=== PATIENT | male | born 1950 | race Caucasian/White ===

== ENCOUNTER 2019-12-24 16:32 | Outpatient (CLI) | payer MEDICARE, OTHER, SELFPAY ==
--- NOTE | ~2019-12-24 | XR_ITS ---
EXAMINATION: XR foot RT min 3V DATE: 12/24/2019 17:14 INDICATION: Right foot pain. TECHNIQUE: 4 views of the right foot with weightbearing were obtained. COMPARISON: None. FINDINGS: Forefoot varus and pes planus are noted. No fracture. There is mild osteoarthritis of first metatarsophalangeal joint and some of the interphalangeal joints and midfoot joints. There is modera te to severe osteoarthritis of second proximal and distal interphalangeal joints and second tarsometa tarsal joint. There are enthesophytes at the posterior and plantar aspects of calcaneal tuberosity. IMPRESSION: 1. Polyarticular osteoarthritis. Reviewed, dictated and finalized at location A.
--- NOTE | ~2019-12-24 | XR_ITS ---
EXAMINATION: XR foot LT min 3V DATE: 12/24/2019 17:14 INDICATION: Left foot pain. TECHNIQUE: 4 views of the left foot with weightbearing were obtained. COMPARISON: Left foot radiographs 10/28/2015 FINDINGS: There is forefoot varus. No fracture. There is mild osteoarthritis of first metatarsophalan geal joint and some of the interphalangeal joints and midfoot joints. There is severe osteoarthritis of second and third tarsometatarsal joints. There is an enthesophyte at posterior aspect of calcaneal tuberosity. IMPRESSION: 1. Polyarticular osteoarthritis. Reviewed, dictated and finalized at location A.
== END 2019-12-24 16:33 | disposition home or self-care (01) ==
PROVIDERS: PCP Family Medicine; Visit Provider Podiatrist Foot & Ankle Surgery
DX: M19.071 Primary osteoarthritis, right ankle and foot (principal); M19.072 Primary osteoarthritis, left ankle and foot
CPT/HCPCS: 73630

== ENCOUNTER 2020-05-16 11:26 | Outpatient (NON) | payer MEDICARE, OTHER, SELFPAY ==
[2020-05-17 21:18] LABS: SARS-CoV-2 RNA PCR Negative
== END 2020-05-16 11:27 ==
LOC: ANHCOVIDDT 11:30
PROVIDERS: PCP Family Medicine; Visit Provider Family Medicine
DX: Z20.828 Contact with and (suspected) exposure to other viral communicable diseases (principal)
CPT/HCPCS: 87635; C9803; U0003

== ENCOUNTER 2021-02-17 14:45 | Emergency (ER) | payer MEDICARE, OTHER, SELFPAY ==
[2021-02-17] VITALS (8 sets, daily range): BP systolic 138–167; BP diastolic 59–85; PULSE 95–127; RESP 18–22; TEMP 37.7–39; O2SAT 94–99
--- NOTE | ~2021-02-17 | CT_ITS ---
EXAMINATION: CT abdomen pelvis w con DATE: 02/17/2021 19:01 INDICATION: Left lower quadrant abdominal pain, nausea and vomiting TECHNIQUE: Computed tomography (CT) of the abdomen and pelvis was performed with 100 mL Omnipaque-350 intravenous contrast. Automated exposure control and iterative reconstruction technique were employe d. The dose-length product was 887.00 mGy-cm. COMPARISON: CT pelvis dated 09/06/2017 FINDINGS: Elevation of the right hemidiaphragm with basilar compressive atelectasis at the right middle and low er lobes. Heart size is normal. No pericardial or pleural effusion. Liver, gallbladder, spleen, pancr eas, bilateral adrenal glands and kidneys are normal. No abnormal bowel wall thickening or obstructio n. Normal appendix. Bladder is normal. Mild prostatomegaly. Moderate-sized left and small right fat-c ontaining inguinal hernias. No free intraperitoneal gas or fluid. No pathologically enlarged abdomina l or pelvic lymphadenopathy. Severe lumbar spondylosis. IMPRESSION: 1. No acute intra-abdominal/pelvic process. 2. Small right and moderate-sized left fat-containing inguinal hernias. Reviewed, dictated and finalized at location A.
[2021-02-17 15:56] LABS: INR 0.9; Prothrombin Time 12.1 Seconds (11.1-14.7)
[2021-02-17 15:57] LABS: Partial Thromboplastin Time 28.5 SECONDS (22.3-36.8)
[2021-02-17 18:35] LABS: Basophils Percent Auto 0.3 % (0.2-1.2); Eosinophils Percent Auto 0.1 % (0-4.4); Hematocrit 43.1 % (42.0-52.0); Hemoglobin 14.6 g/dL (14.0-18.0); Immature Granulocyte Absolute 0.05 K/mm3 (0.00-0.031); Immature Granulocyte Percent A 0.4 % (0-0.5); Lymphocytes Absolute Auto 0.87 K/mm3 (0.9-3.2); Lymphocytes Percent Auto 7.3 % (18.3-44.2); Mean Corpuscular HGB Conc 33.9 g/dl (32-36); Mean Corpuscular Hemoglobin 29.7 pg (26-34); Mean Corpuscular Volume 87.8 fl (80-100); Mean Platelet Volume 9.6 fl (7.4-10.4); Neutrophils Percent Auto 83.9 % (45.5-73.1); Platelet Count Result 411 k/mm3 (150-375); Red Blood Count 4.91 M/mm3 (4.6-6.20); Red Cell Distribution Width 13.8 % (11.5-14.5); White Blood Count 11.9 K/mm3 (4.5-10.0)
[2021-02-17 18:38] LABS: Add Urine Microscopic? YES; Appearance Urine Clear (Clear); Bilirubin Urine Negative (Negative); Blood Urine Negative (Negative); Color Urine Amber (Yellow); Glucose Urine UA Negative (Negative); Ketones Urine Negative (Negative); Leukocyte Esterase Ur Negative LEU/UL (Negative); Nitrate Urine Negative (Negative); Protein Urine 3+ mg/dL (Negative); Specific Grav Ur 1.014 (1.001-1.035); Urobilinogen Urine Negative mg/dL (<2.0); WBC Urine 0-3 /hpf
[2021-02-17 18:46] LABS: Estimated CRCL calculation 39 ml/min; Estimated Glomerular Filt Rate 43
[2021-02-17 19:13] LABS: Alanine Aminotransferase 442 U/L (4-50); Albumin Level 4.4 g/dL (3.5-5.1); Alkaline Phosphatase 320 U/L (38-126); Anion Gap 9 mmol/L (8-16); Aspartate Amino Transferase 356 U/L (17-59); Bilirubin,Total 1.7 mg/dL (0.2-1.3); Blood Urea Nitrogen 21 mg/dL (9-20); Calcium 9.4 mg/dL (8.4-10.2); Carbon Dioxide 29 mmol/L (22-30); Chloride 98 mmol/L (98-107); Estimated CRCL calculation 39 ml/min; Estimated Glomerular Filt Rate 43; Glucose 127 mg/dL (65-110); Potassium 3.9 mmol/L (3.4-5.0); Sodium 136 mmol/L (137-145)
--- NOTE | 2021-02-17 20:33 | ED.ABDPAIN ---
HPI - Abdominal Pain General Chief Complaint: Abdominal Pain Stated Complaint: abd pain/temp Time Seen by Provider: 02/17/21 17:50 Source: patient Mode of arrival: ambulatory Limitations: no limitations History of Present Illness HPI narrative: 70-year-old with a history of hypertension here with complaints of left lower abdominal pain for past 3 days associated with nausea and vomiting. He denies any diarrhea. Denies any blood in the stool. No previous history of diverticulosis or diverticulitis. He denies trauma. MD elicited complaint: abdominal pain Pertinent past history: none Onset (ago): day(s) (3) Pain Consistency: constant Location: LLQ Severity: moderate Quality: aching Radiation: none Migration to: no migration Exacerbating factors: nothing Relieving factors: nothing Associated symptoms: fever Related Data Allergies Allergy/AdvReac Type Severity Reaction Status Date / Time No Known Allergies Allergy Unverified 02/17/21 18:04 Review of Systems Review of Systems: All systems reviewed & are unremarkable except as noted in HPI and below Constitutional: Constitutional: Reports fever(s) Eyes: Eyes: Reports no additional eye complaints ENT: Reports system reviewed and no additional complaints, except as documented Cardiovascular: Cardiovascular: Reports no additional cardiovascular complaints Respiratory: Respiratory: Reports no additional respiratory complaints Gastrointestinal: Gastrointestinal: Reports as per HPI Genitourinary: Genitourinary: Reports no additional male genitourinary complaints Musculoskeletal: Musculoskeletal: Reports no additional musculoskeletal complaints Neurologic: Reports system reviewed and no additional complaints, except as documented [facility] Family History Family History Father Family history of osteoarthritis Family history of primary malignant neoplasm of liver Family history of lung cancer Family history of throat cancer Patient's father is Mother Family history of malignant neoplasm Family history of malignant neoplasm of thyroid Family history of malignant neoplasm of bone Family history of malignant neoplasm of breast in first degree relative Other Hypertension Social History Social History Smoking status: Never smoker Alcohol intake: current Exam Narrative: GENERAL: Well-appearing, well-nourished, and in no acute distress. Febrile HEAD: Normocephalic, atraumatic. EYES: PERRLA and EOMI.. NECK: Supple. CHEST: Clear to auscultation. No respiratory distress. HEART: Tachycardic. No murmur heard. Normal peripheral pulses. ABDOMEN: Soft, Mild tenderness in the LLQ, nondistended, normal active bowel sounds. EXTREMITIES: Normal range of motion. No edema. SKIN: Warm, dry, no rash. NEURO: No focal deficits. Alert and oriented x3. PSYCH: Normal mood and affect. Course Course Emergency Course: Patient did receive IV fluids and IV Tylenol. Discussed lab values CT findings with the patient. Patient feeling much better I discussed lab, CT findings with the patient. Told him to follow-up with his primary doctor tomorrow. I discussed with his primary doctor Dr. Childress nurse practitioner. Vital Signs Vital signs: Vital Signs Temperature 39.0 C H 02/17/21 14:52 Pulse Rate 123 H 02/17/21 14:52 Respiratory Rate 20 02/17/21 14:52 Blood Pressure 159/85 H 02/17/21 14:52 Pulse Oximetry 99 02/17/21 14:52 Temperature 37.7 C H 02/17/21 20:29 Pulse Rate 99 02/17/21 20:29 Respiratory Rate 22 H 02/17/21 20:29 Blood Pressure 146/69 H 02/17/21 20:29 Pulse Oximetry 95 02/17/21 20:29 MDM - Abdominal Pain MDM Narrative Medical decision making narrative: Given history of her left lower quadrant pain I would like to do a CBC chemistry and CAT scan to rule out diverticulitis or bowel labs obstru
[2021-02-17 20:40] LABS: CRP 15.6 mg/dL (<1.0)
== END 2021-02-17 21:42 | disposition home or self-care (01) ==
PROVIDERS: Emergency Medicine; Emergency Provider Family Medicine; PCP Family Medicine
DX: R10.32 Left lower quadrant pain (principal); R50.9 Fever, unspecified; K40.90 Unilateral inguinal hernia, without obstruction or gangrene, not specified as recurrent
CPT/HCPCS: 36415; 74177; 80053; 81001; 83605; 85025; 85610; 85730; 86140; 87040; 87077; 87186; 96374; 99284; J0131; Q9967

== ENCOUNTER → 2021-09-20 16:46 | Outpatient (CLI) | payer MEDICARE, OTHER, SELFPAY ==
--- NOTE | ~2021-09-20 | XR_ITS ---
XR lumbar spine 2-3V DATE: 09/20/2021 17:30 INDICATION: Lower extremity paresthesia TECHNIQUE: AP, lateral, coned lateral lumbosacral views COMPARISON: 05/10/2016 MR lumbar spine FINDINGS: Lower thoracic spine degenerative spurring. There is very severe degenerative disc disease at L1-2, L2-3, L3-4 and L5-S1. There is associated mil d retrolisthesis at each of these levels. There is moderate degenerative disc disease and mild grade 1 anterolisthesis at L4-5. There is degene rative change at the apophyseal joints throughout the lumbar and lumbosacral spine. No recent fracture or bone destruction is evident. The included lower thoracic and lumbar pedicles ap pear intact. The sacroiliac joints are intact. IMPRESSION: Severe degenerative changes Reviewed, dictated and finalized at location A. IMPRESSION: Severe degenerative changes
== END ==
PROVIDERS: Visit Provider Nurse Practitioner Family
DX: R20.2 Paresthesia of skin (principal); M85.88 Other specified disorders of bone density and structure, other site
CPT/HCPCS: 72100

== ENCOUNTER 2021-11-02 09:22 | Outpatient (CLI) | payer MEDICARE, OTHER, SELFPAY ==
--- NOTE | 2021-11-02 11:00 | NEURO_ITS ---
Impression: # Complains of numbness below the waist. # Normal nerve conduction study. # Normal needle/EMG exam except mild scarcity of motor unit potentials. # Clinical correlation recommended; Higher involvement needs to be ruled out. Nerve Conduction Studies Anti Sensory Summary Table Stim Site NR Peak (ms) P-T Amp (?V) Site1 Site2 Delta-P (ms) Dist (cm) Taco (m/s) Left Sup Fibular Anti Sensory (Ant Lat Mall) 14 cm 4.0 41.4 14 cm Ant Lat Mall 4.0 16.0 40 Right Sup Fibular Anti Sensory (Ant Lat Mall) 14 cm 3.4 11.7 14 cm Ant Lat Mall 3.4 16.0 47 Left Sural Anti Sensory (Lat Mall) Calf 3.4 10.8 Calf Lat Mall 3.4 16.0 47 Right Sural Anti Sensory (Lat Mall) Calf 3.8 10.2 Calf Lat Mall 3.8 16.0 42 Motor Summary Table Stim Site NR Onset (ms) O-P Amp (mV) Site1 Site2 Delta-0 (ms) Dist (cm) Taco (m/s) Left Peroneal Motor (Vastus Med) Ankle 4.5 1.5 Popit Ankle 8.2 36.0 44 Popit 12.7 1.2 Right Peroneal Motor (Vastus Med) Ankle 4.5 0.5 Popit Ankle 8.6 36.0 42 Popit 13.1 0.5 Left Tibial Motor (Abd Lou Brev) Ankle 5.3 2.6 Knee Ankle 9.5 39.0 41 Knee 14.8 1.2 Right Tibial Motor (Abd Lou Brev) Ankle 5.2 3.4 Knee Ankle 9.6 39.0 41 Knee 14.8 2.2 F Wave Studies NR F-Lat (ms) L-R F-Lat (ms) Left Peroneal (Mrkrs) (EDB) 57.66 1.17 Right Peroneal (Mrkrs) (EDB) 58.83 1.17 Left Tibial (Mrkrs) (Abd Hallucis) 57.50 0.00 Right Tibial (Mrkrs) (Abd Hallucis) 57.50 0.00 EMG Side Muscle Nerve Root Ins Act Fibs Amp Dur Recrt Comment Right AntTibialis Dp Br Fibular L4-5 Nml Nml Nml Nml Nml Right Gastroc Tibial S1-2 Nml Nml Nml Nml Nml Right Fibularis Long Sup Br Fibular L5-S1 Nml Nml Nml Nml Nml Right Flex Dig Long Tibial L5-S2 Nml Nml Nml Nml Nml Right Ext Dig Brev Dp Br Fibular L5, S1 Nml Nml Nml Nml Nml Left AntTibialis Dp Br Fibular L4-5 Nml Nml Nml Nml Nml Left Gastroc Tibial S1-2 Nml Nml Nml Nml Nml Left Fibularis Long Sup Br Fibular L5-S1 Nml Nml Nml Nml Nml Left Flex Dig Long Tibial L5-S2 Nml Nml Nml Nml Nml Left Ext Dig Brev Dp Br Fibular L5, S1 Nml Nml Nml Nml Nml MTDD
== END 2021-11-02 09:23 | disposition home or self-care (01) ==
LOC: ANHNEURO 09:24
PROVIDERS: Visit Provider Nurse Practitioner Family
DX: R20.2 Paresthesia of skin (principal)
CPT/HCPCS: 95886; 95910

== ENCOUNTER → 2022-01-07 12:18 | Outpatient (CLI) | payer MEDICARE, OTHER, SELFPAY ==
--- NOTE | ~2022-01-07 | MR_ITS ---
EXAMINATION: MR lumbar spine wo con DATE: 01/07/2022 12:43 INDICATION: Degeneration of lumbar intervertebral discs with numbness extending from the waist down a fter walking or standing over the past 6 months. TECHNIQUE: Magnetic resonance imaging (MRI) of the lumbar spine was performed without intravenous con trast. Sequences included sagittal T2-weighted FSE, sagittal T2-weighted FS FSE, sagittal T1-weighted FSE, and axial T2-weighted FSE. COMPARISON: 05/10/2016 FINDINGS: 1 mm retrolisthesis L1 on L2, 2 mm retrolisthesis L2 on L3 and L3 on L4 and 3 mm retrolisthesis L5 on S1. Unchanged chronic mild anterior wedging at T11 and T12. Interval progression of severe disc heig ht loss at L1-L2 with fusion or developing fusion at the right side of the disc space. Additional sev ere disc height loss with degenerative endplate changes at L2-L3. Moderate to severe left-sided disc height loss with left-sided temporal endplate changes at L3-L4. Mild disc height loss at T10-T11 thro ugh T12-L1 and L4-L5, moderate disc height loss at L5-S1. Marrow signal is normal aside from the fibr ofatty and fibrovascular degenerative endplate changes. The conus medullaris terminates at L1-L2. The re is normal signal in the caudal spinal cord. Paravertebral soft tissues are unremarkable. The follo wing disc levels are specifically discussed: T12-L1: Disc is mildly bulging. There is mild bilateral facet joint osteoarthritis. There is minimal bilateral neural foraminal stenosis. There is normal central canal stenosis. L1-L2: Annular fissure and small right paracentral disc extrusion which extends-2 mm beyond the infer ior margin of L1 and which extends 4 mm caudal to the level of the more anterior superior endplate of L1. There is mild bilateral facet joint osteoarthritis. There is moderate right and mild to moderate left neural foraminal stenosis. There is moderate central canal stenosis. L2-L3: The disc does not extend beyond the more posterior endplate margin of L2. There is hypertrophy of the ligamentum flavum. There is severe left and moderate right facet joint osteoarthritis. There is moderate left and moderate to severe right neural foraminal stenosis. Inward There is severe cent ral canal stenosis at level of the disc as well as slightly more cephalad where there is inward bulgi ng of the epidural fat. The cauda equina appears taut caudal to the level of the disc space with some serpiginous lax appearing fibers to the cauda equina seen more cephalad at the level of the L1 verte bral body. L3-L4: Disc does not extend beyond the more posterior endplate margin of L1. There is hypertrophy of the ligamentum flavum. There is a left and mild to moderate right facet joint osteoarthritis. There is moderate bilateral neural foraminal stenosis. There is severe central canal stenosis. There is inc reased epidural fat extending the region of severe stenosis both above and below the level of the dis c space. L4-L5: Disc bulge extending beyond the endplate margins at the left and right lateral recesses but no t beyond the more posterior endplate margin of L3-4 centrally. There is hypertrophy of the ligamentum flavum. There is severe left and moderate right facet joint osteoarthritis. There is moderate bilate ral neural foraminal stenosis. There is severe central canal stenosis. L5-S1: Disc is mildly bulging with annular fissure and superimposed right foraminal zone disc extrusi on with disc material extending couple millimeters cephalad and caudal to the level of the endplates. There is severe bilateral facet joint osteoarthritis. There is moderate left and moderate to severe right neural foraminal stenosis. There is mild central canal stenosis. IMPRESSION: 1. Significant interval progression in severe lumbar spondylosis with severe central canal stenosis e xtending from L1-L2 through L4-L5 and with moderate to severe gauri
== END ==
PROVIDERS: PCP Family Medicine; Visit Provider Family Medicine
DX: M47.817 Spondylosis without myelopathy or radiculopathy, lumbosacral region (principal); M48.07 Spinal stenosis, lumbosacral region
CPT/HCPCS: 72148

== ENCOUNTER → 2023-01-25 12:55 | Outpatient (CLI) | payer MEDICARE, OTHER, SELFPAY ==
--- NOTE | ~2023-01-25 | CT_ITS ---
EXAMINATION: CT lumbar spine wo con DATE: 01/25/2023 14:33 INDICATION: Neurogenic claudication due to lumbar stenosis. TECHNIQUE: Computed tomography (CT) of the lumbar spine was performed without intravenous contrast. A utomated exposure control and iterative reconstruction technique were employed. The dose-length produ ct was 780.88 mGy-cm. COMPARISON: Lumbar spine MRI 01/25/2023 FINDINGS: There is 8 degrees dextrocurvature of lumbar spine. There is 3 mm retrolisthesis of L1 on L 2 and L2 on L3. There is severely decreased disc height at L1-L2 with interbody fusion. There is terri rely decreased disc height at L2-L3 and L3-L4, moderately decreased disc height at L4-L5, and severel y decreased disc height at L5-S1. There is developmental osseous central canal stenosis in lumbar spi ne. The following disc levels are specifically discussed: L1-L2: There is severe bilateral facet joint osteoarthritis. There is moderate right and mild left ne ural foraminal stenosis. There is mild central canal stenosis. L2-L3: The disc is bulging. There is severe bilateral facet joint osteoarthritis. There is moderate b ilateral neural foraminal stenosis. There is mild central canal stenosis. There is moderate stenosis of the lateral recesses. L3-L4: The disc is bulging. There is severe bilateral facet joint osteoarthritis. There is moderate b ilateral neural foraminal stenosis. There is mild central canal stenosis. There is moderate stenosis of the lateral recesses. L4-L5: The disc is bulging. There is severe bilateral facet joint osteoarthritis. There is moderate b ilateral neural foraminal stenosis. There is severe central canal stenosis. L5-S1: The disc is bulging. There is severe bilateral facet joint osteoarthritis. There is severe rig ht and moderate left neural foraminal stenosis. There is mild central canal stenosis. IMPRESSION: 1. Severe lumbar spondylosis. Reviewed, dictated and finalized at location A.
--- NOTE | ~2023-01-25 | MR_ITS ---
MRI of the lumbar spine Clinical History: Spinal stenosis, claudication Technique: Axial T2-weighted images, and sagittal T1-weighted, T2-weighted, and T2 fat-sat images wer e acquired. COMPARISON: 01/07/2022 Findings: No acute fracture seen. 5 mm retrolisthesis of L1 over L2 present. 5 mm retrolisthesis of L 2 over L3 present. Minimal grade 1 retrolisthesis of L3 over L4 present. Minimal grade 1 retrolisthes is of L5 over S1 present. Osseous alignment is essentially stable from prior exam. There are reactive marrow signal changes due to degenerative disc disease, most particularly about the L1-L2 and L2-L3 disc spaces. At L1-L2, there is severe degenerative disc narrowing. There is mild facet arthropathy. There is no f rank central canal stenosis. There is severe right neural foraminal narrowing and mild left neural fo raminal narrowing. At L2-L3, there is severe degenerative disc narrowing. Disc bulge and severe facet arthropathy result in moderate to severe spinal canal stenosis/thecal sac compression. There is severe bilateral neural foraminal narrowing. At L3-L4, there is advanced degenerative disc narrowing. Disc bulge and severe facet arthropathy resu lt in severe spinal canal stenosis/thecal sac compression. There is severe bilateral neural foraminal narrowing, left worse than right. At L4-L5, there is moderate degenerative disc narrowing. Disc bulge and severe facet arthropathy resu lt in severe spinal canal stenosis/thecal sac compression. There is severe right neural foraminal mary carmen rowing, and moderate to severe left neural foraminal narrowing. At L5-S1, there is diffuse disc bulge with severe facet arthropathy. There is severe bilateral neural foraminal narrowing. No brady central canal stenosis. Paravertebral soft tissues are unremarkable. Impression: Severe degenerative spondylosis throughout the lumbar spine, as detailed above. There is multilevel s evere spinal canal stenosis/thecal sac compression, and multilevel severe bilateral neural foraminal narrowing. Multiple grade 1 retrolistheses in the lumbar spine, as detailed above. Reviewed, dictated and finalized at [facility] M. Impression: Severe degenerative spondylosis throughout the lumbar spine, as detailed above. There is multilevel severe spinal canal stenosis/thecal sac compression, and m ultilevel severe bilateral neural foraminal narrowing. Multiple grade 1 retrolistheses in the lumbar spine, as detailed above.
== END ==
PROVIDERS: PCP Family Medicine; Visit Provider Neurological Surgery
DX: M48.062 Spinal stenosis, lumbar region with neurogenic claudication (principal); M47.816 Spondylosis without myelopathy or radiculopathy, lumbar region
CPT/HCPCS: 72131; 72148

== ENCOUNTER 2023-09-15 14:00 | Outpatient (CLI) | payer MEDICARE, OTHER, SELFPAY ==
--- NOTE | ~2023-09-15 | XR_ITS ---
EXAMINATION: XR hip LT 2V w AP pelvis INDICATION: Left hip pain TECHNIQUE: AP view the pelvis and two views of the left hip are obtained. COMPARISON: None available FINDINGS: Bone alignment is normal. There is no fracture. There is mild osteoarthritis of the hips. S evere lower lumbar spondylosis is noted. IMPRESSION: 1. No acute osseous abnormality. Reviewed, dictated and finalized at location B. 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
== END 2023-09-15 14:01 ==
LOC: MICIMG 14:03
PROVIDERS: PCP Family Medicine; Visit Provider Family Medicine
DX: M25.552 Pain in left hip (principal)
CPT/HCPCS: 73502

== ENCOUNTER 2023-11-08 14:32 | Outpatient (CLI) | payer MEDICARE, OTHER, SELFPAY ==
--- NOTE | ~2023-11-08 | US_ITS ---
US renal BI DATE: 11/08/2023 15:26 INDICATION: Hypertensive chronic renal disease TECHNIQUE: Real-time imaging of the kidneys and urinary bladder COMPARISON: 02/17/2021 CT abdomen pelvis FINDINGS: The right kidney measures approximately 10.2 cm length, left kidney 9.6 cm length. Relatively increased echogenicity of the renal parenchyma may be consistent with chronic renal diseas e. No renal mass lesion or hydronephrosis is evident. No intraluminal mass lesion of the urinary bladder is detected. IMPRESSION: Relatively increased echogenicity of the bilateral renal parenchyma which may be due to c hronic renal disease No evidence of hydronephrosis or renal mass lesion Reviewed, dictated and finalized at Location A. Reviewed, dictated and finalized at location A. IMPRESSION: Relatively increased echogenicity of the bilateral renal parenchyma which may be due to chronic renal disease No evidence of hydronephrosis or renal mass lesion
== END 2023-11-08 14:33 | disposition home or self-care (01) ==
LOC: ANHIMG 14:32
PROVIDERS: PCP Family Medicine
DX: I12.9 Hypertensive chronic kidney disease with stage 1 through stage 4 chronic kidney disease, or unspecified chronic kidney disease (principal)
CPT/HCPCS: 76775

== ENCOUNTER 2023-11-15 10:24 | Outpatient (CLI) | payer MEDICARE, OTHER, SELFPAY ==
[2023-11-15 11:18] LABS: Basophils Absolute Auto 0.1 K/mm3 (0.0-0.1); Basophils Percent Auto 0.8 % (0.2-1.2); Eosinophils Absolute Auto 0.5 K/mm3 (0-0.3); Hematocrit 42.4 % (42.0-52.0); Hemoglobin 14.1 g/dL (14.0-18.0); Immature Granulocyte Absolute 0.03 K/mm3 (0.00-0.031); Immature Granulocyte Percent A 0.5 % (0-0.5); Lymphocytes Absolute Auto 1.31 K/mm3 (0.9-3.2); Lymphocytes Percent Auto 19.8 % (18.3-44.2); Mean Corpuscular HGB Conc 33.3 g/dl (32-36); Mean Corpuscular Hemoglobin 30.4 pg (26-34); Mean Corpuscular Volume 91.4 fl (80-100); Mean Platelet Volume 9.2 fl (7.4-10.4); Monocytes Absolute Auto 0.6 K/mm3 (0.1-0.6); Monocytes Percent Auto 8.9 % (2.6-8.5); Neutrophils Absolute Auto 4.2 K/mm3 (1.3-6.7); Platelet Count Result 413 k/mm3 (150-375); Red Blood Count 4.64 M/mm3 (4.6-6.20); Red Cell Distribution Width 14.6 % (11.5-14.5); White Blood Count 6.6 K/mm3 (4.5-10.0)
[2023-11-15 11:25] LABS: Creatinine Urine 26.6 mg/dL; Total Protein Urine Random 29 mg/dL; Ur Ttl Prot Creatinine Ratio 1.09 mg/mg (0-0.20)
[2023-11-15 11:38] LABS: Albumin Level 4.5 g/dL (3.5-5.1); Anion Gap 7 mmol/L (4-12); Blood Urea Nitrogen 37 mg/dL (9-20); Calcium 9.4 mg/dL (8.4-10.2); Carbon Dioxide 29 mmol/L (22-30); Chloride 98 mmol/L (98-107); Estimated Glomerular Filt Rate 35; Glucose 130 mg/dL (65-110); Phosphorus 3.6 mg/dL (2.5-4.5); Potassium 3.6 mmol/L (3.4-5.0); Sodium 134 mmol/L (137-145)
[2023-11-15 11:45] LABS: Parathyroid Intact 59.7 pg/mL (7.5-53.5)
[2023-11-15 12:07] LABS: MALB Creatinine Ratio 436.1 mg/g (0-30)
[2023-11-16 06:54] LABS: Protein, Total 7.3 g/dL (6.1-8.1)
[2023-11-16 13:04] LABS: Kappa\\Lambda Light Chains 1.45 (0.26-1.65); Lambda Light Chain 35.5 mg/L (5.7-26.3)
[2023-11-17 08:28] LABS: Albumin 4.2 g/dL (3.8-4.8); Alpha 1 Globulin 0.3 g/dL (0.2-0.3); Alpha 2 Globulin 0.7 g/dL (0.5-0.9); Beta 1 Globulin 0.5 g/dL (0.4-0.6); Gamma Globulin 1.2 g/dL (0.8-1.7)
[2023-11-21 14:58] LABS: Immunofixation, Serum Normal pattern.
== END 2023-11-15 10:25 | disposition home or self-care (01) ==
PROVIDERS: PCP Family Medicine
DX: I12.9 Hypertensive chronic kidney disease with stage 1 through stage 4 chronic kidney disease, or unspecified chronic kidney disease (principal); N18.9 Chronic kidney disease, unspecified
CPT/HCPCS: 36415; 80069; 82043; 82570; 83883; 83970; 84155; 84156; 84165; 85025; 86334

== ENCOUNTER 2024-08-19 11:25 | Outpatient (CLI) | payer MEDICARE, OTHER, SELFPAY ==
--- OUTSIDE RECORDS SUMMARY | 2024-08-19 12:15 | XMS_ITS | Clinical Summary ---
Author Organization 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
--- OUTSIDE RECORDS SUMMARY | 2024-08-19 12:15 | XMS_ITS | Clinical Summary ---
Author Organization [facility] Address [address] [place] [address] Care Team Providers Care Cement Production Plant Operator Name Role Phone Nelia Naylor MD Primary Care Provider + Allergies No known active allergies Medications bimatoprost (LUMIGAN) 0.01 % ophthalmic dropsIndications :open angle glaucoma Administer 1 drop into both eyes nightly as needed (dry eyes) 5 Active montelukast (SINGULAIR) 10 mg tabletIndication s:Seasonal Allergic Rhinitis Take 1 tablet (10 mg total) by mouth nightly [address] (PROTONIX) 40 mg EC tablet Take 1 tablet (40 mg total) by mouth every morning 2 Active allopurinoL (ZYLOPRIM) 100 mg tabletIndication s:prevention of acute gout attack Take 2 tablets (200 mg total) by mouth 2 (two) times a day 9 Active cycloSPORINE (Restasis) 0.05 % ophthalmic emulsion Administer 1 drop into both eyes as needed (dry eye) Active fluticasone propionate (FLONASE) 50 mcg/actuation nasal spray Administer 1 spray into each nostril as needed for allergies 9 Active rosuvastatin (CRESTOR) 40 mg tabletIndication s:hyperlipidemia Take 1 tablet (40 mg total) by mouth every morning 3 Active carvediloL (COREG) 12.5 mg tabletIndication s:hypertension Take 1 tablet (12.5 mg total) by mouth 2 (two) times a day with meals 4 11/30/19 25 Active losartan (COZAAR) 50 mg tabletIndication s:hypertension Take 1 tablet (50 mg total) by mouth every morning 4 11/30/19 25 Active tamsulosin (FLOMAX) 0.4 mg extended release capsuleIndicatio ns:benign prostatic hyperplasia with lower urinary tract sx Take 1 capsule (0.4 mg total) by mouth every morning 4 11/30/19 25 Active torsemide (DEMADEX) 20 mg tabletIndication s:Edema Take 1 tablet (20 mg total) by mouth general studies program chair before breakfast 4 11/30/19 25 Active tadalafiL (CIALIS) 5 mg tablet Take 1 tablet (5 mg total) by mouth every morning 4 Active mupirocin (BACTROBAN) 2 % ointment Apply to each nostril 2 (two) times a day Use pea size amount in each nostril twice daily for 5 days prior to surgery day. After application, press sides of nose together and gently massage. 22 g 4 Active multivit-mineral s/folic acid (CENTRUM ADULTS ORAL) Take by mouth every morning Active DULoxetine DR (CYMBALTA) 30 mg capsule Take 1 capsule (30 mg total) by mouth daily as needed (pain/inflammat ion) Active HYDROcodone-acet aminophen (NORCO) 7.5-325 mg per tabletIndication s:Pain Take 1 tablet by mouth every 4 (four) hours as needed for pain 40 tablet 4 Active cyclobenzaprine (FLEXERIL) 10 mg tablet Take 1 tablet (10 mg total) by mouth 3 (three) times a day as needed for muscle spasms 40 tablet 4 Active Active Problems Problem Noted Date Diagnosed Date Neurogenic claudication due to lumbar spinal elaina nosis 04/16/2024 Pruritic rash 01/30/2024 Back pain 09/28/2023 Spinal stenosis 09/28/2023 Primary osteoarthritis of right knee 09/18/2023 Primary osteoarthritis of left knee 09/18/2023 Pain of left hip joint 09/10/2023 Herpes simplex 03/02/2023 Cobalamin deficiency 12/20/2022 Anemia 11/15/2022 High prostate specific antigen (PSA) 09/16/2022 High serum creatinine 09/16/2022 Degeneration of lumbar intervertebral disc 09/12 Disorder of bursae of shoulder region 02/23/2022 Tailor's bunion of right foot 12/30/2019 Arthritis 12/16/2019 Foot pain 12/16/2019 Gout 12/16/2019 Hypertensive disorder 12/16/2019 Hypercholesterolemia 12/16/2019 Incarcerated inguinal hernia 02/15/2018 Overview (02/15/2018): Added automatically from request for surgery [id number] 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 Nuclear sclerotic cataract 08/18/2015 Visual field defect 03/04/2015 Acquired ptosis of eyelid of both eyes 5 Arthralgia of shoulder 02/26/2014 Keratosis, senilis 01/25/2013 Lentigo 01/25/2013 Benign neoplasm of skin of trunk 01/25/2013 Skin tag 01/25/2013 Encounters Date Type Department Care Team Description 06/24/2024 11:48 AM GOVERNMENT GUARD - 06/24/2024 11:59 PM GOVERNMENT GUARD Hospital Encounter [facility] - Imaging [address] [place] [address] Neurogenic claudication due to lumbar spinal stenosis Discharge Disposition: Discharge to home or self care 06/24/2024 11:30 AM GOVERNMENT GUARD Office Visit [facility] [address] [address] Edwardo Toledo MD PhD Neurogenic claudication due to lumbar spinal stenosis (Primary Dx) 06/21/2024 Orders Only [facility] [address] [facility] [address] [address] Edwardo Toledo MD PhD Neurogenic claudication due to lumbar spinal stenosis (Primary Dx) from Last 3 Months Immunizations Name Administration Dates Next Due Influenza, Quadrivalent, Hig h Dose, Preservative Free, Intrr 05/31/2021,04/10/2020 Influenza, Trivalent, High D ose, Split, Preservative Free, Intramuscular 04/27/2019,05/04/2018,05/19/2017,05/12 Influenza, Trivalent, Preser vative Free, Intramuscular 05/31/2021,04/19/2015 Influenza, Unspecified 05/15/2023,2019,05/12/2013,06/26 Pneumococcal Conjugate PCV 13 05/19/2017 Pneumococcal Polysaccharide PPV23 05/20/2018 Surgical History Surgery Date Site/Laterality Comments EPIDURAL INJECTION LUMBOSACRAL 05/23/2014 N/A KNEE ARTHROSCOPY Knee Arthroscopy (Therapeutic) - (Added by TW Conv) HERNIA REPAIR 07/10/2005 - 07/09/2006 Medical History Medical History Date Comments Personal history of other di seases of the circulatory system History of hypertension - (A dded by VANDANA Conv) Personal history of other en docrine, nutritional and metabolic disease History of hyperlipi demia - (Added by VANDANA Conv) Sleep apnea Gastric reflux Glaucoma Hypertension CKD (chronic kidney disease) , stage III (HCC) Family History Medical History Relation Name Comments Cancer Father Hypertension Father Cancer Mother Family history of cancer - (Added by TW Conv) Cancer Sister Relation Name Status Comments Father Mother Sister Social History Tobacco Use Types Packs/Day Years Used Date Smoking Tobacco: Never Smokeless Tobacco: Never Tobacco Cessation:Counseling Given: Not Answered Alcohol Use Standard Drinks/Week Comments Yes 12 (1 standard drink = 0.6 oz pu re alcohol) AUDIT-C Answer Date Recorded Q1: How often do you have a drink containing alc ohol? 2-3 times a week 05/07/2024 Q2: How many drinks containi ng alcohol do you have on a typical day when you are drinking? 3 or 4 05/07/2024 Q3: How often do you have si x or more drinks on one occasion? Never 05/07/2024 Personal Safety Answer Date Recorded Have you ever been in or are you currently in a harmful physical or emotional relationship or is someone making you feel afraid or unsafe? Denies 05/07/2024 Sex and Gender Information Value Date Recorded Sex Assigned at Not on file Legal Sex Male 2:55 AM GOVERNMENT GUARD Gender Identity Not on file Sexual Orientation Not on file Obstetrics History Last Filed Vital Signs Vital Sign Reading Time Taken Comments Blood Pressure 140/72 06/24/2024 12:19 PM GOVERNMENT GUARD Pulse 96 06/24/2024 12:19 PM GOVERNMENT GUARD Temperature 36.3 C (97.4 F) 05/07/2024 4:25 PM CDT Respiratory Rate 19 05/07/2024 5:00 PM CDT Oxygen Saturation 96% 06/24/2024 12:19 PM GOVERNMENT GUARD Inhaled Oxygen Concentration - - Weight 83 kg (183 lb) 06/24/2024 12:19 PM GOVERNMENT GUARD Height 157.5 cm (5' 2 ) 06/24/2024 12:19 PM GOVERNMENT GUARD Body Mass Index 33.47 06/24/2024 12:19 PM GOVERNMENT GUARD Plan of Treatment Health Maintenance Due Date Last Done Comments Colon Cancer Screening-Colonoscopy 1950 Depression Screening 1950 Hepatitis C Screening 1950 Hepatitis B Screening 1969 DTaP/Tdap/Td Vaccine (1 - Tdap) 01/04/2000 0 Zoster Vaccine (1 of 2) 2001 Well Visit 65+ 2016 Covid-19 Vaccine (4 - 2023-2 5 season) 2024 08/15/2021, 10/04/2020, 09/13/2020 Fall Risk Assessment 05/07/2025 05/07/2024 Pneumococcal vaccine 65+ Completed 05/20/2018, 05/10 Influenza Vaccine Completed 05/13/2024, , 05/31/2021, Additional history exists Procedures Procedure Name Priority Date/Time Associated Diagnosis Comments XR SPINE LUMBAR 2 OR 3 VIEWS Schedule Routine, Read Routine (OP Routine) 06/24/2024 12:05 PM GOVERNMENT GUARD Neurogenic claudication due to lumbar spinal stenosis from Last 3 Months Results * XR Spine Lumbar 2 or 3 Views (06/24/2024 12:05 PM GOVERNMENT GUARD) Anatomical Region Laterality Modality Spine N/A Digital Radiogra phy 06/24/2024 12:4 2 PM GOVERNMENT GUARD Impressions 06/24/2024 12:42 PM GOVERNMENT GUARD FINDINGS/IMPRESSION: 5 nonrib-bearing lumbar-type vertebral bodies. Subtle rightward curvature of the lumbar spine. Mild stepwise retrolisthesis L1-L4. Mild anterolisthesis L4 on L5. The facet joints are grossly intact. No new loss of lumbar vertebral body height. Multilevel degenerative changes seen with loss of disc, degenerative endplate changes, and osteophytes throughout most significant at L2-L3. There is fusion L1-L2. Multilevel degenerative facet arthrosis contributes to multilevel apparent neural foraminal narrowing. Mild degenerative changes in the sacroiliac joints bilaterally. Electronically signed by: Joshua Fagan M.D. Narrative 06/24/2024 12:42 PM GOVERNMENT GUARD EXAM: XR SPINE LUMBAR 2 OR 3 VIEWS INDICATION: Neurogenic claudication due to lumbar spinal stenosis COMPARISON: Radiograph 05/07/2024, CT 04/23/2024 Procedure Note Joshua Fagan MD - 06/24/2024 EXAM: XR SPINE LUMBAR 2 OR 3 VIEWS INDICATION: Neurogenic claudication due to lumbar spinal stenosis COMPARISON: Radiograph 05/07/2024, CT 04/23/2024 IMPRESSION: FINDINGS/IMPRESSION: 5 nonrib-bearing lumbar-type vertebral bodies. Subtle rightward curvature of the lumbar spine. Mild stepwise retrolisthesis L1-L4. Mild anterolisthesis L4 on L5. The facet joints are grossly intact. No new loss of lumbar vertebral body height. Multilevel degenerative changes seen with loss of disc, degenerative endplate changes, and osteophytes throughout most significant at L2-L3. There is fusion L1-L2. Multilevel degenerative facet arthrosis contributes to multilevel apparent neural foraminal narrowing. Mild degenerative changes in the sacroiliac joints bilaterally. Electronically signed by: Joshua Fagan M.D. 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
--- OUTSIDE RECORDS SUMMARY | 2024-08-19 12:15 | XMS_ITS | Referral Summary ---
Author Organization [facility] Address [address] [place] [address] Care Team Providers Care Hat Checker Name Role Phone Nelia Naylor MD Primary Care Provider + Encounters Date Type Department Care Team Description 06/24/2024 11:48 AM MANAGER OPERATIONAL - 06/24/2024 11:59 PM MANAGER OPERATIONAL Hospital Encounter [facility] - Imaging [address] [place] [id number] Neurogenic claudication due to lumbar spinal stenosis Discharge Disposition: Discharge to home or self care 06/24/2024 11:30 AM MANAGER OPERATIONAL Office Visit [facility] [address] [address] Edwardo Toledo MD PhD Neurogenic claudication due to lumbar spinal stenosis (Primary Dx) 06/21/2024 Orders Only [facility] [address] [address] Edwardo Toledo MD PhD Neurogenic claudication due to lumbar spinal stenosis (Primary Dx) from Last 3 Months Allergies No known active allergies Medications bimatoprost [...] 1 tablet (20 mg total) by mouth ranch hand before breakfast 4 11/30/19 25 Active tadalafiL [...] (02/15/2018): Added automatically from request for surgery [id number] 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 Nuclear sclerotic cataract 08/18/2015 Visual field defect 03/04/2015 Acquired ptosis of eyelid of both eyes 5 Arthralgia of shoulder 02/26/2014 Keratosis, senilis 01/25/2013 Lentigo 01/25/2013 Benign neoplasm of skin of trunk 01/25/2013 Skin tag 01/25/2013 Immunizations Name Administration Dates Next Due Influenza, Quadrivalent, Hig h Dose, Preservative Free, Intrr 05/31/2021,04/10/2020 Influenza, Trivalent, High D ose, Split, Preservative Free, Intramuscular 04/27/2019,05/04/2018,05/19/2017,05/12 Influenza, Trivalent, Preser vative Free, Intramuscular 05/31/2021,04/19/2015 Influenza, Unspecified 05/15/2023,2019,05/12/2013,06/26 Pneumococcal Conjugate PCV 13 05/19/2017 Pneumococcal Polysaccharide PPV23 05/20/2018 Social History Tobacco Use Types Packs/Day Years [...] on file Legal Sex Male 2:55 AM MANAGER OPERATIONAL Gender Identity Not on file Sexual Orientation Not on file Last Filed Vital Signs Vital Sign Reading Time Taken Comments Blood Pressure 140/72 06/24/2024 12:19 PM MANAGER OPERATIONAL Pulse 96 06/24/2024 12:19 PM MANAGER OPERATIONAL Temperature 36.3 C (97.4 F) 05/07/2024 4:25 PM CDT Respiratory Rate 19 05/07/2024 5:00 PM CDT Oxygen Saturation 96% 06/24/2024 12:19 PM MANAGER OPERATIONAL Inhaled Oxygen Concentration - - Weight 83 kg (183 lb) 06/24/2024 12:19 PM MANAGER OPERATIONAL Height 157.5 cm (5' 2 ) 06/24/2024 12:19 PM MANAGER OPERATIONAL Body Mass Index 33.47 06/24/2024 12:19 PM MANAGER OPERATIONAL Plan of Treatment Not on file Procedures Procedure Name Priority Date/Time Associated Diagnosis Comments XR SPINE LUMBAR 2 OR 3 VIEWS Schedule Routine, Read Routine (OP Routine) 06/24/2024 12:05 PM MANAGER OPERATIONAL Neurogenic claudication due to lumbar spinal stenosis from Last 3 Months Results * XR Spine Lumbar 2 or 3 Views (06/24/2024 12:05 PM MANAGER OPERATIONAL) Anatomical Region Laterality Modality Spine N/A Digital Radiogra phy 06/24/2024 12:4 2 PM MANAGER OPERATIONAL Impressions 06/24/2024 12:42 PM MANAGER OPERATIONAL FINDINGS/IMPRESSION: 5 nonrib-bearing lumbar-type vertebral bodies. Subtle [...] Joshua Fagan M.D. Narrative 06/24/2024 12:42 PM MANAGER OPERATIONAL EXAM: XR SPINE LUMBAR 2 OR 3 [...] esult from Last 3 Months Insurance MEDICARE FOR LIFE MEDICARE FOR LIFE MEDICARE FOR LIFE Care Teams Hat Checker Relationship Specialty Start Date End Date Nelia Naylor MD [address] [place] [address] PCP - General Family Medicine 02/21/22
--- OUTSIDE RECORDS SUMMARY | 2024-08-19 12:15 | XMS_ITS | CONTINUITY OF CARE DOCUMENT ---
Author Name nicole, nicole Address Unknown Organization [facility] Address [address] [place] [address] Phone [phone] Care Team Providers Care Director Of Field Coordination Name Role Phone Jessika DURAN, Sumeet Unavailable Desirae French NP Unavailable [phone] PROBLEMS Condition Status Date Provider Notes Hyperlipidemia active Sumeet Rosen MD Hypertension active Sumeet oRsen MD Abnormal electrocardiogram active Sumeet hadley MD ENCOUNTERS Date Type Provider Location Encounter Diag nosis 8 - 9 In-person encounter Office Visit Sumeet Rosen MD [facility] 2 - 3 In-person encounter Office Visit Sumeet Rosen MD [facility] HyperlipidemiaHypertensionAbnormal electrocardiogram VITAL SIGNS Date Observation Value Provider Body Mass Index (Ratio) 35.14 kg/m2 Nico Rosen MD oxygen saturation, oximetry 90 % Dominique Jammiemikayden [facility] blood pressure, diastolic 83 mm[Hg] Am leila Ventimiglia SIGNS AND DISPLAYS SALES REPRESENTATIVE blood pressure, systolic 161 mm[Hg] Show Low nda Jammiemikayden [facility] respiratory rate E&M 12 /min Natalia Roche pulse rate 99 /min Natalia Roche weight E&M 186 [lb_av] Natalia Roche height E&M 61 [in_i] Natalia Roche blood pressure, cuff size regular Lucia Roche Body Mass Index (Ratio) 34.20 kg/m2 Nico Rosen MD blood pressure, diastolic 74 mm[Hg] Lucia Roche blood pressure, systolic 135 mm[Hg] Myrna Roche oxygen saturation, oximetry 97 % Natalia Roche pulse rate 104 /min Natalia Roche respiratory rate E&M 12 /min Natalia Roche weight E&M 181 [lb_av] Natalia Roche height E&M 61 [in_i] Natalia Roche blood pressure, cuff size regular Lucia Roche ALLERGIES No Known Drug Allergies HISTORY OF MEDICATION USE Medication Status Instructions Dates Provider Indications Com ments carvedilol 12.5 mg tablet active Take 1 tablet by mouth twice a day Dominique Ventimiglia SIGNS AND DISPLAYS SALES REPRESENTATIVE duloxetine 30 mg capsule,delayed release(DR/EC) active Natalia Melchor carvedilol 12.5 mg tablet completed Take 1 tablet by mouth twice daily - Dominiqueleila Crawford SIGNS AND DISPLAYS SALES REPRESENTATIVE gabapentin 300 mg capsule active 1 capsule by mouth twice a day for pain Natalia Melchor hydrocodone-acet aminophen 7.5-325 mg tablet active 1 tablet by mouth once a day Natalia Roche losartan 50 mg tablet completed TAKE 1 TABLET TWICE DAILY - Dominiqueleila Agudelomiglia SIGNS AND DISPLAYS SALES REPRESENTATIVE Lumigan 0.01% drops active 1 drop into affected eye once a day Natalia Roche montelukast 10 mg tablet active TAKE 1 TABLET BY MOUTH DAILY NEEDED Natalia Roche nebivolol 10 mg tablet completed TAKE 1 TABLET BY MOUTH EVERY DAY - Dominique Agudelomiglia SIGNS AND DISPLAYS SALES REPRESENTATIVE pantoprazole 40 mg tablet,delayed release (DR/EC) active TAKE ONE TABLET BY MOUTH EVERY DAY. FOLLOW UP APPOINTMENT REQUIRED FOR ADDITIONAL REFILLS. Natalia Roche tamsulosin 0.4 mg capsule active Take 1 capsule by mouth once daily Natlaia Roche torsemide 20 mg tablet active 1 tablet by mouth once a day Nataila Roche tramadol 50 mg tablet active Take 1 tablet by mouth twice a day as needed for pain Natalia Roche SOCIAL HISTORY Date Observation Value Provider drug use no Dominique ferreira [facility] personal history of marijuana use no Dominique Crawford [facility] alcohol use, type beer Dominique ash [facility] alcohol use, average drinks per day 3 /d Dominique Crawford [facility] alcohol use yes Dominique ferreira [facility] smoking status Never smoker Dominique duff [facility] Surgical History of Back Surgery Surgical History of Back Surgery Sumeet Rosen MD INSURANCE PROVIDERS Payer name Policy type / Coverage type [place] red green party ID ADRIANO AC [id number] [place] MEDICARE Medicare [id number] ADVANCE DIRECTIVES Name Date DISCUSSED - NO DECISION MADE TREATMENT PLAN Date Name Performer Cardiology Dominiqueleila millan [facility] Cardiology:BP above goal will increase coreg to 12.5 mg BID T he following medications were removed from the medication list: Carvedilol 12.5 Mg Tablet (Carvedilol) ..... Take 1 tablet by mouth twice daily Nebivolol 10 Mg Tablet (Nebivolol) ..... Take 1 tablet by mouth every day Losartan 50 Mg Tablet (Losartan) ..... Take 1 tablet twice daily His updated medication list for this problem includes: Carvedilol 12.5 Mg Tablet (Carvedilol) ..... Take 1 tablet by mouth twice a day Torsemide 20 Mg Tablet (Torsemide) ..... 1 tablet by mouth once a day Dominique Crawford [facility] Cardiology:He had PE T/CT stress that was reviewed with Dr. Rosen and felt to be negative for ischemia. H e remains asymptomatic and EF of 60% W ill continue medical therapy T he following medications were removed from the medication list: Carvedilol 12.5 Mg Tablet (Carvedilol) ..... Take 1 tablet by mouth twice daily Nebivolol 10 Mg Tablet (Nebivolol) ..... Take 1 tablet by mouth every day His updated medication list for this problem includes: Carvedilol 12.5 Mg Tablet (Carvedilol) ..... Take 1 tablet by mouth twice a day Dominique NOVA Cardiology Sumeet Rosen MD Cardiology Sumeet Rosen MD Cardiology Sumeet Rosen MD Date Name RPM (remote patient monitoring) Complete Echo myocardial blood yesi w (PET) Stress Cardiac PET-C T
--- OUTSIDE RECORDS SUMMARY | 2024-08-19 12:15 | XMS_ITS | Continuity of Care Document ---
Author Name [facility] Organization [facility] Care Team Providers Care Russian Teacher Name Role Phone [facility] Unavailable Unavailable Problems Combined list of problems from Department of Defense and Veterans Affairs facilities. It does not include entries that were removed or entered in error. Problem Status Onset Date Problem Type Date of Resolution Comments Source visit for: issue repeat prescription Inactive Condition [facility] visit for: administrative purpose Inactive Condition [facility] hypertension systemic Active Condition Pt needs med refill. BPs well controlled now DoD proteinuria Active Condition Will rec ehck labs and screen for DM. HTN is well controlled now. Asked pt to avoid NSAIDS. Pt needs a new consult to Nephrology. DoD visit for: screening exam malignant neoplasm prostate Inactive Condition ДМИТРИЙ normal DoD visit for: issue repeat prescription for medication Inactive Condition [facility] Administrative Evaluation Services Inactive Condition DoD seborrheic keratosis Active Condition Liquid N2. 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 Will cont with current mgmt. [facility] backache Inactive Condition NOrmal exa m .No red flags. No radiculopathy. Will get baseline films for pt anxiety. [facility] upper respiratory infection Inactive Condition chloraseptic spray, losengers, cont entex, cont motrin, gargles. RTC if worsens or fails to resolve. [facility] closed fracture 5th finger proximal phalanx right hand Active Condition [facility] acquired deformity of finger Active Condition DoD Medications Combined list of outpatient medications from Department of Defense and Veterans Affairs facilities.Medications provided include 1) outpatient medications from the last 15 months, and 2) patient-reported medications. Medication Details Route Status Patient Instructions Prescription Expires Prescription Number Last Dispense Date Ordering Provider Order Date Order Qty Source ALLOPURINOL (ALLOPURINO L), 100MG, TABLET, ORAL, [facility], 1000 ea. BOTTLE Active [id number] 4 2023 360 Pharmac y Data Transac tion Service Facilit y ALLOPURINOL (ALLOPURINO L), 100MG, TABLET, ORAL, [facility], 1000 ea. BOTTLE Active [id number] 4 2023 360 Pharmac y Data Transac tion Service Facilit y CARVEDILOL (carvedilol ), 12.5 MG, TABLET, ORAL, [employer] 500 ea. BOTTLE Active [id number] 4 2023 180 Pharmac y Data Transac tion Service Facilit y CARVEDILOL (CARVEDILOL ), 3.125MG, TABLET, ORAL, [employer], 500 ea. BOTTLE Cancele d [id number] : 2023 0 Pharmac y Data Transac tion Service Facilit y CYCLOSPORIN E (cyclospori ne), 0.05 %, DROPERETTE, OPHTHALMIC, [employer] 30 ea. VIAL Active [id number] 4 2023 180 Pharmac y Data Transac tion Service Facilit y HYDROXYZINE HCL (hydroxyzin e HCl), 25 MG, TABLET, ORAL, [employer], 500 ea. BOTTLE Active [id number] 4 2023 12 Pharmac y Data Transac tion Service Facilit y LOSARTAN POTASSIUM (LOSARTAN POTASSIUM), 50 MG, TABLET, ORAL, AUROBINDO PHARM, 1000 ea. BOTTLE Cancele d [id number] : 2023 0 Pharmac y Data Transac tion Service Facilit y LOSARTAN POTASSIUM (losartan potassium), 50 MG, TABLET, ORAL, [employer] PHARMACE, 90 ea. BOTTLE Cancele d [id number] : 2023 0 Pharmac y Data Transac tion Service Facilit y LOSARTAN POTASSIUM (losartan potassium), 50 MG, TABLET, ORAL, [employer]LC[employer] PHARMACE, 90 ea. BOTTLE Active [id number] 4 2023 90 Pharmac y Data Transac tion Service Facilit y LUMIGAN (BIMATOPROS T), 0.01 %, DROPS, OPHTHALMIC, [employer] 2.5 ml DROP BTL Active [id number] 11/30/19 2 4 2023 7.5 Pharmac y Data Transac tion Service Facilit y MUPIROCIN (MUPIROCIN) , 2%, OINT.(GM), TOPICAL, [employer] 22 g TUBE Cancele d [id number] : 2023 0 Pharmac y Data Transac tion Service Facilit y NEBIVOLOL HCL (nebivolol HCl), 10 MG, TABLET, ORAL, [facility], 30 ea. BOTTLE Cancele d [id number] : 2023 0 Pharmac y Data Transac tion Service Facilit y NEBIVOLOL HCL (nebivolol HCl), 10 MG, TABLET, ORAL, [facility], 30 ea. BOTTLE Cancele d [id number] : 2023 0 Pharmac y Data Transac tion Service Facilit y NEBIVOLOL HCL (nebivolol HCl), 10 MG, TABLET, ORAL, [facility], 30 ea. BOTTLE Cancele d [id number] : 2022 0 Pharmac y Data Transac tion Service Facilit y NEBIVOLOL HCL (nebivolol HCl), 10 MG, TABLET, ORAL, [facility], 30 ea. BOTTLE Active [id number] 4 2023 65 Pharmac y Data Transac tion Service Facilit y NEBIVOLOL HCL (nebivolol HCl), 10 MG, TABLET, ORAL, [facility], 30 ea. BOTTLE Active [id number] 4 2023 90 Pharmac y Data Transac tion Service Facilit y NEBIVOLOL HCL (nebivolol HCl), 10 MG, TABLET, ORAL, [facility], 90 ea. BOTTLE Cancele d [id number] : 2023 0 Pharmac y Data Transac tion Service Facilit y NEBIVOLOL HCL (nebivolol HCl), 10 MG, TABLET, ORAL, [facility], 90 ea. BOTTLE Active [id number] 4 2023 90 Pharmac y Data Transac tion Service Facilit y PREDNISONE (prednisone ), 20 MG, TABLET, ORAL, NOVITIUM/AN I PH, 500 ea. BOTTLE Active [id number] 4 2023 5 Pharmac y Data Transac tion Service Facilit y ROSUVASTATI N CALCIUM (rosuvastat in calcium), 40 MG, TABLET, ORAL, [employer] 30 ea. BOTTLE Cancele d [id number] : 2023 0 Pharmac y Data Transac tion Service Facilit y ROSUVASTATI N CALCIUM (rosuvastat in calcium), 40 MG, TABLET, ORAL, [employer] 30 ea. BOTTLE Active [id number] 4 2023 90 Pharmac y Data Transac tion Service Facilit y TAMSULOSIN HCL (TAMSULOSIN HCL), 0.4 MG, CAP.SR 24H, ORAL, ZYDUS PHARMACEU, 1000 ea. BOTTLE Cancele d [id number] : 2023 0 Pharmac y Data Transac tion Service Facilit y TAMSULOSIN HCL (TAMSULOSIN HCL), 0.4 MG, CAP.SR 24H, ORAL, ZYDUS PHARMACEU, 1000 ea. BOTTLE Active [id number] 4 2023 90 Pharmac y Data Transac tion Service Facilit y TAMSULOSIN HCL (TAMSULOSIN HCL), 0.4 MG, CAP.SR 24H, ORAL, ZYDUS PHARMACEU, 1000 ea. BOTTLE Cancele d [id number] : 2023 0 Pharmac y Data Transac tion Service Facilit y TORSEMIDE (torsemide) , 20 MG, TABLET, ORAL, [employer] 90 ea. BOTTLE Cancele d [id number] : 2023 0 Pharmac y Data Transac tion Service Facilit y TORSEMIDE (torsemide) , 20 MG, TABLET, ORAL, [employer] 90 ea. BOTTLE Active [id number] 2023 90 Pharmac y Data Transac tion Service Facilit y TORSEMIDE (TORSEMIDE) , 20MG, TABLET, ORAL, [employer], 100 ea. BOTTLE Active [id number] 4 2023 90 Pharmac y Data Transac tion Service Facilit y TRAMADOL HCL (tramadol HCl), 50 MG, TABLET, ORAL, AMNEAL PHARMACE, 500 ea. BOTTLE Active [id number] 2023 180 Pharmac y Data Transac tion Service Facilit y TRAMADOL HCL (tramadol HCl), 50 MG, TABLET, ORAL, AMNEAL PHARMACE, 500 ea. BOTTLE Active [id number] 4 2023 180 Pharmac y Data Transac tion Service Facilit y TRAMADOL HCL (tramadol HCl), 50 MG, TABLET, ORAL, AMNEAL PHARMACE, 500 ea. BOTTLE Cancele d [id number] : 2023 0 Pharmac y Data Transac tion Service Facilit y TRAMADOL HCL (tramadol HCl), 50 MG, TABLET, ORAL, AMNEAL PHARMACE, 500 ea. BOTTLE Cancele d [id number] : 2023 0 Pharmac y Data Transac tion Service Facilit y TRAMADOL HCL (tramadol HCl), 50 MG, TABLET, ORAL, AMNEAL PHARMACE, 500 ea. BOTTLE Active [id number] 4 2023 180 Pharmac y Data Transac tion Service Facilit y TRAMADOL HCL (tramadol HCl), 50 MG, TABLET, ORAL, AMNEAL PHARMACE, 500 ea. BOTTLE Active [id number] 4 2023 180 Pharmac y Data Transac tion Service Facilit y TRAMADOL HCL (tramadol HCl), 50 MG, TABLET, ORAL, AMNEAL PHARMACE, 500 ea. BOTTLE Active [id number] 4 2023 180 Pharmac y Data Transac tion Service Facilit y TRAMADOL HCL (tramadol HCl), 50 MG, TABLET, ORAL, AMNEAL PHARMACE, 500 ea. BOTTLE Active [id number] 4 2023 180 Pharmac y Data Transac tion Service Facilit y Allergies, Adverse Reactions, Alerts Combined list of allergies from Department of Defense and Veterans Affairs facilities. It does not include entries that were removed or entered in error. Substance Category Reaction Severity Reaction type Status Date Reported Comments Source NO OUTPUT FOR NCID [id number] Drug allergy (disorder) active 09/19/2006 [facility] Adin WALKER ([facility]) Immunizations Combined list of available immunizations from the Department of Defense and Veterans Affairs facilities. Immunization Series Date Given Administered By Site Reaction Lot Number CVX Code Drug Weight Inspector Status Comments Source COVID-19, mRNA, LNP-S, PF, 30 mcg/0.3 mL dose, cornell-sucrose 2021 Carmolex, [place] (PFR) Not Given COVID-19, mRNA, LNP-S, PF, 30 mcg/0.3 mL dose, cornell-sucr ose DoD influenza, high-dose, quadrivalent 2020 LIBBRA, () Not Given influenza , high-dose , quadrival ent DoD pneumococcal polysaccharid e PPV23 2017 ALUL, () Not Given pneumococ alberta polysacch aride PPV23 DoD Influenza, high dose seasonal 2016 ALUL, () Not Given Influenza , high dose seasonal DoD Influenza, high dose seasonal 2015 ALUL, () Not Given Influenza , high dose seasonal DoD Influenza, seasonal, injectable, preservative free 2013 ALUL, RUSHDI DO () Not Given Influenza , seasonal, injectabl e, preservat yolanda free DoD influenza virus vaccine, whole virus 1 2002 Unknown, Provider [id number] Sanofi Pasteur ([facility]) complet ed influenza virus vaccine, whole virus DoD tetanus and diphtheria toxoids, adsorbed, preservative free, for adult use (2 Lf of tetanus toxoid and 2 Lf of diphtheria toxoid) 1 1999 Unknown, Provider [id number] Sanofi Pasteur ([facility]) complet ed tetanus and diphtheri a toxoids, adsorbed, preservat yolanda free, for adult use (2 Lf of tetanus toxoid and 2 Lf of diphtheri a toxoid) DoD Encounters Combined list of: 1) Encounters from Department of Veterans Affairs facilities going backup to the last 18 months, not all VA inpatient encounters are included; 2) Encounters from the Department of Defense facilities going backup to 280 months. Location Location Details Encounter Type Encounter Number Reason For Visit Attending Provider ADM Date DC Date Status Disposition Source [address] [place] [address] Adin WALKER ([facility]Sco tt [facility] [place]) TELE CONSULT [id number] Rx Request ERIK VIZCARRA 01/[address] [place] [address] Adin WALKER ([facility])(S cott [facility] Tm [facility]) [address] [place] [address] Adin WALKER ([facility]Sco tt [facility] Tm Blue) TELE CONSULT [id number] med refill ERIK VIZCARRA 02/[address] [place] [address] Adin WALKER ([facility]S cott [facility] [place]) [address] [place] [address] Adin [facility]ALKER ([facility] [place]) OUTPATIENT [id number] Finger Pain KRISTIAN VEGA 03/17 Released w/o Limitations [address] [place] [address] Adin WALKER ([facility])(S cott [facility] [place]) [address] [place] [address] Adin WALKER ([facility] Tm Blue) OUTPATIENT [id number] check up MARTI SILVEIRA 04/01 Released w/o Limitations [address] [place] [address] Adin WALKER ([facility]S cott [facility] [address] [place] [address] Adin WALKER ([facility]Sco tt [facility] T[place] Blue) OUTPATIENT [id number] severe sore throat BANDAR TITUS 07/18 Released w/o Limitations [address] [place] [address] Adin WALKER ([facility]S cott [facility]) [address] [place] [address] Adin WALKER ([facility]Sco tt [facility] Tm Blue) OUTPATIENT [id number] skin discolo ration on rt thigh (progre ssively growing --size of a dime) SALUD BRICENO 09/06 Released w/o Limitations [address] [place] [address] Adin WALKER ([facility]S cott [facility]) [address] [place] [address] Adin WALKER ([facility]Sco tt [facility] Tm Blue) TELE CONSULT [id number] med refill DION VILLANUEVA 01/[address] [place] [address] Adin WALKER ([facility]S cott [facility] T[facility] Blue) [address] [place] [address] Adin WALKER ([facility]Sco tt [facility] Tm Blue) TELE CONSULT [id number] med refill DION VILLANUEVA 02/[address] [place] [address] Adin WALKER ([facility]S cott [facility] T[facility] Blue) [address] [place] [address] Adin WALKER ([facility]Sco [facility] Tm Blue) OUTPATIENT [id number] routine physica l JOMAR MARTINEZ E 02/21 Released w/o Limitations [address] [place] [address] dAin WALKER ([facility]S [facility] Tm Blue) [address] [place] [address] Adin [place] [facility] [place] [facility] Tm Blue) TELE CONSULT [id number] wt loss study? JOMAR MARTINEZ 07/[address] [place] [address] Adin WALKER [facility] [place] Tm Blue) [address] [place] [address] Adin [place]ALKER [facility] [place] [facility] Tm Blue) TELE CONSULT [id number] med renewal JOMAR MARTINEZ 09/[address] [place] [address] Adin [place]ALKER [facility] [place]ia [place]) [facility] Outpatient Encounter [id number] 04/06 [facility] Procedures Combined list of: 1) Procedures from Department of Veterans Affairs facilities going back up to thelast 18 months, not all [place] non-surgical procedures are included; 2) All procedures from the Department of Defense facilities. Procedure Procedure Type Code Date Perfomer Comments Hi chávez ARTHROSCOPY OF KNEE 08/01/1996 D oD OTHER LOCAL EXCISION OR DESTRUCTION OF LESION OF KNEE JOINT 08/01/1996 DoD EXCISION OF SEMILUNAR CARTILAGE OF KNEE 08/01/1996 [facility] Destruction Of Benign Lesion By Cryosurgery 09/06/2005 SALUD BRICENO DoD Social History Combined list of available smoking, tobacco, and other social history from Department of Defense and Veterans Affairs facilities. Social History Type Response Date Comment Hi chávez This section is an empty social history section. DoD
--- OUTSIDE RECORDS SUMMARY | 2024-08-19 12:15 | XMS_ITS | Clinical Summary ---
Author Organization [facility] Facility Address [address] [place] [id number] Care Team Providers Care Capital Markets Specialist Name Role Phone Nelia Naylor MD Primary Care Provider [phone] Allergies No known active allergies Medications allopurinol (ZYLOPRIM) 100 MG tablet Take 200 mg by mouth in the morning and 200 mg in the evening. 05/08/20 19 Active fluticasone (FLONASE) 50 MCG/ACT nasal spray 2 sprays if needed 05/08/20 19 Active gabapentin (NEURONTIN) 300 MG capsule Take 300 mg by mouth if needed Active montelukast (SINGULAIR) 10 MG tablet Take 1 tablet by mouth if needed 01/04/20 22 Active pantoprazole (PROTONIX) 40 MG EC tablet Take 40 mg by mouth 1 (one) time each day before breakfast 11/24/19 22 Active rosuvastatin (CRESTOR) 40 MG tablet Take 40 mg by mouth 1 (one) time each day 09/17/19 23 Active tadalafil (CIALIS) 5 MG tablet Take 1 tablet by mouth 1 (one) time each day Active traMADol (ULTRAM) 50 MG tablet Take 50 mg by mouth every 8 (eight) hours if needed 01/19/20 22 Active Multiple Vitamin (multivitamin) tablet Take 1 tablet by mouth 1 (one) time each day Active aspirin (ST DENA) 81 MG EC tablet Take 81 mg by mouth 1 (one) time each day Active tamsulosin (FLOMAX) 0.4 MG 24 hr capsule Take 1 capsule (0.4 mg total) by mouth 1 (one) time each day 90 capsule 3 11/30/19 24 025 Active torsemide (DEMADEX) 20 MG tablet Take 20 mg by mouth 1 (one) time each day if needed (for wt> 190 lb or leg selling) 04/11/20 24 Active DULoxetine (Cymbalta) [address] capsule Take 1 capsule (30 mg total) by mouth 1 (one) time each day Do not crush or chew. 30 capsule 11 04/11/20 24 025 Active carvedilol (COREG) 12.5 MG tablet Take 1 tablet (12.5 mg total) by mouth in the morning and 1 tablet (12.5 mg total) in the evening. Take with meals. 180 tablet 08/01/19 25 026 Active losartan (COZAAR) 50 MG tablet Take 2 tablets (100 mg total) by mouth 1 (one) time each day 180 tablet 3 08/12/19 25 026 Active losartan (COZAAR) 50 MG tablet Take 1 tablet (50 mg total) by mouth 1 (one) time each day 90 tablet 3 11/30/19 24 025 Discontinued carvedilol (COREG) 12.5 MG tablet Take 1 tablet (12.5 mg total) by mouth in the morning and 1 tablet (12.5 mg total) in the evening. Take with meals. 180 tablet 02/21/20 24 025 Discontinued Active Problems Problem Noted Date Diagnosed Date Hypertensive chronic kidney disease stage 3 09/08 Back pain 09/28/2023 Spinal stenosis 09/28/2023 Essential hypertension 05/15/2023 Cobalamin deficiency 12/20/2022 Anemia 11/15/2022 Hypercholesterolemia 12/16/2019 Encounters Date Type Department Care Team Description 08/13/2024 Documentation Only [facility], [address] [address] Zafar Chambers MD 08/12/2024 1:00 PM [facility] Office Visit [facility], [address] [phone] Zafar Chambers MD Hypertensive chronic kidney disease stage 3 (Primary Dx); Anemia, not otherwise specified; Essential hypertension; Hypercholesterolemia , not otherwise specified; Cobalamin deficiency 08/05/2024 Orders Only [facility], [facility] [address] [place] [address] [address] [place] [phone] Zafar Chambers MD 08/01/2024 Refill [facility], [facility] [address] [facility] [address] [place] [id number] Zafar Chambers MD 05/25/2024 Documentation Only [facility], [facility] [address] [place] [address] [address] [place] [phone] Zafar Chambers MD from Last 3 Months Immunizations Name Administration Dates Next Due Influenza (IM) Preservative Free 05/31/2021,04/09 Influenza Split High Dose Pr eservative Free IM 04/27/2019,05/04/2018,05/19/2017,05/12 Influenza, Unspecified 05/15/2023,2019,05/12/2013,06/26 Pneumococcal Conjugate 13-Valent 05/19/2017 Pneumococcal Polysaccharide 05/20/2018 Family History Medical History Relation Comments Cancer Father Hypertension Father Cancer Mother Cancer Sister Diabetes Sister Hypertension Sister Relation Status Comments Father Mother Sister Social History Tobacco Use Types Packs/Day Years Used Date Smoking Tobacco: Never Smokeless Tobacco: Never Tobacco Cessation:Counseling Given: Not Answered Alcohol Use Standard Drinks/Week Comments Yes 0 (1 standard drink = 0.6 oz pur e alcohol) Sex and Gender Information Value Date Recorded Sex Assigned at Not on file Legal Sex Male 12:33 PM EST Gender Identity Not on file Sexual Orientation Not on file Last Filed Vital Signs Vital Sign Reading Time Taken Comments Blood Pressure 160/80 08/12/2024 1:06 PM [facility] Pulse 73 08/12/2024 1:06 PM [facility] Temperature 36.9 C (98.4 F) 08/12/2024 1:06 PM [facility] Respiratory Rate 18 08/12/2024 1:06 PM [facility] Oxygen Saturation 94% 08/12/2024 1:06 PM [facility] Inhaled Oxygen Concentration - - Weight 84.8 kg (187 lb) 08/12/2024 1:06 PM [facility] Height 157.5 cm (5' 2 ) 08/12/2024 1:06 PM [facility] Body Mass Index 34.2 08/12/2024 1:06 PM [facility] Plan of Treatment Upcoming Encounters Date Type Department Care Team (Late st Contact Info) Description 12/09/2024 12:30 PM CDT Office Visit [facility], [facility] [address] [facility] [address] [place] [address] [place] [address] [address] [facility] [address] [place] [address] Health Maintenance Due Date Last Done Comments Colorectal Cancer Screening: Annual FOBT 2000 Colorectal Cancer Screening: Colonoscopy 2000 Colorectal Cancer Screening: Sigmoidoscopy 2000 Pneumococcal Vaccine: 65+ Years Completed 05/20/2018, 05/19/2017 Influenza Vaccine Completed 05/13/2024, , 05/31/2021, Additional history exists Hepatitis B Vaccine Aged Out No longe r eligible based on patient's age to complete this topic Procedures Procedure Name Priority Date/Time Associated Diagnosis Comments HEMOGLOBIN A1C Routine 08/05/2024 11:41 AM [facility] CBC AND DIFFERENTIAL Routine 08/05/2024 11:41 AM [facility] RENAL FUNCTION PANEL Routine 08/05/2024 11:41 AM [facility]ER IRON PANEL (FE, TIBC, TSAT) Routine 08/05/2024 11:41 AM [facility] IR[facility]ER from Last 3 Months Results * Iron Panel (Fe, TIBC, TSAT) (08/05/2024 11:41 AM [facility]ER) Iron, Total 60 50 - 180 mcg/dL See order comments TIBC 252 250 - 425 mcg/dL (calc) See order comments Iron Saturation (TSat) 24 20 - 48 % (calc) See order comments 08/05/2024 11:4 1 AM [facility] IR[facility]ER 08/05/2024 11:43 AM [facility] IR[facility] Narrative Resulting Agency Comment Performing Organization Information: Site ID: [id number] Name: [facility] Address: [address] [address] Director: Shaw Love MD us Kenyoned Candis Chambers MD LAB BLOOD ORDERABLES Final Res ult [facility] See order comments [place] [address] * (ABNORMAL) CBC and Differential (08/05/2024 11:41 AM [facility]ER) WBC 6.3 3.8 - 10.8 Thousand/ uL See order comments RBC 3.40(L) 4.20 - 5.80 Million/u L See order comments Hemoglobin 10.7(L) 13.2 - 17.1 g/dL See order comments Hematocrit 32.5(L) 38.5 - 50.0 % See order comments MCV 95.6 80.0 - 100.0 fL See order comments MCH 31.5 27.0 - 33.0 pg See order comments MCHC 32.9 32.0 - 36.0 g/dL See order comments Comment: For adults, a slight decrease in the calculated MCHC value (in the range of 30 to 32 g/dL) is most likely not clinically significant; however, it should be interpreted with caution in correlation with other red cell parameters and the patient's clinical condition. RDW 13.5 11.0 - 15.0 % See order comments Platelets 451(H) 140 - 400 Thousand/ uL See order comments MPV 9.3 7.5 - 12.5 fL See order comments Neutrophils Absolute 3,761 1,500 - 7,800 cells/uL See order comments Band Neutrophils Absolute, Manual Count CANCELED 0 - 750 cells/uL See order comments Comment:Result canceled by t he ancillary. Metamyelocytes Absolute CANCELED 0 cells/uL See order comments Comment:Result canceled by t he ancillary. Absolute Myelocytes CANCELED 0 cells/uL See order comments Comment:Result canceled by t he ancillary. Absolute Promyelocytes CANCELED 0 cells/uL See order comments Comment:Result canceled by t he ancillary. Lymphocytes Absolute 1,739 850 - 3,900 cells/uL See order comments Monocytes Absolute 605 200 - 950 cells/uL See order comments Eosinophils Absolute 164 15 - 500 cells/uL See order comments Basophils Absolute 32 0 - 200 cells/uL See order comments Blasts Absolute CANCELED 0 cells/uL See order comments Comment:Result canceled by t he ancillary. NRBC Absolute CANCELED 0 cells/uL See order comments Comment:Result canceled by t he ancillary. Neutrophils Relative 59.7 % See order comments Bands Absolute CANCELED % See o rder comments Comment:Result canceled by t he ancillary. Metamyelocytes Percent CANCELED % See order comments Comment:Result canceled by t he ancillary. Myelocytes Relative CANCELED % See order comments Comment:Result canceled by t he ancillary. Promyelocytes Relative CANCELED % See order comments Comment:Result canceled by t he ancillary. Lymphocytes 27.6 % See orde r comments Variant lymphocytes/100 WBC (Bld) CANCELED 0 - 10 % See order comments Comment:Result canceled by t he ancillary. Monocytes 9.6 % See order comments Eosinophils 2.6 % See orde r comments Basophils Relative 0.5 % S ee order comments Blasts CANCELED % See order comments Comment:Result canceled by t he ancillary. nRBC CANCELED 0 /100 WBC See order comments Comment:Result canceled by t he ancillary. Comment(s) CANCELED See order comments Comment:Result canceled by t he ancillary. 08/05/2024 11:4 1 AM [facility] IR[facility]ER 08/05/2024 11:43 AM [facility] IR[facility]ER Narrative Resulting Agency Comment Performing Organization Information: Site ID: [id number] Name: [facility] Address: [address] [place] [address] Director: Shaw Love MD us Kenyoned Candis Chambers MD LAB BLOOD ORDERABLES Final Res ult [address] [address] See order comments [place] [address] * (ABNORMAL) Hemoglobin A1c (08/05/2024 11:41 AM [facility]) Hemoglobin A1C 5.7(H) <5.7 % of total Hgb See order comments Comment: For someone without known diabetes, a hemoglobin A1c value between 5.7% and 6.4% is consistent with prediabetes and should be confirmed with a follow-up test. For someone with known diabetes, a value <7% indicates that their diabetes is well controlled. A1c targets should be individualized based on duration of diabetes, age, comorbid conditions, and other considerations. This assay result is consistent with an increased risk of diabetes. Currently, no consensus exists regarding use of hemoglobin A1c for diagnosis of diabetes for children. 08/05/2024 11:4 1 AM [facility] IR[facility]ER 08/05/2024 11:43 AM [facility] IR[facility] Narrative Resulting Agency Comment Performing Organization Information: Site ID: [id number] Name: [facility] Address: [address] [place] [address] Director: Shaw Love us Sameed Candis Chambers MD LAB BLOOD ORDERABLES Final Res ult [facility] See order comments [place] [address] * (ABNORMAL) Renal Function Panel (08/05/2024 11:41 AM [facility] IR[facility]ER) Glucose 109(H) 65 - 99 mg/dL See order comments Comment: Fasting reference interval For someone without known diabetes, a glucose value between 100 and 125 mg/dL is consistent with prediabetes and should be confirmed with a follow-up test. BUN 26(H) 7 - 25 mg/dL See order comments Creatinine 1.57(H) 0.70 - 1.28 mg/dL See order comments eGFR CKD-EPI CR 2020 46(L) > OR = 60 mL/min/1.7 3m2 See order comments BUN/Creatinine Ratio 17 6 - 22 (calc) See order comments Sodium 138 135 - 146 mmol/L See order comments Potassium 4.7 3.5 - 5.3 mmol/L See order comments Chloride 99 98 - 110 mmol/L See order comments Bicarbonate (CO2) 33(H) 20 - 32 mmol/L See order comments Calcium 9.6 8.6 - 10.3 mg/dL See order comments Phosphorus 4.0 2.1 - 4.3 mg/dL See order comments Albumin 4.3 3.6 - 5.1 g/dL See order comments 08/05/2024 11:4 1 AM [facility] IR[facility]ER 08/05/2024 11:43 AM [facility] Narrative Resulting Agency Comment Performing Organization Information: Site ID: [id number] Name: [facility] Address: [address] [address] Director: Shaw Love MD us Sameed Candis Chambers MD LAB BLOOD ORDERABLES Final Res ult [facility] See order comments [place] [address] from Last 3 Months Insurance MEDICARE [facility] Advance Directives Documents on File Type Date Recorded 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
--- OUTSIDE RECORDS SUMMARY | 2024-08-19 12:16 | XMS_ITS | Data Portability ---
Author Organization [place] - [facility], Main Office Address [address] [place] [address] Care Team Providers Care Autocad Name Role Phone MITCHEL NAYLOR Primary Care Provider MITCHEL NAYLOR Referring Provider Assessment No assessment recorded. Plan of Treatment Reminders Order Date Submit Date Provider Last Modified By Organization Details Last Modified Time Details Appointments Follow Up 30 2024 10:30A M Desirae French NP Not available Not available Not available Lab PSA, serum or plasma 2023 [facility] (Lab), [address] [place], [address], 05/13/2024 21:01:56 Referral dermatolo gist referral - Please call patient to schedule an appointme nt. Thank you. 2023 024 [email or web address] Sri Ying MD (Dermatology) , [address], [address], [place], [address], 02/27/2024 08:33:10 Procedures None recorded. Surgeries None recorded. Imaging None recorded. Medication Orders prednison e 20 mg tablet 2023 [facility][id number], [address], [id number], 01/30/2024 15:04:48 triamcino lone acetonide 0.1 % topical cream 2023 024 [facility][id number], [address] [place] [address], [id number], 01/30/2024 15:04:46 hydroxyzi ne pamoate 25 mg capsule 2023 024 [facility] #[id number], [address], [id number], 01/30/2024 15:05:01 gabapenti n 300 mg capsule 2023 024 [facility] #[id number], [address], [id number], 02/26/2024 15:15:04 Patient TargetsNo targets recorded. Patient Instructions Encounter Date Encounter Id Patient Instructions Last Modified By Organization Details Last Modified Time 05/13/2024 [id number] dementia rating scale-2* FATMTAA Not available 05/13/2024 13:00:04 multi-dimensiona l health assessment questionnaire* FATMATA Not available 05/13/2024 12:59:51 care plan* FATMATA Not available 05/13 13:00:08 advance care planning: care instructions [email or web address] Not available 05/13/2024 11:50:15 advance directiv es: care instructions [email or web address] Not available 05/13/2024 11:50:15 [place] Advance Directives Not available 05/13/2024 11:50:15 Personalized a lth Plan and Screening Recommendations Advance Directives - Do you have one? Advance Directives - Do we have your advance directive on file in your health record? Primary Prevention/Interven tion (prevents or decreases the chance of common diseases from occurring) Smoking Risk: Alcohol Misuse Screening: Weight: Physical activity: Nutrition: Fall Risk (screened today): Vaccines Pneumococcal: Influenza: Chronic Disease Risks Stroke: I have no recommendations Active diagnosis, Continue current treatment plan Heart Attack: I have no recommendations Act yolanda diagnosis, Continue current treatment plan Clogging of the Arteries: I have no recommendations Act yolanda diagnosis, Continue current treatment plan Diabetes: Active diagnosis, Continue current treatment plan Secondary Prevention/Interven tion (detects treatable diseases before they may cause symptoms, disability, or ) Prostate Cancer Screening: Colon Cancer Screening: Date Screening Last Performed: Eye Disease Screening: Dementia Risk: Depression Screening: Active diagnosis, Continue current treatment plan [email or web address] Not available 05/13/2024 11:30:11 Reason for Referral Welfare Officer Referral for P ruritic rash rash to all extremities [email or web address] Please call patient to schedule an appointment. Thank you. Referring Physician: Joseph Emmanuel, [facility] Medicine, Encounter Date: 01/30/2024 Results Created Date Observation Date Name Description Value Unit Range Abnormal Flag Note LastModifiedBy Organization Detail LastModifiedTime 06/18/20 24 06/18/2024 cardi ac stres s test No observ ation record ed. [facility] [address], [place], [address], 06/19/2024 16:48:43 08/01/19 25 07/30/2024 , echoc ardio gram No observ ation record ed. [email or web address] [facility] [address], [place], [address], 08/01/2024 17:09:02 Result Notes None recorded. Problems Name Problem SNOMED Code Status Onset Date Resolution Date Notes Provider Name and Address Organization Details Recorded Time Tailor's bunion of right foot 5936949652579 109 Active 2019 Not Available [facility] 3 18:12:03 Bilateral carpal tunnel syndrome 1344673684193 9101 Active 2019 Not Available [facility] 3 18:12:03 Hyperchole sterolemia 09553423 Active 2019 Not Available [facility] 3 18:12:03 Numbness of hand 214044971 Active 2018 Not Available [facility] 3 18:12:03 Arthritis 7965752 Active 2019 Not Available [facility] 3 18:12:03 Hypertensi ve disorder 58040310 Active 2019 Not Available [facility] 3 18:12:03 Disorder of rotator cuff 956727252 Active Not Available [facility] 3 18:12:03 Foot pain 80576852 Active 2019 Not Available [facility] 3 18:12:03 Hand pain 02764519 Active 2018 Not Available [facility] 3 18:12:03 Disorder of bursa of shoulder region 78424352 Active Not Available [facility] 3 18:12:03 Carpal tunnel syndrome 82109226 Active 2018 Not Available [facility] 3 18:12:03 Gout 60093118 Active 2019 Not Available [facility] 3 18:12:03 Degenerati on of lumbar interverte bral disc 50535232 Active 2022 Not Available [facility] 3 18:12:03 Hyperlipid emia 59176555 Active 2022 Not Available [facility] 3 18:12:03 Prostate specific antigen above reference range 004967236 Active 2022 Not Available [facility] 3 18:12:03 Serum creatinine above reference range 716126191 Active 2022 Not Available [facility] 3 18:12:03 Normocytic normochrom ic anemia 10237270 Active 2022 Not Available [facility] 3 18:12:03 Anemia 379289219 Active 2022 Not Available [facility] 3 18:12:03 Degenerati on of interverte bral disc 62349256 Active 2022 Not Available [facility] 3 18:12:03 Cobalamin deficiency 950133478 Active 2022 Not Available [facility] 3 18:12:03 Herpes simplex 48884063 Active 2022 Not Available [facility] 3 18:12:03 Essential hypertensi on 03982683 Active 2022 Mitchel Naylor MD [address] [facility], [address] [place] [address], [place], [address] , [facility] 3 12:59:30 Pain of left hip joint 8455951511954 00 Active 2023 Mitchel Naylor MD [address], [address], [place], [address] , [facility] 4 12:33:48 Pruritic rash 69035018 Active 2023 [facility] [address], [address], [place], [address] , [facility] 4 14:57:54 Chronic rhinitis 06975583 Active 2024 ALNDRY [facility] [address] [facility] [facility] [address], [place], [address] , [facility] 5 09:56:02 Problem Notes None recorded. Procedures Surgical History Date Name Laterality Status Provider Name and Address Organization Details Recorded Time Medicare Wellness CPT Code, subsequent completed Hayden Tran RN [place] [facility] 05/13/2024 11:30:11 Hernia Surgery completed Not Available [facility] 09/07/2022 16:25:53 Imaging Results Imaging Date Name Status LastModified by Organization Details LastModified Time 06/18/2024 cardiac stress test completed [email or web address] [facility] [address], [place], [address], 06/19/2024 16:48:43 07/30/2024 US, echocardiogram completed [email or web address] [facility] [address], [place], [address], 08/01/2024 17:09:02 Procedure Notes None recorded. Medical Equipment None Reported. Allergies No known drug allergies Medications Name Sig Start Date Stop Date Status Note LastModified by Organization Details LastModified Time losartan 50 mg tablet 1 po qday active Not Available Not Available Not Available cyclobenzap rine 10 mg tablet active Not Available Not Available Not Available amoxicillin 500 mg capsule 05/06 completed Not Available Not Available Not Available anastrozole 1 mg tablet 05/08 completed Not Available Not Available Not Available carvedilol 12.5 mg tablet active Not Available Not Available Not Available torsemide 20 mg tablet 1 po qday active Not Available Not Available No t Available valacyclovi r 1 gram tablet TAKE 2 TABLETS BY MOUTH EVERY 12 HOURS FOR 1 DAY active Not Available Not Available No t Available hydrocodone 5 mg-acetamin ophen 325 mg tablet TAKE ONE TABLET BY MOUTH EVERY 4 TO 6 HOURS NEEDED FOR PAIN 07/14 completed Not Available Not Available Not Available diltiazem CD 240 mg capsule,ext ended release 24 hr TAKE 1 CAPSULE TWICE A DAY 11/12 completed Not Available Not Available Not Available prednisone 20 mg tablet TAKE 2 TABLETS BY MOUTH EVERY MORNING WITH FOOD FOR 5 DAYS active Not Available Not Available No t Available clobetasol 0.05 % topical cream active Not Available Not Available Not Available diltiazem ER 240 mg capsule,24 hr,extended release 1 po bid 11/12 completed Not Available Not Available Not Available diltiazem ER 360 mg capsule,24 hr,extended release 1 po bid 09/30 completed Not Available Not Available Not Available allopurinol 100 mg tablet 2 po bid active Not Available Not Available Not Available tramadol 50 mg tablet TAKE 1-2 TABLETS BY MOUTH EVERY 8 HOURS NEEDED FOR PAIN FOR 30 DAYS 2024 active Not Available Not Available Not Avai lable triamcinolo ne acetonide 0.1 % topical cream APPLY THIN LAYER TOPICALLY TO THE AFFECTED AREA TWICE DAILY active Not Available Not Available No t Available carvedilol 3.125 mg tablet active Not Available Not Available Not Available lorazepam 0.5 mg tablet active Not Available Not Available Not Available tamsulosin 0.4 mg capsule 1 po qday active Not Available Not Available No t Available Kenalog 10 mg/mL suspension for injection In office injection administe red by the provider 11/23 completed [facility]: 0003- 0494- 20 Not Available Not Available Not Available hydrocodone 7.5 mg-acetamin ophen 325 mg tablet TAKE 1 TABLET BY MOUTH EVERY 4 HOURS NEEDED FOR PAIN active Not Available Not Available No t Available cephalexin 500 mg capsule TAKE 1 CAPSULE BY MOUTH EVERY 6 HOURS 08/16 completed Not Available Not Available Not Available pantoprazol e 40 mg tablet,rick yed release TAKE 1 TABLET DAILY active Not Available Not Available No t Available erythromyci n 5 mg/gram (0.5 %) eye ointment KEYA A SMALL AMOUNT INTO OU QHS UTD active Not Available Not Available No t Available tacrolimus 0.1 % topical ointment active Not Available Not Available Not Available triamcinolo ne acetonide 0.1 % topical ointment APPLY TOPICALLY TO THE AFFECTED AREA EVERY 12 HOURS NEEDED active Not Available Not Available No t Available fluorometho lone 0.1 % eye drops,suspe nsion 05/08 completed Not Available Not Available Not Available urea 10 % topical cream Apply thin layer to affected areas BID active Not Available Not Available No t Available gabapentin 300 mg capsule TAKE 1 CAPSULE BY MOUTH EVERY NIGHT AT BEDTIME NEEDED active Not Available Not Available No t Available Advil 200 mg tablet Take 4 tablets 3 times a day by oral route as needed. 11/12 completed Not Available Not Available Not Available omeprazole 20 mg capsule,del ayed release Take 1 capsule every day by oral route as needed. 11/23 completed Not Available Not Available Not Available montelukast 10 mg tablet Take 1 tablet every day by oral route. 2024 active Not Available Not Available Not Avai lable hydroxyzine HCl 25 mg tablet TAKE 1 TABLET BY MOUTH EVERY 6 HOURS NEEDED active Not Available Not Available No t Available acyclovir 200 mg capsule Take 4 capsules every 4 hours by oral route. 11/23 completed Not Available Not Available Not Available mupirocin 2 % topical ointment APPLY TOPCIALLY TO NOSTRILS TWICE DAILY FOR 5 DAYS PRIOR TO SURGERY active Not Available Not Available No t Available levofloxaci n 500 mg tablet 05/06 completed Not Available Not Available Not Available colchicine 0.6 mg tablet 2 po x 1 then 1 po 1 hour later 11/15 completed Not Available Not Available Not Available doxycycline hyclate 100 mg tablet active Not Available Not Available No t Available diazepam 5 mg tablet active Not Available Not Available No t Available hydroxyzine pamoate 25 mg capsule TAKE 1 CAPSULE BY MOUTH FOUR TIMES DAILY NEEDED active Not Available Not Available No t Available Pneumovax-2 3 25 mcg/0.5 mL injection syringe active Not Available Not Available Not Available cyclosporin e 0.05 % eye drops in a dropperette INSTILL 1 DROP IN BOTH EYES TWICE DAILY DIRECTED active Not Available Not Available No t Available olmesartan 40 mg-hydrochl orothiazide 25 mg tablet 1 po qday 11/12 completed /2 po qday MK Not Available Not Available Not Available rosuvastati n 20 mg tablet 1 po qday active Not Available Not Available No t Available rosuvastati n 40 mg tablet TAKE 1 TABLET BY MOUTH EVERY NIGHT AT BEDTIME active Not Available Not Available No t Available tadalafil 5 mg tablet TAKE 1 TABLET BY MOUTH ONCE DAILY active Not Available Not Available No t Available duloxetine 30 mg capsule,del ayed release active Not Available Not Available Not Available Zylet 0.3 %-0.5 % eye drops,suspe nsion active Not Available Not Available Not Available lidocaine (PF) 10 mg/mL (1 %) injection solution In office injection administe red by the provider 11/23 completed [facility]: 0409- 4276- 17 Not Available Not Available Not Available nebivolol 10 mg tablet TAKE 1 TABLET BY MOUTH EVERY DAY active Not Available Not Available No t Available Lumigan 0.01 % eye drops INSTILL 1 DROP IN BOTH EYES AT BEDTIME DIRECTED active Not Available Not Available No t Available Antiseptic Skin Cleanser (chlorhexid ine) 4 % liquid active Not Available Not Available Not Available Allergy Relief (fluticason e) 50 mcg/actuati on nasal spray,suspe nsion Marana 2 sprays every day by intranasa l route. 2018 active Not Available Not Available Not Avai lable Xiidra 5 % eye drops in a dropperette active Not Available Not Available Not Available Fluzone High-Dose 1921-0210 (PF) 180 mcg/0.5 mL intramuscul ar syringe 06/20 completed Not Available Not Available Not Available Fluzone High-Dose (PF) 180 mcg/0.5 mL intramuscul ar syringe ADM 0.5ML IM UTD 09/16 completed Not Available Not Available Not Available tramadol 100 mg tablet Take 1 tablet every 4 hours by oral route as needed. 08/27 completed Not Available Not Available Not Available Vitals Date Recorded Body height Provider Name an d Address Organization Details Last Updated DateTime 01/10/2024 162.56 cm Salma Villaseñor RN [place] - [facility] [employer] 01/10/2024 17:07:25 Date Recorded Body height Body mass index (BMI) Body weight Body temperature Heart rate Oxygen saturation Oxygen saturation in Arterial blood by Pulse oximetry Systolic blood pressure Diastolic blood pressure Provider Name and Address Organization Details Last Updated DateTime 4 162.56 cm 32.1 kg/m2 28547.7 7 g 99.4 [degF] 91 /min 97 % 97 % 180 mm[Hg] 94 mm[Hg] Kimberli Coffman RN [facility] 4 14:49:54 Date Recorded Body height Body mass index (BMI) Body weight Body temperature Heart rate Oxygen saturation Oxygen saturation in Arterial blood by Pulse oximetry Systolic blood pressure Diastolic blood pressure Provider Name and Address Organization Details Last Updated DateTime 4 162.56 cm 32.1 kg/m2 56891.7 7 g 99 [degF] 110 /min 96 % 96 % 188 mm[Hg] 102 mm[Hg] Hayden Tran RN [facility] 4 15:04:12 Date Recorded Body height Body mass index (BMI) Body weight Body temperature Heart rate Oxygen saturation Oxygen saturation in Arterial blood by Pulse oximetry Systolic blood pressure Diastolic blood pressure Provider Name and Address Organization Details Last Updated DateTime 4 162.56 cm 32.6 kg/m2 49858.5 5 g 98.4 [degF] 81 /min 93 % 93 % 198 mm[Hg] 102 mm[Hg] Hayden Tran RN [facility] 4 16:57:03 Date Recorded Systolic blood pressure Diastolic blood pressure Provider Name and Address Organization Details Last Updated DateTime 05/01/2024 162 mm[Hg] 78 mm[Hg] SALAZAR Barnett [address] [facility], [address], [place], [address], [facility] 05/01/2024 17:15:48 Date Recorded Body height Body mass index (BMI) Body weight Body temperature Heart rate Oxygen saturation Oxygen saturation in Arterial blood by Pulse oximetry Systolic blood pressure Diastolic blood pressure Provider Name and Address Organization Details Last Updated DateTime 4 162.56 cm 31.8 kg/m2 63277.5 9 g 98.2 [degF] 77 /min 97 % 97 % 162 mm[Hg] 80 mm[Hg] Hayden Tran RN [place] - [facility] 4 11:33:39 Social History Question Answer Notes LastModified by Organizat ion Details LastModified Time Tobacco Smoking Status Never Smoker Not Available [facility] 09/07/2022 16:25:47 Do You Have An Advance Directive? Yes [id number] Information not available 09/07/2022 What Is Your Level Of Alcohol Consumption? Occasional [id number] Information not available 09/07/2022 Are You Blind Or Do You Have Difficulty Seeing? No [id number] Information not available 09/07/2022 What Is Your Level Of Caffeine Consumption? Moderate [email or web address] Information not available 09/16/2022 In The 14 Days Before Symptom Onset, Have You Had Close Contact With A Laboratory-confirm ed COVID-19 While That Case Was Ill? No [id number] Information not available 09/07/2022 In The 14 Days Before Symptom Onset, Have You Had Close Contact With A Person Who Is Under Investigation For COVID-19 While That Person Was Ill? No MIGRATION.[id number] 0697 Information not available 09/07/2022 Are You Deaf Or Do You Have Serious Difficulty Hearing? Yes MIGRATION.[id number] 0386 Information not available 09/07/2022 What Type Of Diet Are You Following? REGULAR MIGRATION.[id number] 0044 Information not available 09/07/2022 Do You Have A Medical Power Of Museum Archivist? Yes MIGRATION.[id number] 0861 Information not available 09/07/2022 What Was The Date Of Your Most Recent Tobacco Screening? 12/29/2020 MIGRATION.[id number] 5858 Information not available 09/07/2022 Have You Ever Been Counseled For Unhealthy Alcohol Use? No [email or web address] Information not available 09/16/2022 Do You Use Any Illicit Or Recreational Drugs? No [email or web address] Information not available 09/16/2022 Has Tobacco Cessation Counseling Been Provided? No [email or web address] Information not available 09/16/2022 Have You Recently Traveled Abroad? No MIGRATION.[id number] 4245 Information not available 09/07/2022 Do You Have Any Dietary Restrictions? No MIGRATION.062868 4049 Information not available 09/07/2022 Do You Or Have You Ever Used Any Other Forms Of Tobacco Or Nicotine? No [email or web address] Information not available 09/16/2022 Sex: Unknown Functional Status Question Answer Note LastModified by Organizat Site9 Details LastModified Time Do you have difficulty walking or climbing stairs? Yes [id number] 026 Information not available 09/07/2022 Do you have transportation difficulties? No MIGRATION.[id number] 026 Information not available 09/07/2022 Are you able to walk? YESWOREST MIGRATION.[id number] 026 Information not available 09/07/2022 Do you have difficulty doing errands alone? No MIGRATION.[id number] 026 Information not available 09/07/2022 Are you able to care for yourself? Yes MIGRATION.[id number] 026 Information not available 09/07/2022 Do you have difficulty dressing or bathing? No MIGRATION.[id number] 026 Information not available 09/07/2022 What is your exercise level? None MIGRATION.[id number] 026 Information not available 09/07/2022 Mental Status Question Answer Note LastModified by Organizat Site9 Details LastModified Time Do you have difficulty concentrating, remembering or making decisions? No [id number].[id number] 6 Information not available 09/07/2022 Family History Relationship Description Onset Age of this Age Resolved Age Notes LastModified by Organization Details LastModified Time Father Hypertensive disorder [id number] Not available 09/07/2022 16:25:53 Notes:cancer - mother & fath er Medical History Condition Response ARTHRITIS Y HYPERTENSION Y Immunizations Vaccine Type Date Status Note Provider Nam e and Address Organization Details Recorded Time Influenza, high-dose, quadrivalent, PF 05/15/2023 completed Mitchel Naylor MD [address], [place] [address], [place], [address], [facility] 05/15/2023 13:09:58 Influenza, high-dose, trivalent, PF 05/13/2024 completed SALAZAR Barnett [address], [facility] [address], [place], [address], [facility] 05/13/2024 16:34:04 Influenza, high-dose, quadrivalent, PF 04/10/2020 completed Not Available [facility] 18:12:04 Past Encounters Encounter ID Performer Location Encounter Start Date Encounter Closed Date Diagnosis/Indication Diagnosis SNOMED-CT Code Diagnosis ICD10 Code Diagnosis Note [id number] [facility] [place] [address] [place] [address] 12/09/2020 00:00:00 01/05/2021 21:48:18 [id number] [facility] [address] [facility] [address] [place] [address] 12/29/2020 00:00:00 12/29/2020 15:08:20 [id number] [facility] [place] [address] [place] [address] 01/01/2021 00:00:00 01/01/2021 17:33:08 [id number] [facility] [place] [address] [place] [address] 04/16/2021 00:00:00 04/16/2021 20:37:30 [id number] [facility] [place] [address] [place] [address] 09/14/2021 00:00:00 09/14/2021 19:43:17 [id number] [facility] [place] [address] [place] [address] 11/23/2021 00:00:00 11/23/2021 08:57:21 [id number] [facility] [place] [address] [place] [address] 12/27/2021 00:00:00 12/27/2021 12:41:49 [id number] [facility] [place] [address] [place] [address] 01/11/2022 00:00:00 01/19/2022 13:20:54 [id number] [facility] [place] [address] [place] [address] 05/16/2022 00:00:00 06/08/2022 08:42:20 [id number] [facility] [address] [facility] [address] [place] [address] 08/16/2022 00:00:00 09/04/2022 16:05:40 [id number] DELIA Gusman [facility] [address] [facility] [address] [place] [address] 09/16/2022 14:40:59 09/16/2022 15:22:59 Hyperlipidemia 20561982 E78.5 Triglyceri adolph much more elevated since last labs.Will increase Rosuvastat in. Discussed healthy eating and exercise. Prostate s pecific antigen above reference range 116460811 R97.20 Chronic. Has been elevated, but it is trending down. Followed by urology. Gout 13014796 M10.9 Only has flares on rare occasion. Will plan to keep him on allopurino l as needed. He has only been taking when needing it for flare up, advised if it becomes more frequent will change to maintenanc e dosing. Serum crea tinine above reference range 933609926 R79.89 Chronic. He has been followed by nephrology and states no further testing indicated by them. Will continue to monitor for now. Hypertensive disorder 38 073100 I10 Will continue to monitor. He is currently already on triple therapy, has been on LIBORIO previously but could not tolerate due to cough. He states home readings are usually not as high, generally in the 140s systolic. We had a long discussion about weight loss, healthier diet/decre ase sodium. He will continue to monitor. [id number] Mitchel Naylor MD [facility] Primary Care [facility] [address] [facility] [address] [place] [address] 11/15/2022 16:20:44 11/15/2022 17:12:13 Degeneration of intervertebral disc 57938709 M51.9 as a result of his time in service, will provide a nexus letter Anemia 618638980 D64.9 Serum crea tinine above reference range 226518991 R79.89 Gout 98609159 M10.9 [id number] Mitchel Naylor MD [facility] Primary Care [facility] [address] [facility] 140 [place] [address] 12/20/2022 14:21:20 12/20/2022 17:04:51 Anemia 035615625 D64.9 Serum crea tinine above reference range 714152697 R79.89 currently on 12 tab Gout 56334414 M10.9 Cobalamin deficiency 190 038731 E53.8 [id number] Mitchel Naylor MD [facility] Primary [facility] [address] [facility] 140 [place] [address] 03/02/2023 14:57:16 03/02/2023 15:46:26 Serum creatinine above reference range 212050033 R79.89 currently on 1/2 tab olmesartan /hctz daily but bp is above goalmay adjust bp med based on lab results Gout 64916104 M10.9 refill prednisone to have on hand Herpes simplex 44208793 B00.9 refill given to keep on hand [id number] Mitchel Naylor MD [facility] Primary [facility] [address] [facility] 140 [place] [address] 05/15/2023 12:27:14 05/15/2023 14:08:44 Essential hypertension 80825971 I10 cannot tolerate full tab olmesartan /hctz due to renal insufficie ncycontinu e diltiazem bidadd nebivolol 10 mg dailyf/u in 4 weeks Administra tion of influenza vaccine 28018056 Z23 [id number] Mitchel Naylor MD [facility] Primary Care [address] [place] [address] 09/11/2023 12:00:47 09/11/2023 13:19:35 Pain of left hip joint [id number] 20445 M25.552 Anemia 452070190 D64.9 Serum crea tinine above reference range 857886348 R79.89 currently on 2 tab olmesartan /hctzwill check labs Gout 43442328 M10.9 refill prednisone to have on hand Cobalamin deficiency 190 181153 E53.8 Screening for malignant neoplasm of prostate 845932353 Z12.5 Hyperlipidemia 36970189 E78.5 [id number] Mitchel Naylor MD [facility] Primary Care [address] 140 [facility] [place] [address] 11/13/2023 11:39:50 11/13/2023 12:29:08 Degeneration of lumbar intervertebral disc 65795766 M51.36 stablerefi ll givenhas to avoid nsaids as noted by nephrology Serum crea tinine above reference range 088032806 R79.89 seeing nephrology has d/c advilcan try turmeric and/or glucosamin e chondroiti n Essential hypertension 98663012 I10 cannot tolerate full tab olmesartan /hctz due to renal insufficie ncycontinu e diltiazem bidadd nebivolol 10 mg dailyf/u in 4 weeks 11/13/23: doing wellf/u in 3 months or sooner if needed [id number] SALAZAR Mojica [facility] Primary Care [address] 140 [facility] [place] [address] 01/10/2024 14:46:36 01/10/2024 17:13:09 [id number] SALAZAR Mojica [facility] Primary Care [address] 140 [facility] [place] [address] 01/30/2024 14:30:49 01/30/2024 15:09:37 Pruritic rash 88939380 L28.2 has been there for approx 2 monthsnote d to sal lower legs/armsh as been using calamine lotion daily, some relief [id number] SALAZAR Barnett [facility] Primary Care [address] 140 [facility] [place] [address] 02/26/2024 14:56:28 02/26/2024 15:31:10 Renewal of prescription 974844198 Z76.0 Arthritis 8338697 M19.90 Doing well on current medication s, will continue to refill as needed. Degenerati on of lumbar intervertebral disc 62913101 M51.36 Doing well on current medication s, will continue to refill as needed. Essential hypertension 65640080 I10 188/102 [id number] /90 recheck.Wi ll continue current medication s and follow up in 6 months. Gout 56767085 M10.9 Doing well on current medication s.Denies recent flare ups Hypercholesterolemia 136 09974 E78.00 Doing well on current medication s, will continue to refill as needed. [id number] ROHINI Barnett-Roderick [facility] [place] [address] [place] [address] 05/01/2024 16:49:16 05/01/2024 17:43:28 Pre-surgery evaluation 792307769 Z01.601 [id number] SALAZAR Barnett [facility] [place] [address] [place] [address] 05/13/2024 11:28:04 05/13/2024 12:53:23 Adult health examination 385695068 Z00.00 Discussed medication compliance and routine follow up.Discuss ed healthy diet and routine exercise.Pritesh reynosoiewed vaccine records and made recommenda tions as needed.Enc ouraged annual eye and dental exams, as well as twice yearly dental cleanings. Screening for disorder 460138294 Z13.9 Screening for malignant neoplasm of prostate 147314690 Z12.5 Will check labs as listed below. Administra tion of influenza vaccine 03045487 Z23 Body mass index 30+ - obesity 643202980 Z68.31 Health Concerns Section Related Observation LastModified by Organization Detai ls LastModified Time None Recorded Concern Status LastModified by Organization Details LastModified Time None Recorded Advance Directives Directive Y: Payers Encounter Date Sequence Insurance Name Policy Number Policy Cuellar Covered Member ID Cuellar Member ID Guarantor Name 01/10/2024 1 [place] Sukhi Jay [id number] Sukhi Jay 01/10/2024 2 WPS - FOR LIFE Sukhi Jay [id number] Sukhi Jay 01/30/2024 1 [place] Suk[place] Jay [id number] Sukhi Jay 01/30/2024 2 WPS - FOR LIFE Sukhi Jay [id number] Sukhi Jay 02/26/2024 1 [place] S[place] Jay [id number] Sukhi Jay 02/26/2024 2 WPS - FOR LIFE Sukhi Jay [id number] Sukhi Jay 05/01/2024 1 [place] Sukhi Jay [id number] Sukhi Jay 05/01/2024 2 WPS - FOR LIFE Sukhi Jay [id number] Sukhi Jay 05/13/2024 1 [place] Sukhi Jay [id number] Sukhi Jay 05/13/2024 2 WPS - FOR LIFE Sukhi Jay [id number] Sukhi Jay Notes Date Note Type Note Provider Name and Address Organization Details Recorded Time 01/30/2024 text/html pt is here for SALAZAR Beckwith [address] [employer], [place], [address], [place] 01/30/2024 15:05:34 02/26/2024 text/html Patient is a 73 year old male that presents to the office for follow up. Patient reports he is doing well on current medications and has no concerns at this time. Patient denies chest pain and shortness of breath, nausea vomiting and diarrhea. SALAZAR Barnett [address] [employer], [place], [address], [place] 02/26/2024 15:34:45 05/01/2024 text/html Patient is a 74 year old male that presents to the office for surgical clearance. Patient is scheduled on 05/07/24 to have L2-5 Decompression surgery at [facility], Dr. Toledo. Patient denies all medical concerns at this time including chest pain and shortness of breath. SALAZAR Barnett [address] [employer], [place], [address], [place] 05/02/2024 10:22:02 05/13/2024 text/html Patient is a 74 year old male that presents to the office for annual wellness. Patient reports he is doing well on current medications and has no concerns at this time including chest pain and shortness of breath. Patient recently had back surgery and is doing well. Patient reports mild constipation due to pain medications which he has been treating with OTC stool softeners. qnus-HNHDHL-tdxkueb (8.35 in September)Cologuard-UTD due 2024Flu-orderedCovi g-UKJUfpk-bedsiLkxt fcfj-SFZIxjvwguww-D TD Desirae French, ADHESIVE SPRAYER-C [address] [facility] [address], [place], [address], [facility] 05/13/2024 16:39:05
[2024-08-19 12:30] LABS: Anion Gap 11 mmol/L (4-12); Blood Urea Nitrogen 37 mg/dL (9-20); Calcium 9.3 mg/dL (8.4-10.2); Carbon Dioxide 29 mmol/L (22-30); Chloride 98 mmol/L (98-107); Estimated Glomerular Filt Rate 42; Glucose 111 mg/dL (65-110); Potassium 4.1 mmol/L (3.4-5.0); Sodium 138 mmol/L (137-145)
[2024-08-19 12:39] LABS: Prothrombin Time 12.9 Seconds (11.1-14.7)
[2024-08-19 12:40] LABS: Partial Thromboplastin Time 29.6 Seconds (22.3-36.8)
== END 2024-08-19 11:26 | disposition home or self-care (01) ==
LOC: ANHSURGERY 11:29
PROVIDERS: Anesthesiology; PCP Family Medicine; Visit Provider Urology
DX: N18.9 Chronic kidney disease, unspecified (principal)
CPT/HCPCS: 36415; 80048; 85610; 85730

== ENCOUNTER 2024-08-22 00:08 | Day surgery (SDC) | payer MEDICARE, OTHER, SELFPAY ==
--- NOTE | 2024-08-06 07:38 | P.HP_ITS ---
History of Present Illness History of Present Illness Consent: Risks, benefits, and alternatives have been discussed and questions answered. Patient agrees to proceed with procedure. Chief complaint: Elev PSA Narrative: Sukhi Jay is a 74 year old male who is a regular patient in our practice on testosterone replacement therapy. He had a recent PSA progression to 10.2. Wear a prostate MRI was normal in November 2022 at now shows a 2 cm PI-RADS 5 lesion in the right transition zone. After discussion of options he is elected for a Uronavl fusion biopsy. He is aware of the risks including, but not limited to, failure to diagnose a malignancy, hematuria, rectal bleeding and bacteremia. Review of Systems Review of Systems: All systems reviewed & are unremarkable except as noted in HPI and below PMFSH Family History Family History Father Family history of osteoarthritis Family history of primary malignant neoplasm of liver Family history of lung cancer Family history of throat cancer Patient's father is Mother Family history of malignant neoplasm Family history of malignant neoplasm of thyroid Family history of malignant neoplasm of bone Family history of malignant neoplasm of breast in first degree relative Other Hypertension Social History Social History Smoking status: Never smoker Alcohol intake: current Meds Home Medications and Allergies Home Medications ?Medication ?Instructions ?Recorded ?Confirmed ?Type diltiazem HCl 240 mg capsule,24 240 mg PO DAILY #90 caps 09/23/19 Rx hr,extended release Allergies Allergy/AdvReac Type Severity Reaction Status Date / Time No Known Allergies Allergy Unverified 02/17/21 18:04 Exam Const: General: no acute distress Resp: Effort & Inspection: normal respiratory effort GI: Inspection: non-distended GI Palp: No abdominal tenderness and No Guarding due to palpation present (GI) Auscultation: normal bowel sounds Assessment and Plan Assessment and plan (1) Abnormal PSA: Code(s): R97.20 - Elevated prostate specific antigen [PSA] Status: Acute Assessment and Plan: * UroNav prostate biopsy
--- NOTE | 2024-08-16 10:49 | PC.NURSE ---
Report to the Outpatient Waiting Room, entrance under the green pavilion located off [facility], at time _7:30 am on date __08/22/24 . Planned Procedure Time: 9:30 am .? Time changes happen often and if your time is changed the preop area will call you the afternoon before. - You and your visitor will be asked to self-screen and do not enter if you have any COVID symptoms. Please call surgeon if you need to reschedule. - A mask is optional within the hospital at this time. Patients may have clear liquids (water, carbonated beverages, clear teas, apple juice) until 3 hours prior to surgery( 6:30 am) with a maximum of 20 ounces. - No food from midnight until time of surgery and no smoking, or chewing tobacco (or any form of nicotine). No chewing gum, candy or mints. Take only the following medications with a SIP of water on the morning of surgery: _CARVEDILOL,DULOXETINE DO NOT STOP ANY OF YOUR OTHER PRESCRIPTION MEDICATIONS PRIOR TO SURGERY EXCEPT THE FOLLOWING Hold all vitamins and supplements for 3 days per anesthesiologist.LAST DOSE 08/18/24 Medications to discontinue per physician NONE Please no make-up, nail yakut, hairspray, perfume, deodorant, or body powder the day of surgery.? No jewelry (including any body piercings) or valuables the day of surgery, leave them at home.? Please take a shower or bath the night before, or the morning of, surgery with an antibacterial soap.? Wear comfortable, loose fitting clothing.? Children are encouraged to wear pajamas. - Jewelry must be removed prior to entering the operating room.? Rings and piercings that are not removed may be cut off. - The hospital will not accept responsibility for valuables.? - Please leave all valuables, including medications, at home the day of surgery. If you are going home after surgery, a licensed armor reconnaissance vehicle driver must drive you home.? - NO public transportation without another adult if you receive anesthesia. - We recommend that an adult stay with you for 24 hours following discharge. - We also recommend that you do not drive, make important decision, drink alcoholic beverages, or take any drugs that were not prescribed by your health care provider for at least 24 hours after your discharge time. Follow any additional instructions given to you from your surgeon. Telephone instructions given to __PATIENT and asked if any additional questions and then verbalized understanding. Patient advised to call surgeon office or pre surgery nurse liaison [phone] if any additional questions.
[2024-08-16 11:21] VITALS: BMI 34.9
--- OUTSIDE RECORDS SUMMARY | 2024-08-22 00:12 | XMS_ITS | Clinical Summary ---
Author Organization [facility] Facility Address [address] [place] [address] Care Team Providers Care County Supervisor Name Role Phone Nelia Naylor MD Primary Care Provider Allergies No known active allergies Medications allopurinol [...] Department Care Team Description 08/13/2024 Documentation Only [facility], [address] [address] Zafar Chambers MD 08/12/2024 1:00 PM CITY MAIL CARRIER Office Visit [facility], [address] [address] Zafar Chambers MD Hypertensive chronic kidney disease stage 3 (Primary Dx); Anemia, not otherwise specified; Essential hypertension; Hypercholesterolemia , not otherwise specified; Cobalamin deficiency 08/05/2024 Orders Only [facility], [facility] [address] [place] [address] [address] [place] [address] Zafar Chambers MD 08/01/2024 Refill [facility], [facility] [address] [facility] 15 [place] [address] Zafar Chambers MD 05/25/2024 Documentation Only [facility], [facility] [address] [place] [address] [address] [place] [address] Zafar Chambers MD from Last 3 Months [...] Comments Blood Pressure 160/80 08/12/2024 1:06 PM CITY MAIL CARRIER Pulse 73 08/12/2024 1:06 PM CITY MAIL CARRIER Temperature 36.9 C (98.4 F) 08/12/2024 1:06 PM CITY MAIL CARRIER Respiratory Rate 18 08/12/2024 1:06 PM CITY MAIL CARRIER Oxygen Saturation 94% 08/12/2024 1:06 PM CITY MAIL CARRIER Inhaled Oxygen Concentration - - Weight 84.8 kg (187 lb) 08/12/2024 1:06 PM CITY MAIL CARRIER Height 157.5 cm (5' 2 ) 08/12/2024 1:06 PM CITY MAIL CARRIER Body Mass Index 34.2 08/12/2024 1:06 PM CITY MAIL CARRIER Plan of Treatment Upcoming Encounters Date Type Department Care Team (Late st Contact Info) Description 12/09/2024 12:30 PM CDT Office Visit [facility], [facility] [address] [facility] 1 [place] [address] [place] [address] [place] [address] Health Maintenance Due Date Last [...] Comments HEMOGLOBIN A1C Routine 08/05/2024 11:41 AM CITY MAIL CARRIER CBC AND DIFFERENTIAL Routine 08/05/2024 11:41 AM CITY MAIL CARRIER RENAL FUNCTION PANEL Routine 08/05/2024 11:41 AM CITY MAIL CARRIER IRON PANEL (FE, TIBC, TSAT) Routine 08/05/2024 11:41 AM CITY MAIL CARRIER from Last 3 Months Results * Iron Panel (Fe, TIBC, TSAT) (08/05/2024 11:41 AM CITY MAIL CARRIER) Iron, Total 60 50 - 180 mcg/dL See order comments TIBC 252 250 - 425 mcg/dL (calc) See order comments Iron Saturation (TSat) 24 20 - 48 % (calc) See order comments 08/05/2024 11:4 1 AM CITY MAIL CARRIER 08/05/2024 11:43 AM CITY MAIL CARRIER Narrative Resulting Agency Comment Performing Organization Information: Site ID: [place] Name: [email or web address] Address: [address] [place] [address] Director: Shaw Love MD us Kenyoned Candis Chambers MD LAB BLOOD ORDERABLES Final Res ult [facility] See order comments [place] [address] * (ABNORMAL) CBC and Differential (08/05/2024 11:41 AM CITY MAIL CARRIER) WBC 6.3 3.8 - 10.8 Thousand/ uL [...] t he ancillary. 08/05/2024 11:4 1 AM CITY MAIL CARRIER 08/05/2024 11:43 AM CITY MAIL CARRIER Narrative Resulting Agency Comment Performing Organization Information: Site ID: [place] Name: [email or web address] Address: [address] [place] [address] Director: Shaw Love MD us Kenyoned Candis Chambers MD LAB BLOOD ORDERABLES Final Res ult [facility] See order comments [place] [address] * (ABNORMAL) Hemoglobin A1c (08/05/2024 11:41 AM CITY MAIL CARRIER) Hemoglobin A1C 5.7(H) <5.7 % of total [...] diabetes for children. 08/05/2024 11:4 1 AM CITY MAIL CARRIER 08/05/2024 11:43 AM CITY MAIL CARRIER Narrative Resulting Agency Comment Performing Organization Information: Site ID: [place] Name: [facility] Address: [address] [place] [address] Director: Shaw Love us Sameed Candis Chambers MD LAB BLOOD ORDERABLES Final Res ult [facility] See order comments [place] [address] * (ABNORMAL) Renal Function Panel (08/05/2024 11:41 AM CITY MAIL CARRIER) Glucose 109(H) 65 - 99 mg/dL See [...] See order comments 08/05/2024 11:4 1 AM CITY MAIL CARRIER 08/05/2024 11:43 AM CITY MAIL CARRIER Narrative Resulting Agency Comment Performing Organization Information: Site ID: [email or web address] Name: [facility] Address: [address] [place] [address] Director: Shaw Love MD us Sameed Candis Chambers MD LAB BLOOD ORDERABLES Final Res ult [facility] See order comments [place] [address] from Last 3 Months Insurance MEDICARE [facility] Advance Directives Documents on File Type Date Recorded Patient Cushion Former Expl anation Advance Care Planning 10/16/2023 3:23 PM Care Teams County Supervisor Relationship Specialty Start Date End Date Nelia Naylor MD [address] [place] [address] [place] [address] PCP - General Family Medicine 09/12/23
--- OUTSIDE RECORDS SUMMARY | 2024-08-22 00:12 | XMS_ITS | Clinical Summary ---
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 Nuclear sclerotic cataract 08/18/2015 Visual field defect 03/04/2015 Acquired ptosis of eyelid of both eyes 5 Arthralgia of shoulder 02/26/2014 Keratosis, senilis 01/25/2013 Lentigo 01/25/2013 Benign neoplasm of skin of trunk 01/25/2013 Skin tag 01/25/2013 Encounters Date Type Department Care Team Description 06/24/2024 11:48 AM [employer] G[employer]VEL PLANT OPERATOR - 06/24/2024 11:59 PM SAND AND G[employer]VEL PLANT OPERATOR Hospital Encounter [facility] [address] [place] [address] Neurogenic claudication due to lumbar spinal stenosis Discharge Disposition: Discharge to home or self care 06/24/2024 11:30 AM S[employer] AND G[employer] PLANT OPERATOR Office Visit [facility] [address] [facility] [address] [address] Edwardo Toledo MD PhD Neurogenic claudication due to lumbar spinal stenosis (Primary Dx) 06/21/2024 Orders Only [facility] [address] [facility] [address] [place] [address] Edwardo Toledo MD PhD Neurogenic claudication due [...] History of hyperlipi demia - (Added by TW Conv) Sleep apnea Gastric reflux Glaucoma Hypertension [...] on file Legal Sex Male 2:55 AM S[employer] AND G[employer]EL PLANT OPERATOR Gender Identity Not on file Sexual Orientation Not on file Obstetrics History Last Filed Vital Signs Vital Sign Reading Time Taken Comments Blood Pressure 140/72 06/24/2024 12:19 PM S[employer] AND GRAVEL PLANT OPERATOR Pulse 96 06/24/2024 12:19 PM SAND AND GRAVEL PLANT OPERATOR Temperature 36.3 C (97.4 F) 05/07/2024 4:25 PM CDT Respiratory Rate 19 05/07/2024 5:00 PM CDT Oxygen Saturation 96% 06/24/2024 12:19 PM S[employer] AND GRAVEL PLANT OPERATOR Inhaled Oxygen Concentration - - Weight 83 kg (183 lb) 06/24/2024 12:19 PM SAND AND GRAVEL PLANT OPERATOR Height 157.5 cm (5' 2 ) 06/24/2024 12:19 PM SAND AND GRAVEL PLANT OPERATOR Body Mass Index 33.47 06/24/2024 12:19 PM SAND AND GRAVEL PLANT OPERATOR Plan of Treatment Health Maintenance Due Date [...] Read Routine (OP Routine) 06/24/2024 12:05 PM S[employer] AND GRAVEL PLANT OPERATOR Neurogenic claudication due to lumbar spinal stenosis from Last 3 Months Results * XR Spine Lumbar 2 or 3 Views (06/24/2024 12:05 PM SAND AND GRAVEL PLANT OPERATOR) Anatomical Region Laterality Modality Spine N/A Digital Radiogra phy 06/24/2024 12:4 2 PM SAND AND GRAVEL PLANT OPERATOR Impressions 06/24/2024 12:42 PM SAND AND GRAVEL PLANT OPERATOR FINDINGS/IMPRESSION: 5 nonrib-bearing lumbar-type vertebral bodies. Subtle [...] Joshua Fagan M.D. Narrative 06/24/2024 12:42 PM S[employer] AND GRAVEL PLANT OPERATOR EXAM: XR SPINE LUMBAR 2 OR 3 [...] Insurance MEDICARE FOR LIFE MEDICARE FOR LIFE Care Teams Toll Operator Relationship Specialty Start Date End Date Nelia Naylor MD [address] [place] [address] [place] [address] PCP - General Family Medicine 02/21/22
--- OUTSIDE RECORDS SUMMARY | 2024-08-22 00:12 | XMS_ITS | Clinical Summary ---
Author Organization 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
--- OUTSIDE RECORDS SUMMARY | 2024-08-22 00:12 | XMS_ITS | Continuity of Care Document ---
Author Name [facility] Organization [facility] Care Team Providers Care Edge Grinder Machine Name Role Phone [facility] Unavailable Unavailable Problems Combined list of problems from Department of Defense and Veterans Affairs facilities. It does not include entries that were removed or entered in error. Problem Status Onset Date Problem Type Date of Resolution Comments Source visit for: issue repeat prescription Inactive Condition [facility] visit for: administrative purpose Inactive Condition [facility] hypertension systemic Active Condition Pt needs med refill. BPs well controlled now DoD proteinuria Active Condition Will rec ehck labs and screen for DM. HTN is well controlled now. Asked pt to avoid NSAIDS. Pt needs a new consult to Nephrology. DoD visit for: screening exam malignant neoplasm prostate Inactive Condition ДМИТРИЙ normal DoD visit for: issue repeat prescription for medication Inactive Condition [facility] Administrative Evaluation Services Inactive Condition DoD seborrheic keratosis Active Condition Liquid N2. 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 Will cont with current mgmt. [facility] backache Inactive Condition NOrmal exa m .No red flags. No radiculopathy. Will get baseline films for pt anxiety. [facility] upper respiratory infection Inactive Condition chloraseptic spray, losengers, cont entex, cont motrin, gargles. RTC if worsens or fails to resolve. [facility] closed fracture 5th finger proximal phalanx right hand Active Condition [facility] acquired deformity of finger Active Condition DoD [...] ORAL, 'S LAB, 1000 ea. BOTTLE Active [id number] 4 2023 360 Pharmac y Data Transac tion Service Facilit y ALLOPURINOL (ALLOPURINO L), 100MG, TABLET, ORAL, 'S LAB, 1000 ea. BOTTLE Active [id number] 4 2023 360 Pharmac y Data Transac tion Service Facilit y CARVEDILOL (carvedilol ), 12.5 MG, TABLET, ORAL, [employer] 500 ea. BOTTLE Active [id number] 4 2023 180 Pharmac y Data Transac tion Service Facilit y CARVEDILOL (CARVEDILOL ), 3.125MG, TABLET, ORAL, [employer]ARMA, 500 ea. BOTTLE Cancele d [id number] : 2023 0 Pharmac y Data Transac tion Service Facilit y CYCLOSPORIN E (cyclospori ne), 0.05 %, DROPERETTE, OPHTHALMIC, [employer] 30 ea. VIAL Active [id number] 4 2023 180 Pharmac y Data Transac tion Service Facilit y HYDROXYZINE HCL (hydroxyzin e HCl), 25 MG, TABLET, ORAL, RISING [employer]ARM, 500 ea. BOTTLE Active [id number] 4 2023 12 Pharmac y Data Transac tion Service Facilit y LOSARTAN POTASSIUM (LOSARTAN POTASSIUM), 50 MG, TABLET, ORAL, AUROBINDO PHARM, 1000 ea. BOTTLE Cancele d [id number] : 2023 0 Pharmac y Data Transac tion Service Facilit y LOSARTAN POTASSIUM (losartan potassium), 50 MG, TABLET, ORAL, XLCARE PHARMACE, 90 ea. BOTTLE Cancele d [id number] : 2023 0 Pharmac y Data Transac tion Service Facilit y LOSARTAN POTASSIUM (losartan potassium), 50 MG, TABLET, ORAL, XLCARE PHARMACE, 90 ea. BOTTLE Active [id number] 4 2023 90 Pharmac y Data Transac tion Service Facilit y LUMIGAN (BIMATOPROS T), 0.01 %, DROPS, OPHTHALMIC, [employer] 2.5 ml DROP BTL Active [id number] 11/30/19 2 4 2023 7.5 Pharmac y Data Transac tion Service Facilit y MUPIROCIN (MUPIROCIN) , 2%, OINT.(GM), TOPICAL, [employer] 22 g TUBE Cancele d [id number] : 2023 0 Pharmac y Data Transac tion Service Facilit y NEBIVOLOL HCL (nebivolol HCl), 10 MG, TABLET, ORAL, [facility], 30 ea. BOTTLE Cancele d [id number] : 2023 0 Pharmac y Data Transac tion Service Facilit y NEBIVOLOL HCL (nebivolol HCl), 10 MG, TABLET, ORAL, [employer] [facility], 30 ea. BOTTLE Cancele d [id number] : 2023 0 Pharmac y Data Transac tion Service Facilit y NEBIVOLOL HCL (nebivolol HCl), 10 MG, TABLET, ORAL, [facility], 30 ea. BOTTLE Cancele d [id number] : 2022 0 Pharmac y Data Transac tion Service Facilit y NEBIVOLOL HCL (nebivolol HCl), 10 MG, TABLET, ORAL, [facility], 30 ea. BOTTLE Active [id number] 4 2023 65 Pharmac y Data Transac tion Service Facilit y NEBIVOLOL HCL (nebivolol HCl), 10 MG, TABLET, ORAL, [facility], 30 ea. BOTTLE Active [id number] 4 2023 90 Pharmac y Data Transac tion Service Facilit y NEBIVOLOL HCL (nebivolol HCl), 10 MG, TABLET, ORAL, [facility], 90 ea. BOTTLE Cancele d [id number] : 2023 0 Pharmac y Data Transac tion Service Facilit y NEBIVOLOL HCL (nebivolol HCl), 10 MG, TABLET, ORAL, [facility] [facility], 90 ea. BOTTLE Active [id number] 4 2023 90 Pharmac y Data Transac tion Service Facilit y PREDNISONE (prednisone ), 20 MG, TABLET, ORAL, NOVITIUM/AN I PH, 500 ea. BOTTLE Active [id number] 4 2023 5 Pharmac y Data Transac tion Service Facilit y ROSUVASTATI N CALCIUM (rosuvastat in calcium), 40 MG, TABLET, ORAL, [employer] 30 ea. BOTTLE Cancele d [id number] : 2023 0 Pharmac y Data Transac tion Service Facilit y ROSUVASTATI N CALCIUM (rosuvastat in calcium), 40 MG, TABLET, ORAL, [employer] 30 ea. BOTTLE Active [id number] 4 2023 90 Pharmac y Data Transac tion Service Facilit y TAMSULOSIN HCL (TAMSULOSIN HCL), 0.4 MG, CAP.SR 24H, ORAL, ZYDUS PHARMACEU, 1000 ea. BOTTLE Cancele d [id number] : 2023 0 Pharmac y Data Transac tion Service Facilit y TAMSULOSIN HCL (TAMSULOSIN HCL), 0.4 MG, CAP.SR 24H, ORAL, ZYDUS PHARMACEU, 1000 ea. BOTTLE Active [id number] 4 2023 90 Pharmac y Data Transac tion Service Facilit y TAMSULOSIN HCL (TAMSULOSIN HCL), 0.4 MG, CAP.SR 24H, ORAL, ZYDUS PHARMACEU, 1000 ea. BOTTLE Cancele d [id number] : 2023 0 Pharmac y Data Transac tion Service Facilit y TORSEMIDE (torsemide) , 20 MG, TABLET, ORAL, [employer] 90 ea. BOTTLE Cancele d [id number] : 2023 0 Pharmac y Data Transac tion Service Facilit y TORSEMIDE (torsemide) , 20 MG, TABLET, ORAL, [employer] 90 ea. BOTTLE Active [id number] 4 2023 90 Pharmac y Data Transac tion Service Facilit y TORSEMIDE (TORSEMIDE) , 20MG, TABLET, ORAL, [employer], 100 ea. BOTTLE Active [id number] 4 2023 90 Pharmac y Data Transac tion Service Facilit y TRAMADOL HCL (tramadol HCl), 50 MG, TABLET, ORAL, AMNEAL PHARMACE, 500 ea. BOTTLE Active [id number] 4 2023 180 Pharmac y Data Transac tion Service Facilit y TRAMADOL HCL (tramadol HCl), 50 MG, TABLET, ORAL, AMNEAL PHARMACE, 500 ea. BOTTLE Active [id number] 4 2023 180 Pharmac y Data Transac tion Service Facilit y TRAMADOL HCL (tramadol HCl), 50 MG, TABLET, ORAL, AMNEAL PHARMACE, 500 ea. BOTTLE Cancele d [id number] : 2023 0 Pharmac y Data Transac tion Service Facilit y TRAMADOL HCL (tramadol HCl), 50 MG, TABLET, ORAL, AMNEAL PHARMACE, 500 ea. BOTTLE Cancele d [id number] : 2023 0 Pharmac y Data Transac tion Service Facilit y TRAMADOL HCL (tramadol HCl), 50 MG, TABLET, ORAL, AMNEAL PHARMACE, 500 ea. BOTTLE Active [id number] 2023 180 Pharmac y Data Transac tion Service Facilit y TRAMADOL HCL (tramadol HCl), 50 MG, TABLET, ORAL, AMNEAL PHARMACE, 500 ea. BOTTLE Active [id number] 4 2023 180 Pharmac y Data Transac tion Service Facilit y TRAMADOL HCL (tramadol HCl), 50 MG, TABLET, ORAL, AMNEAL PHARMACE, 500 ea. BOTTLE Active [id number] 4 2023 180 Pharmac y Data Transac tion Service Facilit y TRAMADOL HCL (tramadol HCl), 50 MG, TABLET, ORAL, AMNEAL PHARMACE, 500 ea. BOTTLE Active [id number] 4 2023 180 Pharmac y Data Transac tion Service Facilit y Allergies, Adverse Reactions, Alerts Combined list of allergies from Department of Defense and Veterans Affairs facilities. It does not include entries that were removed or entered in error. Substance Category Reaction Severity Reaction type Status Date Reported Comments Source NO OUTPUT FOR NCID 197929 Drug allergy (disorder) active 09/19/2006 [facility] Adin WALKER ([facility] Immunizations Combined list of available immunizations from the Department of Defense and Veterans Affairs facilities. Immunization Series Date Given Administered By Site Reaction Lot Number CVX Code Drug Layout Former Status Comments Source COVID-19, mRNA, LNP-S, PF, 30 mcg/0.3 mL dose, cornell-sucrose 2021 [employer] [place] (PFR) Not Given COVID-19, mRNA, LNP-S, [...] vaccine, whole virus 1 2002 Unknown, Provider [id number] Sanofi Pasteur ([facility]) complet ed influenza virus vaccine, whole virus DoD tetanus and diphtheria toxoids, adsorbed, preservative free, for adult use (2 Lf of tetanus toxoid and 2 Lf of diphtheria toxoid) 1 1999 Unknown, Provider [id number] Sanofi Pasteur ([facility]) complet ed tetanus and diphtheri a toxoids, [...] ADM Date DC Date Status Disposition Source [address] [place] [address] Adin WALKER ([facility] [place]Sco [place] [facility] [place]) TELE CONSULT [id number] Rx Request ERIK VIZCARRA 01/[address] [place] [address] Adin WALKER ([facility] [place]S cott [facility] Tm Blue) [address] [place] [address] Adin WALKER ([facility] [place]Sco [place] [facility] Tm Blue) TELE CONSULT [id number] med refill ERIK VIZCARRA 02/[address] [place] [address] Adin WALKER ([facility] [place]S [place] [facility] Tm Blue) [address] [place] [address] Adin WALKER ([facility] [place] [facility] Fam Res Tm Green) OUTPATIENT [id number] Finger Pain KRISTIAN VEGA 03/17 Released w/o Limitations [address] [place] [address] Adin WALKER ([facility] [place]S [place] [facility] [place] [facility] Tm Green) [address] [place] [address] Adin WALKER ([facility] [place]Sco [facility] Tm Blue) OUTPATIENT [id number] check up MARTI SILVEIRA 04/01 Released w/o Limitations [address] [place] [address] Adin WALKER ([facility] [place]S [place] [facility] Tm Blue) [address] [place] [address] Adin WALKER ([facility] [place]Sco [facility] Tm Blue) OUTPATIENT [id number] severe sore throat BANDAR TITUS 07/18 Released w/o Limitations [address] [place] [address] Aidn WALKER ([facility] [place]S [place] [facility] Tm Blue) [address] [place] [address] Adin WALKER ([facility] [place]Sco tt [facility] Tm Blue) OUTPATIENT [id number] skin discolo ration on rt thigh (progre ssively growing --size of a dime) SALUD BRICENO 09/06 Released w/o Limitations [address] [place] [address] Adin WALKER ([facility] [place]S cott [facility] Tm Blue) [address] [place] [address] Adin WALKER ([facility] [place]Sco tt [facility] Tm Blue) TELE CONSULT [id number] med refill DION VILLANUEVA 01/[address] [place] [address] Adin WALKER ([facility]S [facility] Tm Blue) [address] [place] [address] Adin WALKER ([facility] [place]Sco [facility] Tm Blue) TELE CONSULT [id number] med refill DION VILLANUEVA 02/[address] [place] [address] Adin WALKER ([facility]S [facility] Tm Blue) [address] [place] [address] Adin WALKER ([facility] [place]Sco tt [facility] Tm Blue) OUTPATIENT [id number] routine physica l JOMAR MARTINEZ E 02/21 Released w/o Limitations [address] [place] [address] Adin WALKER ([facility] [place]S [facility] FAMRES Tm Blue) [address] [place] [address] [facility]Sco tt [facility] Tm Blue) TELE CONSULT [id number] wt loss study? JOMAR MARTINEZ 07/[address] [place] [address] [facility]S [facility] FAMRES Tm Blue) [address] [place] [address] [facility]Sco tt [facility] Tm Blue) TELE CONSULT [id number] med renewal JOMAR MARTINEZ 09/[address] [place] [address] [facility] Celia Guadarrama) [facility] Outpatient Encounter [id number] 04/06 [facility] Procedures Combined list of: 1) Procedures from Department of Veterans Affairs facilities going back up to thelast 18 months, not all [place] non-surgical procedures are included; 2) All procedures from the Department of Defense facilities. Procedure Procedure Type Code Date Perfomer Comments Hi chávez Destruction Of Benign Lesion By Cryosurgery 09/06/[address] [facility] ARTHROSCOPY OF KNEE 08/01/1996 D oD OTHER LOCAL EXCISION OR DESTRUCTION OF LESION OF KNEE JOINT 08/01/1996 [facility] EXCISION OF SEMILUNAR CARTILAGE OF KNEE 08/01/1996 DoD Social History Combined list of available smoking, tobacco, and other social history from Department of Defense and Veterans Affairs facilities. Social History Type Response Date Comment Hi chávez This section is an empty social history section. DoD
--- OUTSIDE RECORDS SUMMARY | 2024-08-22 00:12 | XMS_ITS | Referral Summary ---
Author Organization [facility] Address [address] [place] [address] Care Team Providers Care Manager Agriculture Name Role Phone Nelia Naylor MD Primary Care Provider + Encounters Date Type Department Care Team Description 06/24/2024 11:48 AM PLANT SUPERVISOR - 06/24/2024 11:59 PM PLANT SUPERVISOR Hospital Encounter [facility] [address] [place] [id number] Neurogenic claudication due to lumbar spinal stenosis Discharge Disposition: Discharge to home or self care 06/24/2024 11:30 AM PLANT SUPERVISOR Office Visit [facility] [address] [address] Edwardo Toledo MD PhD Neurogenic claudication due to lumbar spinal stenosis (Primary Dx) 06/21/2024 Orders Only [facility] [address] [facility] [address] [address] Edwardo Toledo MD PhD Neurogenic claudication due [...] 1 tablet (20 mg total) by mouth survey research associate before breakfast 4 11/30/19 25 Active tadalafiL [...] (02/15/2018): Added automatically from request for surgery [id number] 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 Nuclear sclerotic cataract 08/18/2015 [...] on file Legal Sex Male 2:55 AM PLANT SUPERVISOR Gender Identity Not on file Sexual Orientation Not on file Last Filed Vital Signs Vital Sign Reading Time Taken Comments Blood Pressure 140/72 06/24/2024 12:19 PM PLANT SUPERVISOR Pulse 96 06/24/2024 12:19 PM PLANT SUPERVISOR Temperature 36.3 C (97.4 F) 05/07/2024 4:25 PM CDT Respiratory Rate 19 05/07/2024 5:00 PM CDT Oxygen Saturation 96% 06/24/2024 12:19 PM PLANT SUPERVISOR Inhaled Oxygen Concentration - - Weight 83 kg (183 lb) 06/24/2024 12:19 PM PLANT SUPERVISOR Height 157.5 cm (5' 2 ) 06/24/2024 12:19 PM PLANT SUPERVISOR Body Mass Index 33.47 06/24/2024 12:19 PM PLANT SUPERVISOR Plan of Treatment Not on file Procedures Procedure Name Priority Date/Time Associated Diagnosis Comments XR SPINE LUMBAR 2 OR 3 VIEWS Schedule Routine, Read Routine (OP Routine) 06/24/2024 12:05 PM PLANT SUPERVISOR Neurogenic claudication due to lumbar spinal stenosis from Last 3 Months Results * XR Spine Lumbar 2 or 3 Views (06/24/2024 12:05 PM PLANT SUPERVISOR) Anatomical Region Laterality Modality Spine N/A Digital Radiogra phy 06/24/2024 12:4 2 PM PLANT SUPERVISOR Impressions 06/24/2024 12:42 PM PLANT SUPERVISOR FINDINGS/IMPRESSION: 5 nonrib-bearing lumbar-type vertebral bodies. Subtle [...] Joshua Fagan M.D. Narrative 06/24/2024 12:42 PM PLANT SUPERVISOR EXAM: XR SPINE LUMBAR 2 OR 3 [...] esult from Last 3 Months Insurance MEDICARE [facility] MEDICARE FOR LIFE Care Teams Manager Agriculture Relationship Specialty Start Date End Date Nelia Naylor MD [address] [place] [address] [place] [id number] PCP - General Family Medicine 02/21/22
--- OUTSIDE RECORDS SUMMARY | 2024-08-22 00:13 | XMS_ITS | Data Portability ---
Author Organization [place] - [facility] [employer], Main Office Address [address] [place] [address] Care Team Providers Care Air Bag Builder Name Role Phone MITCHEL NAYLOR Primary Care Provider [phone] MITCHEL NAYLOR Referring Provider Assessment No assessment recorded. Plan of Treatment Reminders Order Date Submit Date Provider Last Modified By Organization Details Last Modified Time Details Appointments Follow Up 30 2024 10:30A M Desirae French NP Not available Not available Not available Lab PSA, serum or plasma 2023 [facility] (Lab), [address] [place], [address], 05/13/2024 21:01:56 Referral dermatolo gist referral - Please call patient to schedule an appointme nt. Thank you. 2023 024 [email or web address] Sri Ying MD (Dermatology) , [address], [address], [place], [address], 02/27/2024 08:33:10 Procedures None recorded. Surgeries None recorded. Imaging None recorded. Medication Orders prednison e 20 mg tablet 2023 [facility][id number], [address] [employer] [address], [phone], 01/30/2024 15:04:48 triamcino lone acetonide 0.1 % topical cream 2023 024 [facility], [address] [place] [address], [id number], 01/30/2024 15:04:46 hydroxyzi ne pamoate 25 mg capsule 2023 024 [facility] #70035, [address], [id number], 01/30/2024 15:05:01 gabapenti n 300 mg capsule 2023 024 [facility] #87284, [address], [phone], 02/26/2024 15:15:04 Patient TargetsNo targets recorded. Patient Instructions Encounter Date Encounter Id Patient Instructions Last Modified By Organization Details Last Modified Time 05/13/2024 [id number] dementia rating scale-2* FATMATA Not available 05/13/2024 13:00:04 multi-dimensiona l health assessment questionnaire* FATMATA Not available 05/13/2024 12:59:51 care plan* FATMATA Not available 05/13 13:00:08 advance care planning: care instructions [email or web address] Not available 05/13/2024 11:50:15 advance directiv es: care instructions [email or web address] Not available 05/13/2024 11:50:15 [place] Advance Directives Not available 05/13/2024 11:50:15 Personalized [...] Screening: Active diagnosis, Continue current treatment plan [email or web address] Not available 05/13/2024 11:30:11 Reason for Referral Case Filler Referral for P ruritic rash rash to all extremities [id number] Please call patient to schedule an appointment. Thank you. Referring Physician: Joseph Emmanuel, [facility], Encounter Date: 01/30/2024 Results Created Date Observation Date Name Description Value Unit Range Abnormal Flag Note LastModifiedBy Organization Detail LastModifiedTime 06/18/20 24 06/18/2024 cardi ac stres s test No observ ation record ed. [id number] [facility] [address], [place], [address], 06/19/2024 16:48:43 08/01/19 25 07/30/2024 , echoc ardio gram No observ ation record ed. [email or web address] [facility] [address], [place], [address], 08/01/2024 17:09:02 Result Notes None recorded. Problems Name Problem SNOMED Code Status Onset Date Resolution Date Notes Provider Name and Address Organization Details Recorded Time Tailor's bunion of right foot 1395790796695 109 Active 2019 Not Available [facility] 3 18:12:03 Bilateral carpal tunnel syndrome 4493692214800 9101 Active 2019 Not Available [facility] 3 18:12:03 Hyperchole sterolemia 30748220 Active 2019 Not Available [facility] 3 18:12:03 Numbness of hand 621583926 Active 2018 Not Available [facility] 3 18:12:03 Arthritis 6869062 Active 2019 Not Available [facility] 3 18:12:03 Hypertensi ve disorder 55088950 Active 2019 Not Available [facility] 3 18:12:03 Disorder of rotator cuff 999744052 Active Not Available [facility] 3 18:12:03 Foot pain 44426177 Active 2019 Not Available [facility] 3 18:12:03 Hand pain 81479877 Active 2018 Not Available [facility] 3 18:12:03 Disorder of bursa of shoulder region 33042999 Active Not Available [facility] 3 18:12:03 Carpal tunnel syndrome 39245404 Active 2018 Not Available [facility] 3 18:12:03 Gout 72643907 Active 2019 Not Available [facility] 3 18:12:03 Degenerati on of lumbar interverte bral disc 17312803 Active 2022 Not Available [facility] 3 18:12:03 Hyperlipid emia 71923337 Active 2022 Not Available [facility] 3 18:12:03 Prostate specific antigen above reference range 656054231 Active 2022 Not Available [facility] 3 18:12:03 Serum creatinine above reference range 175850281 Active 2022 Not Available [facility] 3 18:12:03 Normocytic normochrom ic anemia 20273358 Active 2022 Not Available [facility] 3 18:12:03 Anemia 290801235 Active 2022 Not Available [facility] 3 18:12:03 Degenerati on of interverte bral disc 26535380 Active 2022 Not Available [facility] 3 18:12:03 Cobalamin deficiency 835298203 Active 2022 Not Available [facility] 3 18:12:03 Herpes simplex 85525620 Active 2022 Not Available [facility] 3 18:12:03 Essential hypertensi on 43140129 Active 2022 Mitchel Naylor MD [address] [facility], [place] [address], [place], [address] , [facility] 3 12:59:30 Pain of left hip joint 8984109695824 00 Active 2023 Mitchel Naylor MD [address], [address], [place], [address] , [facility] 4 12:33:48 Pruritic rash 90516490 Active 2023 [facility] [address], [address], [place], [address] , [facility] 4 14:57:54 Chronic rhinitis 73924629 Active 2024 [facility] [address] [facility], [facility] [address], [place], [address] , [facility] 5 09:56:02 Problem Notes None recorded. Procedures Surgical History Date Name Laterality Status Provider Name and Address Organization Details Recorded Time Medicare Wellness CPT Code, subsequent completed Hayden Tran RN [place] [employer] 05/13/2024 11:30:11 Hernia Surgery completed Not Available [facility] 09/07/2022 16:25:53 Imaging Results Imaging Date Name Status LastModified by Organization Details LastModified Time 06/18/2024 cardiac stress test completed [id number] [facility] [address], [place], [address], 06/19/2024 16:48:43 07/30/2024 US, echocardiogram completed [id number] [facility] [address], [place], [address], 08/01/2024 17:09:02 Procedure Notes None recorded. Medical [...] administe red by the provider 11/[address] [facility]: 0003- 0494- 20 Not Available Not Available [...] administe red by the provider 11/[address] [facility]: 0409- 4276- 17 Not Available Not Available [...] e) 50 mcg/actuati on nasal spray,suspe nsion Trona 2 sprays every day by intranasa l route. 2018 active Not Available Not Available Not Avai lable Xiidra 5 % eye drops in a dropperette active Not Available Not Available Not Available Fluzone High-Dose 6023-8943 (PF) 180 mcg/0.5 mL intramuscul ar syringe [...] cm Salma Villaseñor RN [place] - [facility] [employer] 01/10/2024 17:07:25 Date Recorded Body height Body mass index (BMI) Body weight Body temperature Heart rate Oxygen saturation Oxygen saturation in Arterial blood by Pulse oximetry Systolic blood pressure Diastolic blood pressure Provider Name and Address Organization Details Last Updated DateTime 4 162.56 cm 32.1 kg/m2 39546.7 7 g 99.4 [degF] 91 /min 97 % 97 % 180 mm[Hg] 94 mm[Hg] Kimberli Coffman RN [facility] [employer] [facility] 4 14:49:54 Date Recorded Body height Body mass index (BMI) Body weight Body temperature Heart rate Oxygen saturation Oxygen saturation in Arterial blood by Pulse oximetry Systolic blood pressure Diastolic blood pressure Provider Name and Address Organization Details Last Updated DateTime 4 162.56 cm 32.1 kg/m2 68707.7 7 g 99 [degF] 110 /min 96 % 96 % 188 mm[Hg] 102 mm[Hg] Hayden Tran RN [facility] [employer] [facility] 4 15:04:12 Date Recorded Body height Body mass index (BMI) Body weight Body temperature Heart rate Oxygen saturation Oxygen saturation in Arterial blood by Pulse oximetry Systolic blood pressure Diastolic blood pressure Provider Name and Address Organization Details Last Updated DateTime 4 162.56 cm 32.6 kg/m2 37338.5 5 g 98.4 [degF] 81 /min 93 % 93 % 198 mm[Hg] 102 mm[Hg] Hayden Tran RN [facility] [employer] [facility] 4 16:57:03 Date Recorded Systolic blood pressure Diastolic blood pressure Provider Name and Address Organization Details Last Updated DateTime 05/01/2024 162 mm[Hg] 78 mm[Hg] SALAZAR Barnett [address] [facility], [address], [place], [address], [facility] [employer] [facility] 05/01/2024 17:15:48 Date Recorded Body height Body mass index (BMI) Body weight Body temperature Heart rate Oxygen saturation Oxygen saturation in Arterial blood by Pulse oximetry Systolic blood pressure Diastolic blood pressure Provider Name and Address Organization Details Last Updated DateTime 4 162.56 cm 31.8 kg/m2 76923.5 9 g 98.2 [degF] 77 /min 97 % 97 % 162 mm[Hg] 80 mm[Hg] Hayden Tran RN [place] - [facility] 4 11:33:39 Social History Question Answer Notes LastModified by Organizat ion Details LastModified Time Tobacco Smoking Status Never Smoker Not Available [facility] 09/07/2022 16:25:47 Do You Have An Advance Directive? Yes [id number] Information not available 09/07/2022 What Is Your Level Of Alcohol Consumption? Occasional MIGRATION.682441 4243 Information not available 09/07/2022 Are You Blind Or Do You Have Difficulty Seeing? No MIGRATION.980984 1847 Information not available 09/07/2022 What Is Your Level Of Caffeine Consumption? Moderate [email or web address] Information not available 09/16/2022 In The 14 Days Before Symptom Onset, Have You Had Close Contact With A Laboratory-confirm ed COVID-19 While That Case Was Ill? No MIGRATION.107047 5948 Information not available 09/07/2022 In The 14 Days Before Symptom Onset, Have You Had Close Contact With A Person Who Is Under Investigation For COVID-19 While That Person Was Ill? No MIGRATION.485550 8708 Information not available 09/07/2022 Are You Deaf Or Do You Have Serious Difficulty Hearing? Yes MIGRATION.849031 5591 Information not available 09/07/2022 What Type Of Diet Are You Following? REGULAR MIGRATION.496758 4953 Information not available 09/07/2022 Do You Have A Medical Power Of Cement Handler? Yes MIGRATION.009862 3811 Information not available 09/07/2022 What Was The Date Of Your Most Recent Tobacco Screening? 12/29/2020 MIGRATION.159300 3135 Information not available 09/07/2022 Have You Ever Been Counseled For Unhealthy Alcohol Use? No Information not available 09/16/2022 Do You Use Any Illicit Or Recreational Drugs? No [email or web address] Information not available 09/16/2022 Has Tobacco Cessation Counseling Been Provided? No [email or web address] Information not available 09/16/2022 Have You Recently Traveled Abroad? No MIGRATION.602267 1541 Information not available 09/07/2022 Do You Have Any Dietary Restrictions? No MIGRATION.502002 2228 Information not available 09/07/2022 Do You Or Have You Ever Used Any Other Forms Of Tobacco Or Nicotine? No [email or web address] Information not available 09/16/2022 Sex: Unknown Functional Status Question Answer Note LastModified by Organizat [employer] Details LastModified Time Do you have difficulty walking or climbing stairs? Yes MIGRATION.5994945 026 Information not available 09/07/2022 Do you have transportation difficulties? No MIGRATION.7382260 026 Information not available 09/07/2022 Are you able to walk? YESWOREST MIGRATION.3343637 026 Information not available 09/07/2022 Do you have difficulty doing errands alone? No MIGRATION.7684819 026 Information not available 09/07/2022 Are you able to care for yourself? Yes MIGRATION.3202562 026 Information not available 09/07/2022 Do you have difficulty dressing or bathing? No MIGRATION.4008063 026 Information not available 09/07/2022 What is your exercise level? None MIGRATION.8699739 026 Information not available 09/07/2022 Mental Status Question Answer Note LastModified by Organizat [employer] Details LastModified Time Do you have difficulty concentrating, remembering or making decisions? No MIGRATION.[id number] 6 Information not available 09/07/2022 Family History Relationship Description Onset Age of this Age Resolved Age Notes LastModified by Organization Details LastModified Time Father Hypertensive disorder MIGRATION.[id number] Not available 09/07/2022 16:25:53 Notes:cancer - mother & fath er Medical History Condition Response ARTHRITIS Y HYPERTENSION Y Immunizations Vaccine Type Date Status Note Provider Nam e and Address Organization Details Recorded Time Influenza, high-dose, quadrivalent, PF 05/15/2023 completed Mitchel Naylor MD [address], [place] [address], [place], [address], [employer] [facility] [employer] 05/15/2023 13:09:58 Influenza, high-dose, trivalent, PF 05/13/2024 completed SALAZAR Barnett [address], [facility] [address], [place], [address], [employer] [facility] [employer] 05/13/2024 16:34:04 Influenza, high-dose, quadrivalent, PF 04/10/2020 completed Not Available [facility] 18:12:04 Past Encounters Encounter ID Performer Location Encounter Start Date Encounter Closed Date Diagnosis/Indication Diagnosis SNOMED-CT Code Diagnosis ICD10 Code Diagnosis Note [id number] [facility] [place] [address] [place] [address] 12/09/2020 00:00:00 01/05/2021 21:48:18 [id number] [facility] [address] [facility] [address] [place] [address] 12/29/2020 00:00:00 12/29/2020 15:08:20 [id number] [facility] [place] [address] [place] [address] 01/01/2021 00:00:00 01/01/2021 17:33:08 [id number] [facility] [place] [address] [place] [address] 04/16/2021 00:00:00 04/16/2021 20:37:30 [id number] [facility] [place] [address] [place] [address] 09/14/2021 00:00:00 09/14/2021 19:43:17 [id number] [facility] [place] [address] [place] [address] 11/23/2021 00:00:00 11/23/2021 08:57:21 [id number] [facility] [place] [address] [place] [address] 12/27/2021 00:00:00 12/27/2021 12:41:49 [id number] [facility] [place] [address] [place] [address] 01/11/2022 00:00:00 01/19/2022 13:20:54 [id number] [facility] [place] [address] [place] [address] 05/16/2022 00:00:00 06/08/2022 08:42:20 [id number] [facility] [address] [facility] [address] [place] [address] 08/16/2022 00:00:00 09/04/2022 16:05:40 [id number] DELIA Gusman [facility] [address] [facility] [address] [place] [address] 09/16/2022 14:40:59 09/16/2022 15:22:59 Hyperlipidemia 79710296 E78.5 Triglyceri adolph much more elevated since last labs.Will increase Rosuvastat in. Discussed healthy eating and exercise. Prostate s pecific antigen above reference range 401475289 R97.20 Chronic. Has been elevated, but it is trending down. Followed by urology. Gout 32656873 M10.9 Only has flares on rare occasion. Will plan to keep him on allopurino l as needed. He has only been taking when needing it for flare up, advised if it becomes more frequent will change to maintenanc e dosing. Serum crea tinine above reference range 758850928 R79.89 Chronic. He has been followed by nephrology and states no further testing indicated by them. Will continue to monitor for now. Hypertensive disorder 38 823023 I10 Will continue to monitor. He is currently already on triple therapy, has been on LIBORIO previously but could not tolerate due to cough. He states home readings are usually not as high, generally in the 140s systolic. We had a long discussion about weight loss, healthier diet/decre ase sodium. He will continue to monitor. [id number] Mitchel Naylor MD [facility] [address] [facility] [address] [place] [address] 11/15/2022 16:20:44 11/15/2022 17:12:13 Degeneration of intervertebral disc 62241487 M51.9 as a result of his time in service, will provide a nexus letter Anemia 306151459 D64.9 Serum crea tinine above reference range 321474413 R79.89 Gout 32465678 M10.9 [id number] Mitchel Naylor MD [facility] Primary [facility] [address] [facility] [address] [place] [address] 12/20/2022 14:21:20 12/20/2022 17:04:51 Anemia 351328285 D64.9 Serum crea tinine above reference range 300567676 R79.89 currently on 12 tab Gout 71529047 M10.9 Cobalamin deficiency 190 941975 E53.8 [id number] Mitchel Naylor MD [facility] Primary Care [facility] [address] [facility] [address] [facility] [place] [address] 03/02/2023 14:57:16 03/02/2023 15:46:26 Serum creatinine above reference range 326163367 R79.89 currently on 1/2 tab olmesartan /hctz daily but bp is above goalmay adjust bp med based on lab results Gout 21684790 M10.9 refill prednisone to have on hand Herpes simplex 81448592 B00.9 refill given to keep on hand [id number] Mitchel Naylor MD [facility] Primary Care [facility] [address] [facility] [address] [place] [address] 05/15/2023 12:27:14 05/15/2023 14:08:44 Essential hypertension 98521245 I10 cannot tolerate full tab olmesartan /hctz due to renal insufficie ncycontinu e diltiazem bidadd nebivolol 10 mg dailyf/u in 4 weeks Administra tion of influenza vaccine 26223430 Z23 [id number] Mitchel Naylor MD [facility] Primary Care [address] [place] [address] 09/11/2023 12:00:47 09/11/2023 13:19:35 Pain of left hip joint 8207106308 04841 M25.552 Anemia 483119903 D64.9 Serum crea tinine above reference range 410028861 R79.89 currently on 2 tab olmesartan /hctzwill check labs Gout 31805001 M10.9 refill prednisone to have on hand Cobalamin deficiency 190 275677 E53.8 Screening for malignant neoplasm of prostate 437375733 Z12.5 Hyperlipidemia 34676592 E78.5 [id number] Mitchel Naylor MD [facility] Primary Care [address] [place] [address] 11/13/2023 11:39:50 11/13/2023 12:29:08 Degeneration of lumbar intervertebral disc 83021401 M51.36 stablerefi ll givenhas to avoid nsaids as noted by nephrology Serum crea tinine above reference range 533545301 R79.89 seeing nephrology has d/c advilcan try turmeric and/or glucosamin e chondroiti n Essential hypertension 80621474 I10 cannot tolerate full tab olmesartan /hctz due to renal insufficie ncycontinu e diltiazem bidadd nebivolol 10 mg dailyf/u in 4 weeks 11/13/23: doing wellf/u in 3 months or sooner if needed [id number] SALAZAR Mojica [facility] Primary Care [address] [place] [address] 01/10/2024 14:46:36 01/10/2024 17:13:09 [id number] SALAZAR Mojica [facility] Primary Care [address] [place] [address] 01/30/2024 14:30:49 01/30/2024 15:09:37 Pruritic rash 29220653 L28.2 has been there for approx 2 monthsnote d to sal lower legs/armsh as been using calamine lotion daily, some relief [id number] SALAZAR Barnett [facility] Primary Care [address] [place] [address] 02/26/2024 14:56:28 02/26/2024 15:31:10 Renewal of prescription 363175112 Z76.0 Arthritis 1727528 M19.90 Doing well on current medication s, will continue to refill as needed. Degenerati on of lumbar intervertebral disc 31034196 M51.36 Doing well on current medication s, will continue to refill as needed. Essential hypertension 64443070 I10 188/102 [id number] /90 recheck.Wi ll continue current medication s and follow up in 6 months. Gout 95760348 M10.9 Doing well on current medication s.Denies recent flare ups Hypercholesterolemia 136 25364 E78.00 Doing well on current medication s, will continue to refill as needed. [id number] ROHINI Barnett-Roderick [facility] Primary [facility] [place] [address] [place] [address] 05/01/2024 16:49:16 05/01/2024 17:43:28 Pre-surgery evaluation 079708647 Z01.078 [id number] SALAZAR Barnett [facility] Primary [place] [address] [place] [address] 05/13/2024 11:28:04 05/13/2024 12:53:23 Adult health examination 409191729 Z00.00 Discussed medication compliance and routine follow up.Discuss ed healthy diet and routine exercise.Pritesh reynosoiewed vaccine records and made recommenda tions as needed.Enc ouraged annual eye and dental exams, as well as twice yearly dental cleanings. Screening for disorder 893421484 Z13.9 Screening for malignant neoplasm of prostate 038930923 Z12.5 Will check labs as listed below. Administra tion of influenza vaccine 78356621 Z23 Body mass index 30+ - obesity 452221933 Z68.31 Health Concerns Section Related Observation LastModified by Organization Detai ls LastModified Time None Recorded Concern Status LastModified by Organization Details LastModified Time None Recorded Advance Directives Directive Y: Payers Encounter Date Sequence Insurance Name Policy Number Policy Cuellar Covered Member ID Cuellar Member ID Guarantor Name 01/10/2024 1 [place] Sukhi Jay [id number] Sukhi Jay 01/10/2024 2 WPS - FOR LIFE Sukhi Jay [id number] Sukhi Jay 01/30/2024 1 [place] Sukhi Jay [id number] Sukhi Jay 01/30/2024 2 WPS - FOR LIFE Sukhi Jay [id number] Sukhi Jay 02/26/2024 1 [place] S[place] Jay [id number] Sukhi Jay 02/26/2024 2 WPS - FOR LIFE Sukhi Jay [id number] Sukhi Jay 05/01/2024 1 [place] Sukhi Jay [id number] Sukhi Jay 05/01/2024 2 WPS - FOR LIFE Sukhi Jay [id number] Sukhi Jay 05/13/2024 1 [place] Sukhi Jay [id number] Sukhi Jay 05/13/2024 2 WPS - FOR LIFE Sukhi Jay [id number] Sukhi Jay Notes Date Note Type Note Provider Name and Address Organization Details Recorded Time 01/30/2024 text/html pt is here for SALAZAR Beckwith [address] [facility], [place], [address], [employer] 01/30/2024 15:05:34 02/26/2024 text/html Patient is a 73 year old male that presents to the office for follow up. Patient reports he is doing well on current medications and has no concerns at this time. Patient denies chest pain and shortness of breath, nausea vomiting and diarrhea. SALAZAR Barnett [address] [facility], [place], [address], [employer] 02/26/2024 15:34:45 05/01/2024 text/html Patient is a 74 year old male that presents to the office for surgical clearance. Patient is scheduled on 05/07/24 to have L2-5 Decompression surgery at [facility], Dr. [place]. Patient denies all medical concerns at this time including chest pain and shortness of breath. SALAZAR Barnett [address] [facility], [place], [address], [employer] 05/02/2024 10:22:02 05/13/2024 text/html Patient is a [...] has been treating with OTC stool softeners. kfba-KNIETW-deeefua (8.35 in September)Cologuard-UTD due 2024Flu-orderedCovi d-UPMUgkb-dgxxkZjyu xzvn-GYMPevxxqlne-E TD Desirae French, [employer] [address] [facility] [address], [place], [address], [facility] 05/13/2024 16:39:05
--- NOTE | 2024-08-22 06:36 | WPDHPUPDATE1 ---
History and Physical Update Update Date/Time: 08/22/24 06:36 History and Physical has been reviewed, including an updated exam of the patient. There are NO changes in the patient's condition. Risks, benefits, and alternatives have been discussed and questions answered. Patient agrees to proceed with procedure.
[2024-08-22] MEDS: LACTATED RINGERS 1,000 ML 30 ML IV CONT (08:00)
--- NOTE | 2024-08-22 08:21 | P.PNAN_ITS ---
Anes - Initial Pre Proc Eval Procedure: Operation Date: 08/22/24 09:30 Proposed Procedures p Trans Rectal Ultrasound Fusion Guided Prostate Biopsy - Miles Horn MD Date/Time: 08/22/24 08:21 Surgeon: Miles Horn MD Pre Op Diagnosis: Elev PSA Patient Data Age: 74 Gender: M Height: 1.55 m Weight: 83.95 kg Allergies Allergy/AdvReac Type Severity Reaction Status Date / Time No Known Allergies Allergy Unverified 08/16/24 08:08 Home Medications ?Medication ?Instructions ?Recorded ?Confirmed ?Type diltiazem HCl 240 mg capsule,24 240 mg PO DAILY #90 caps 09/23/19 08/16/24 Rx hr,extended release carvedilol 12.5 mg tablet 12.5 mg PO Q12H 08/16/24 08/16/24 History cyanocobalamin (vitamin B-12) 1,000 mcg PO DAILY 08/16/24 08/16/24 History 1,000 mcg capsule duloxetine 30 mg capsule,delayed 30 mg PO DAILY 08/16/24 08/16/24 History release gabapentin 300 mg capsule 300 mg PO PRN PRN sleep 08/16/24 08/16/24 History losartan 50 mg tablet 50 mg PO DAILY 08/16/24 08/16/24 History montelukast 10 mg tablet 10 mg PO DAILY 08/16/24 08/16/24 History multivit,Ca,min-iron 8 mg-folic tablet PO DAILY 08/16/24 History acid 200 mcg-lycopene 600 mcg tablet (Centrum Men) pantoprazole 40 mg tablet,delayed 40 mg PO DAILY 08/16/24 08/16/24 History release rosuvastatin 40 mg tablet 40 mg PO HS 08/16/24 08/16/24 History tamsulosin 0.4 mg capsule 0.4 mg PO DAILY 08/16/24 08/16/24 History torsemide 20 mg tablet 10 mg PO DAILY 08/16/24 08/16/24 History tramadol 50 mg tablet 50 mg PO PRN PAIN 08/16/24 08/16/24 History vit C 250 mg-vit E 90 mg-zinc 40 1 tablet PO BID 08/16/24 08/16/24 History mg-copper 1 [id number] capsule (PreserVision AREDS-2) Patient hx anesthesia problems: none Family hx anesthesia problems: none Results Review: All pre-operative results and documents have been reviewed as part of the pre- operative evaluation. [facility] Past Medical History Medical History (Updated 08/22/24 @ 08:21 by Juaquin Castellon MD) Hyperlipidemia CORY (obstructive sleep apnea) HTN (hypertension) Family History Family History Father Family history of osteoarthritis Family history of primary malignant neoplasm of liver Family history of lung cancer Family history of throat cancer Patient's father is Mother Family history of malignant neoplasm Family history of malignant neoplasm of thyroid Family history of malignant neoplasm of bone Family history of malignant neoplasm of breast in first degree relative Other Hypertension Social History Social History Smoking status: Never smoker Alcohol intake: current Alcohol use details: BEER Living arrangements: with family Spiritual care concerns: No Anes - Eval Final PreProcedure Day of Procedure 08/22/24 08:21 Patient weight: obese Heart: regular rate and rhythm Lungs: clear to auscultation Airway: Mallampati scale class II Neurological: alert and oriented Last oral intake: >/= 8 hours ASA classification: III Emergent: no Anesthetic plan: proceed Anesthesia type and monitoring: general GIVS and standard monitoring Results Review: All pre-operative results and documents have been reviewed as part of the pre- operative evaluation. Informed Consent: The patient's anesthetic plan and its attendant risks and benefits were discussed with the patient/family/POA. Questions were solicited and answers provided to the satisfaction of the patient/family/POA.
[2024-08-22 08:41] VITALS: BP 130/54; PULSE 73; RESP 16; TEMP 36.3; O2SAT 96; BMI 35.2
[2024-08-22 10:00] VITALS: BP 102/45; PULSE 66; RESP 14; O2SAT 100
--- NOTE | 2024-08-22 10:02 | W.PM.PROC2 ---
Procedure Note - Detailed Date of Procedure 08/22/24 Pre-op Diagnosis Elevated PSA Post-op Diagnosis Same Procedure Performed [place] prostate fusion biopsy Surgeon Miles Horn MD Anesthesia General Description of Procedure Patient is brought to the operative suite where he is positioned in the left lateral position. Systemic sedation is administered per the anesthesia department. Surgical time-out is undertaken and it's verified the patient has received preoperative antibiotics. Transrectal ultrasonography is undertaken with a standard transrectal probe. The [employer] system is used to superimpose his previously obtained mpMRI prostate images on the real-time transrectal ultrasond images. Prostate volume is calculated at []cc. On the previous mpMRI there is regions of interest. Using the transrectal needle design for prostate biopsies 3 cores from each region of interest her obtain. We then proceeded with a standard 12 core prostate biopsy. Transrectal probe was removed and patient taken to recovery room having tolerated the procedure well. Prostate volume was 26gm. Blood loss was less than 10 cc.
[2024-08-22 10:30] VITALS: BP 126/53; PULSE 68; RESP 16
[2024-08-22 11:00] VITALS: BP 142/71; PULSE 68; RESP 16
== END 2024-08-22 11:15 | disposition home or self-care (01) ==
PROVIDERS: PCP Family Medicine; Visit Provider Urology
PROC: (CPT 55700; principal; 2024-08-22 09:30)
DX: C61 Malignant neoplasm of prostate (principal); R97.20 Elevated prostate specific antigen [PSA]; E78.5 Hyperlipidemia, unspecified; I10 Essential (primary) hypertension; G47.33 Obstructive sleep apnea (adult) (pediatric); E66.9 Obesity, unspecified; Z68.35 Body mass index [BMI] 35.0-35.9, adult; Z79.891 Long term (current) use of opiate analgesic; Z80.0 Family history of malignant neoplasm of digestive organs; Z80.1 Family history of malignant neoplasm of trachea, bronchus and lung; Z80.8 Family history of malignant neoplasm of other organs or systems; Z80.3 Family history of malignant neoplasm of breast
CPT/HCPCS: 76872; 55700; G0416; J0696; J1100; J2003; J2250; J2405; J2704; J3010; J7120

== ENCOUNTER 2024-09-06 12:39 | Emergency (ER) | payer MEDICARE, OTHER, SELFPAY ==
[2024-09-06 12:41] VITALS: BP 143/90; PULSE 103; RESP 19; TEMP 36.4; O2SAT 98
--- NOTE | 2024-09-06 13:18 | ED.FALL ---
HPI - Fall General Chief Complaint: Fall Stated Complaint: hip pain after fall Time Seen by Provider: 09/06/24 13:13 Source: patient and family History of Present Illness HPI Narrative: 74 YEAR WHITE MALE, WAS GETTING OUT OF HIS SUV, YESTERDAY, LOST BALANCE AND FELL LANDED ON THE RIGHT KNEE AND RIGHT HIP. DENIES LOSS OF CONSCIOUSNESS, GETTING WORSE, UNABLE TO STAND UP AND PUT WEIGHT ON THE RIGHT LEG CARE IS PATIENT DENIES ANY NUMBNESS OR TINGLING FOCAL NEURO DEFICIT. HISTORY OF HYPERTENSION HYPERLIPIDEMIA NOT ON BLOOD THINNER, DOES NOT SMOKE OR USE DRUGS, DRINKS OCCASIONALLY Related Data Home Medications ?Medication ?Instructions ?Recorded ?Confirmed ?Last Taken ?Type carvedilol 12.5 mg tablet 12.5 mg PO Q12H 08/16/24 08/22/24 08/22/24 History cyanocobalamin (vitamin B-12) 1,000 mcg PO DAILY 08/16/24 08/22/24 08/19/24 History 1,000 mcg capsule duloxetine 30 mg capsule,delayed 30 mg PO DAILY 08/16/24 08/22/24 08/22/24 History release gabapentin 300 mg capsule 300 mg PO PRN PRN sleep 08/16/24 08/22/24 08/21/24 History losartan 50 mg tablet 50 mg PO DAILY 08/16/24 08/22/24 08/21/24 History montelukast 10 mg tablet 10 mg PO DAILY 08/16/24 08/22/24 08/21/24 History multivit,Ca,min-iron 8 mg-folic 1 tablet PO DAILY 08/16/24 08/22/24 08/19/24 History acid 200 mcg-lycopene 600 mcg tablet (Centrum Men) pantoprazole 40 mg tablet,delayed 40 mg PO DAILY 08/16/24 08/22/24 08/19/24 History release rosuvastatin 40 mg tablet 40 mg PO HS 08/16/24 08/22/24 08/21/24 History tamsulosin 0.4 mg capsule 0.4 mg PO DAILY 08/16/24 08/22/24 08/21/24 History torsemide 20 mg tablet 10 mg PO DAILY 08/16/24 08/22/24 08/21/24 History tramadol 50 mg tablet 50 mg PO PRN PAIN 08/16/24 08/22/24 08/21/24 History vit C 250 mg-vit E 90 mg-zinc 40 1 tablet PO BID 08/16/24 08/22/24 08/19/24 History mg-copper 1 [id number] capsule (PreserVision AREDS-2) Allergies Allergy/AdvReac Type Severity Reaction Status Date / Time No Known Allergies Allergy Verified 09/06/24 12:40 Review of Systems Review of Systems: All systems reviewed & are unremarkable except as noted in HPI and below PMFSH Past Medical History Medical History Hyperlipidemia CORY (obstructive sleep apnea) HTN (hypertension) Family History Family History Father Family history of osteoarthritis Family history of primary malignant neoplasm of liver Family history of lung cancer Family history of throat cancer Patient's father is Mother Family history of malignant neoplasm Family history of malignant neoplasm of thyroid Family history of malignant neoplasm of bone Family history of malignant neoplasm of breast in first degree relative Other Hypertension Social History Social History Smoking status: Never smoker Alcohol intake: current Drinks per week: 9 Alcohol use details: BEER Living arrangements: with family Spiritual care concerns: No Exam Narrative: GENERAL APPEARANCE: WELL-DEVELOPED, WELL-NOURISHED SKIN: NORMAL COLOR HEAD: NORMOCEPHALIC, NONTRAUMATIC EYES: CLEAR CONJUNCTIVA ENT: OROPHARYNX NORMAL, EARS NORMAL, NOSE NORMAL NECK: SUPPLE, NONTENDER CHEST AND RESPIRATORY: AIRWAY PATENT, NO RESPIRATORY DISTRESS, NO ACCESSORY MUSCLE USE HEART: REGULAR RATE/RHYTHM ABDOMEN: SOFT, NONTENDER, NO ORGANOMEGALY, QUIET BOWEL SOUNDS VASCULAR: NORMAL PERIPHERAL PULSES, NORMAL CAPILLARY REFILL. MUSCULOSKELETAL: DIFFUSE PAIN AND SWELLING OF THE RIGHT KNEE ANTERIORLY, LIMITED RANGE OF MOTION, SLIGHT LIMITED RANGE OF MOTION OF THE RIGHT HIP, NO BRUISES OR SWELLING. NEUROLOGIC: ALERT AND ORIENTED ?3, SEISMOGRAPH SUPERVISOR IS NORMAL TESTED, NO GROSS MOTOR DEFICIT Course Vital Signs Vital signs: Vital Signs Temperature 36.4 C 09/06/24 12:41 Pulse Rate 103 H 09/06/24 12:41 Respiratory Rate 19 09/06/24 12:41 Blood Pressure 143/90 H 09/06/24 12:41 Pulse Oximetry 98 09/06/24 12:41 Oxygen Delivery Room Air 09/06/24 12:41 Temperature 36.4 C 09/06/24 12:41 Pulse Rate 103 H 09/06/24 12:41 Respiratory Rate 19 09/06/24 12:41 Blood Pressure 143/90 H 09/06/24 12:41 Pulse Oximetry 98 09/06/24 12:41 Oxygen Delivery Room Air 09/06/24 12:41 MDM - Fall MDM Narrative Medical decision making narrative: PATIENT HAD A FALL COMING OUT OF HIS SUV, COMPLAINING OF RIGHT KNEE AND RIGHT HIP PAIN X-RAY OF THE RIGHT HIP AND PELVIS SHOWED NO ACUTE ABNORMALITIES, X-RAY OF THE RIGHT KNEE SHOWED EFFUSION OTHERWISE NO FRACTURE. Differential Diagnosis Differential diagnosis: Likely other ( ABOVE) Imaging Data Radiologist's impression: Impressions Hip/Pelvis X-Ray 09/06/24 13:39 IMPRESSION: 1. Mild osteoarthritis of the hips. Knee X-Ray 09/06/24 13:40 IMPRESSION: 1. Severe right knee osteoarthritis. 2. Moderate-sized right knee joint effusion with loose bodies. Head CT 09/06/24 13:49 IMPRESSION: 1. Moderate nonspecific cerebral white matter disease, which likely represents chronic small vessel ischemic disease. Cervical Spine CT 09/06/24 13:50 IMPRESSION: 1. No fracture. 2. Severe cervical spondylosis. Critical Care Time Critical Care Time Critical Care Time: No Discharge Plan Discharge Clinical Impression: Acute hip pain, Acute knee pain Patient Disposition: Home, Self-Care Condition: Stable Instructions: Knee Pain (ED), Hip Pain (ED) Additional Instructions: RETURN IF SYMPTOMS ARE WORSENING , CALL YOUR FAMILY PHYSICIAN FOR APPOINTMENT, TAKE TYLENOL NEEDED FOR ACHES AND PAIN, CONTINUE HOME MEDICATIONS. Patient Language: Jordanian Prescriptions: New diclofenac sodium 75 mg tablet,delayed release (DR/EC) 75 mg PO BID PRN (Reason: pain) Qty: 14 0RF No Action torsemide 20 mg tablet 10 mg PO DAILY carvedilol 12.5 mg tablet 12.5 mg PO Q12H montelukast 10 mg tablet 10 mg PO DAILY tamsulosin 0.4 mg capsule 0.4 mg PO DAILY duloxetine 30 mg capsule,delayed release(DR/EC) 30 mg PO DAILY Patient Comments: TAKES FOR PAIN losartan 50 mg tablet 50 mg PO DAILY tramadol 50 mg tablet 50 mg PO PRN pantoprazole 40 mg tablet,delayed release (DR/EC) 40 mg PO DAILY rosuvastatin 40 mg tablet 40 mg PO HS gabapentin 300 mg capsule 300 mg PO PRN PRN (Reason: sleep) PreserVision AREDS-2 250-90-40-1 mg capsule 1 tablet PO BID Centrum Men 8 mg iron- 200 mcg-600 mcg tablet 1 tablet PO DAILY cyanocobalamin (vitamin B-12) 1,000 mcg capsule 1,000 mcg PO DAILY Follow-up/Referrals: Cyndy,Nelia Julio MD [Primary Care Provider] -
[2024-09-06] MEDS: HYDROcodone/acetaminophen (*CRX) 5-325 MG TABLET 1 TAB PO (13:55)
[2024-09-06] MEDS: IBUPROFEN 600 MG TABLET PO (13:56)
== END 2024-09-06 14:50 | disposition home or self-care (01) ==
PROVIDERS: Emergency Provider Emergency Medicine; PCP Family Medicine
DX: S89.91XA Unspecified injury of right lower leg, initial encounter (principal); S79.911A Unspecified injury of right hip, initial encounter; I10 Essential (primary) hypertension; E78.5 Hyperlipidemia, unspecified; G47.33 Obstructive sleep apnea (adult) (pediatric); Z79.899 Other long term (current) drug therapy; R90.82 White matter disease, unspecified; M47.812 Spondylosis without myelopathy or radiculopathy, cervical region; M17.11 Unilateral primary osteoarthritis, right knee; W17.89XA Other fall from one level to another, initial encounter
CPT/HCPCS: 70450; 72125; 73502; 73562; 99284; A9270

== ENCOUNTER 2025-04-28 13:38 | Outpatient (CLI) | payer MEDICARE, OTHER, SELFPAY ==
--- NOTE | ~2025-04-28 | CT_ITS ---
EXAMINATION: CT_LERTCWO_CT, CT_LELTCWO_CT DATE: 04/28/2025 13:10 INDICATION: Bilateral knee osteoarthritis and pain for preoperative planning TECHNIQUE: 1. High resolution computed tomography (CT) of the right lower extremity from the hip through the ankle was performed without intravenous contrast. Additional sagittal and coronal reconstructions were performed. Automated exposure control and iterative reconstruction technique were employed. The dose-length product was 1647.69 mGy-cm. 2. High resolution computed tomography (CT) of the left lower extremity from the hip through the ankle was performed without intravenous contrast. Additional sagittal and coronal reconstructions were performed. Automated exposure control and iterative reconstruction technique were employed. The dose-length product was 1656.31 mGy-cm. COMPARISON: None FINDINGS: There is advanced tricompartmental osteoarthritis with large marginal osteophytes at both knees with medial and patellofemoral predominance. There is approximately 1 cm lateral subluxation of the tibial plateau with respect to the femoral condyles of both the left and right knees. There is secondary remodeling of the articular cortices in the medial compartments. Moderate-sized bilateral knee joint effusions. There is also a moderate-sized Pak's cyst at the left knee. There is additional polyarticular osteoarthritis, moderate to severe at the right navicular cuneiform articulation and multiple bilateral tarsal metatarsal joints and mild at the bilateral hips, ankles and remaining joints in the bilateral feet. There is relatively symmetric subcutaneous edema at the bilateral calves. Extensive scattered atherosclerotic calcifications along many of the arteries in the bilateral lower limbs. Small right-sided and moderate left-sided fat-containing inguinal hernias. No pathologically enlarged pelvic or inguinal lymphadenopathy. IMPRESSION: 1. Advanced medial and patellofemoral compartment tricompartmental osteoarthritis of both knees. 2. Additional polyarticular osteoarthritis throughout the bilateral lower limbs, moderate severity at multiple joints in the bilateral mid feet. 3. Moderate-sized likely reactive joint effusions of both knees and moderate- sized Pak's cyst at the left knee. Reviewed, dictated and finalized at location A. IMPRESSION: 1. Advanced medial and patellofemoral compartment tricompartmental osteoarthrit is of both knees. 2. Additional polyarticular osteoarthritis throughout the bilateral lower limbs , moderate severity at multiple joints in the bilateral mid feet. 3. Moderate-sized likely reactive joint effusions of both knees and moderate-si zed Pak's cyst at the left knee.
--- NOTE | 2025-04-28 14:01 | ECG_ITS ---
Test Date: 2025-04-28 14:28:00 Measurements Intervals [place] Rate: 63 P: 40 NE: 219 QRS: -22 QRSD: 100 T: 9 QT: 383 QTc: 393 Interpretive Statements SINUS RHYTHM WITH FIRST DEGREE AV BLOCK INCOMPLETE RIGHT BUNDLE BRANCH BLOCK CANNOT R/O SEPTAL INFARCT, AGE INDETERMINATE INFERIOR INFARCT, AGE INDETERMINATE BASELINE ARTIFACT- II, III, V3-V4 ABNORMAL ECG No previous ECG available for comparison Electronically Signed On 04-28-2025 14:45:58 CDT by Chaka Henson D.O.
[2025-04-28 14:08] LABS: Hematocrit 35.5 % (42.0-52.0); Hemoglobin 11.7 g/dL (14.0-18.0)
[2025-04-28 14:21] LABS: Albumin Level 4.5 g/dL (3.5-5.1); Estimated Glomerular Filt Rate 39; Glucose 109 mg/dL (65-110)
--- OUTSIDE RECORDS SUMMARY | 2025-04-28 15:33 | XMS_ITS ---
Author Organization [facility] Address [address] [place] [address] Care Team Providers Care Forging Press Setter Up Name Role Phone Angeline Villaseñor Primary Care Provider [phone] Jessika Greenwood MD, Sumeet Shah Unavailable [phone] Ceasar Tate MD Unavailable [phone] Miles Horn MD Unavailable [phone] Active Problems Problem Noted Date Diagnosed Date Prediabetes 09/06/2024 Assessment & Plan (09/06/2024 9:47 AM [employer]CRAFT [employer] MECHANIC): Low-carbohydrate diet recommended, reduce weight, increase daily exercise as tolerated. Pain of right hip 09/03/2024 Assessment & Plan (09/06/2024 9:45 AM [employer] MECHANIC): Waxing and waning, may use [id number] Tylenol products as needed for pain. CKD stage 3a, GFR 45-59 ml/min 09/03/2024 Assessment & Plan (09/06/2024 9:46 AM [employer]CRA[employer] MECHANIC): Labs ordered, will follow. Low-sodium diet recommended, control blood pressures. Continue torsemide. Managed by Nephrology. Gastroesophageal reflux disease without esophagi tis 09/03/2024 Assessment & Plan (09/06/2024 9:46 AM AIRCRA[employer] MECHANIC): Asymptomatic. Stable. Continue current prescription medications, Protonix. Class 2 severe obesity due t o excess calories with serious comorbidity and body mass index (BMI) of 35.0 to 35.9 in adult 09/03/2024 Assessment & Plan (09/06/2024 9:46 AM AIRCRA[employer] MECHANIC): Weight reduction, daily exercise and dietary modifications recommended., as obesity can complicate their hypercholesterolemia and hypertension Hearing impaired person, bilateral 09/03/2024 Overview (09/03/2024): Has hearing aid, but does not wear them. He states it's because he's vain. Neurogenic claudication due to lumbar spinal elaina nosis 04/16/2024 Back pain 09/28/2023 Spinal stenosis 09/28/2023 Primary osteoarthritis of right knee 09/18/2023 Primary osteoarthritis of left knee 09/18/2023 Herpes simplex 03/02/2023 Cobalamin deficiency 12/20/2022 Assessment & Plan (09/06/2024 9:45 AM AIRCRA[employer] MECHANIC): Labs ordered, will follow. Anemia 11/15/2022 Assessment & Plan (09/06/2024 9:45 AM AIR[employer] MECHANIC): Currently asymptomatic, labs ordered, will follow. Prostate cancer 09/16/2022 Overview (09/03/2024): Managed by urology, under surveillance. High serum creatinine 09/16/2022 Degeneration of lumbar intervertebral disc 09/12 Overview (09/03/2024): S/p spinal surgery in lower spine 2023 Tailor's bunion of right foot 12/30/2019 Arthritis 12/16/2019 Gout 12/16/2019 Assessment & Plan (09/06/2024 9:44 AM AIRCRA[employer] MECHANIC): Currently asymptomatic, labs ordered, will follow. Benign hypertension with CKD (chronic kidney disease) stage III 12/16/2019 Assessment & Plan (09/06/2024 9:44 AM AIR[employer] MECHANIC): Blood pressure is at goal of less than 140/90, continue current prescription medications, carvedilol, losartan, nifedipine. Hypercholesterolemia 12/16/2019 Assessment & Plan (09/06/2024 9:45 AM AIRCRAFT [employer] MECHANIC): Low-cholesterol diet recommended, labs ordered, will follow. 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 Nuclear sclerotic cataract 08/18/2015 Visual field defect 03/04/2015 Acquired ptosis of eyelid of both eyes 5 Arthralgia of shoulder 02/26/2014 Overview (09/03/2024): bilateral Keratosis, senilis 01/25/2013 Lentigo 01/25/2013 Current Treatment and Therapy Plans No current plan information found. Past Treatment and Therapy Plans No past plan information found. Lifetime Dose Tracking * Chemical Lifetime Dose Automatic Entry Manual Entr y Fluoro Time 0.3 minutes 0.3 minutes 0 minutes Air kerma at the reference point (Ka,r) 18.007 mGy 1 8.007 mGy 0 mGy Resolved Problems Problem Noted Date Diagnosed Date Resolved Date Pruritic rash 01/30/2024 09/03/2024 Pain of left hip joint 09/10/202309/03 Disorder of bursae of shoulder region 02/23/2022 09/03/2024 Foot pain 12/16/2019 09/03/2024 Incarcerated inguinal hernia 02/15/2018 09/03/2024 Overview (02/15/2018): Added automatically from request for surgery [id number] Benign neoplasm of skin of trunk 01/25/2013 09/03/2024 Skin tag 01/25/2013 09/03/2024
--- OUTSIDE RECORDS SUMMARY | 2025-04-28 15:33 | XMS_ITS | Clinical Summary ---
Author Organization [facility] Address [address] [place] [address] Care Team Providers Care Detention Worker Name Role Phone Angeline Villaseñor Primary Care Provider [phone] Jessika Greenwood MD, Sumeet Shah Unavailable [phone] Ceasar Tate MD Unavailable [phone] Miles Horn MD Unavailable [phone] Allergies No known active allergies Medications rosuvastatin (CRESTOR) 40 mg tabletIndication s:hyperlipidemia Take 1 tablet (40 mg total) by mouth every morning 3 Active carvediloL (COREG) 12.5 mg tabletIndication s:hypertension Take 1 tablet (12.5 mg total) by mouth 2 (two) times a day with meals 4 Active tamsulosin (FLOMAX) 0.4 mg extended release capsuleIndicatio ns:benign prostatic hyperplasia with lower urinary tract sx Take 1 capsule (0.4 mg total) by mouth every morning 4 Active torsemide (DEMADEX) 20 mg tabletIndication s:Edema Take 1 tablet (20 mg total) by mouth early childhood before breakfast 4 Active tadalafiL (CIALIS) 5 mg tablet Take [...] ORAL) Take by mouth every morning Active NIFEdipine CC 60 mg 24 hr tablet Take 1 tablet (60 mg total) by mouth daily Active pantoprazole DR (PROTONIX) 40 mg EC tabletIndication s:Gastroesophage al reflux disease without esophagitis Take 1 tablet (40 mg total) by mouth every morning 90 tablet 1 5 09/03/19 26 Active Active Problems Problem Noted Date Diagnosed Date Prediabetes 09/06/2024 Assessment & Plan (09/06/2024 9:47 AM SECURITY OPERATIONS ENGINEER): Low-carbohydrate diet recommended, reduce weight, increase daily exercise as tolerated. Pain of right hip 09/03/2024 Assessment & Plan (09/06/2024 9:45 AM SECURITY OPERATIONS ENGINEER): Waxing and waning, may use [id number] Tylenol products as needed for pain. CKD stage 3a, GFR 45-59 ml/min 09/03/2024 Assessment & Plan (09/06/2024 9:46 AM SECURITY OPERATIONS ENGINEER): Labs ordered, will follow. Low-sodium diet recommended, control blood pressures. Continue torsemide. Managed by Nephrology. Gastroesophageal reflux disease without esophagi tis 09/03/2024 Assessment & Plan (09/06/2024 9:46 AM SECURITY OPERATIONS ENGINEER): Asymptomatic. Stable. Continue current prescription medications, Protonix. Class 2 severe obesity due t o excess calories with serious comorbidity and body mass index (BMI) of 35.0 to 35.9 in adult 09/03/2024 Assessment & Plan (09/06/2024 9:46 AM SECURITY OPERATIONS ENGINEER): Weight reduction, daily exercise and dietary modifications [...] 12/20/2022 Assessment & Plan (09/06/2024 9:45 AM SECURITY OPERATIONS ENGINEER): Labs ordered, will follow. Anemia 11/15/2022 Assessment & Plan (09/06/2024 9:45 AM SECURITY OPERATIONS ENGINEER): Currently asymptomatic, labs ordered, will follow. Prostate cancer 09/16/2022 Overview (09/03/2024): Managed by urology, under surveillance. High serum creatinine 09/16/2022 Degeneration of lumbar intervertebral disc 09/12 Overview (09/03/2024): S/p spinal surgery in lower spine 2023 Tailor's bunion of right foot 12/30/2019 Arthritis 12/16/2019 Gout 12/16/2019 Assessment & Plan (09/06/2024 9:44 AM SECURITY OPERATIONS ENGINEER): Currently asymptomatic, labs ordered, will follow. Benign hypertension with CKD (chronic kidney disease) stage III 12/16/2019 Assessment & Plan (09/06/2024 9:44 AM SECURITY OPERATIONS ENGINEER): Blood pressure is at goal of less than 140/90, continue current prescription medications, carvedilol, losartan, nifedipine. Hypercholesterolemia 12/16/2019 Assessment & Plan (09/06/2024 9:45 AM SECURITY OPERATIONS ENGINEER): Low-cholesterol diet recommended, labs ordered, will follow. 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 Nuclear sclerotic cataract 08/18/2015 Visual field defect 03/04/2015 Acquired ptosis of eyelid of both eyes 5 Arthralgia of shoulder 02/26/2014 Overview (09/03/2024): bilateral Keratosis, senilis 01/25/2013 Lentigo 01/25/2013 Resolved Problems Problem Noted Date Diagnosed Date Resolved Date Pruritic rash 01/30/2024 09/03/2024 Pain of left hip joint 09/10/202309/03 Disorder of bursae of shoulder region 02/23/2022 09/03/2024 Foot pain 12/16/2019 09/03/2024 Incarcerated inguinal hernia 02/15/2018 09/03/2024 Overview (02/15/2018): Added automatically from request for surgery [id number] Benign neoplasm of skin of trunk 01/25/2013 09/03/2024 Skin tag 01/25/2013 09/03/2024 Encounters Date Type Department Care Team Description 02/25/2025 Telephone [facility] [place] [address] [place] [id number] Angeline Villaseñor, DO Colonoscopy from Last 3 Months Immunizations Immunization Administration Dates Next Due Influenza, Quadrivalent, Hig h Dose, Preservative Free, Intrr 05/15/2023,05/31/2021,04/10/2020 Influenza, Trivalent, High D ose, Split, Preservative Free, Intramuscular 05/13/2024,04/27/2019,05/04/2018,05/19,05/12/2016 Influenza, Trivalent, Preser vative Free, Intramuscular 05/31/2021,04/19/2015 Influenza, Unspecified 05/15/2023,2019,05/12/2013,06/26 Influenza, Whole 05/02/2003 Pneumococcal Conjugate PCV 13 05/19/2017 Pneumococcal Polysaccharide PPV23 05/20/2018 Td, adsorbed 01/03/2000 Surgical History Surgery Date Site/Laterality Comments EPIDURAL INJECTION LUMBOSACRAL 05/23/2014 N/A Medical History Medical History Date Comments Personal history of other di seases of the circulatory system History of hypertension - (A dded by [facility]ANDA[facility] Conv) Personal history of other en docrine, nutritional and metabolic disease History of hyperlipi demia - (Added by [facility]ANDANA Conv) Sleep apnea Gastric reflux Glaucoma Hypertension CKD (chronic kidney disease) , stage III (HCC) Hyperlipidemia Family History Medical History Relation Name Comments [...] containing alc ohol? 2-3 times a week 09/03/2024 Q2: How many drinks containi ng alcohol do you have on a typical day when you are drinking? 3 or 4 09/03/2024 Q3: How often do you have si x or more drinks on one occasion? Never 09/03/2024 PHQ-2 Answer Date Recorded PHQ-2 Total Score (If total score is 3 or more points, staff should administer the PHQ-9) 0 09/03/2024 Personal Safety Answer Date Recorded Have you ever been in or are you currently in a harmful physical or emotional relationship or is someone making you feel afraid or unsafe? Denies 05/07/2024 Sex and Gender Information Value Date Recorded Sex Assigned at Not on file Legal Sex Male 2:55 AM SECURITY OPERATIONS ENGINEER Gender Identity Not on file Sexual Orientation Not on file Obstetrics History Last Filed Vital Signs Vital Sign Reading Time Taken Comments Blood Pressure 118/60 09/03/2024 1:23 PM SECURITY OPERATIONS ENGINEER Pulse 72 09/03/2024 1:23 PM SECURITY OPERATIONS ENGINEER Temperature 36.4 C (97.6 F) 09/03/2024 1:23 PM SECURITY OPERATIONS ENGINEER Respiratory Rate 16 09/03/2024 1:23 PM SECURITY OPERATIONS ENGINEER Oxygen Saturation 97% 09/03/2024 1:23 PM SECURITY OPERATIONS ENGINEER Inhaled Oxygen Concentration - - Weight 88.5 kg (195 lb 3.2 oz) 09/03/2024 1:23 P M SECURITY OPERATIONS ENGINEER Height 157.5 cm (5' 2) 09/03/2024 1:23 PM SECURITY OPERATIONS ENGINEER Body Mass Index 35.7 09/03/2024 1:23 PM SECURITY OPERATIONS ENGINEER Plan of Treatment Health Maintenance Due Date Last Done Comments Hepatitis C Screening 1950 Hepatitis B Screening 1969 Colon Cancer Screening-DNA Stool 07/11/2022 07/11/2019 Covid-19 Vaccine ( season) 2025 08/15/2021, 10/04/2020, 09/13/2020 Influenza Vaccine (#1) 2025 , 05/15/2023, 05/15/2023, Additional history exists Depression Screening 09/03/2025 09/03/2024 Fall Risk Assessment 09/03/2025 09/03/2024, 05/07/20 24 Well Visit 65+ 09/03/2025 09/03/2024 Zoster Vaccine (1 of 2) 09/03/2025 Post poned from 2001 (Patient declined, but will receive in the future) DTaP/Tdap/Td Vaccine (1 - Tdap) 09/03/2027 01/03/2000 Postponed from 01/04/2000 (Insurance / Financial) Pneumococcal vaccine 65+ Completed 05/20/2018, 05/10 Insurance MEDICARE [employer] LIFE MEDICARE FOR LIFE Care Teams Detention Worker Relationship Specialty Start Date End Date Angeline Villaseñor DO [address] [place] [id number] PCP - General Family Medicine 09/03/24 Sumeet Rosen Jr., MD [address] [place] [address] Consulting Physician Cardiology 09/03/24 [place] [id number] [address] [address] [address] [place] [address] Referring Physician Nephrology 09/03/24 Miles Horn MD [address] [facility] [address] [facility] [address] [place] [address] Consulting Physician Urology 09/03/24
--- OUTSIDE RECORDS SUMMARY | 2025-04-28 15:34 | XMS_ITS | Clinical Summary ---
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 Gender Identity Not on file Sexual Orientation Not on file Plan of Treatment Health Maintenance Due Date Last Done Comments DTAP/TDAP/TD VACCINES (1 - Tdap) 1970 COLORECTAL SCREENING 1996 Colorectal Cancer Screening 1996 FIT-DNA Q 3 years 1996 FIT/FOBT Q 1 year 1996 Flex Sig/CT Colonography Q 5 years 1996 ZOSTER VACCINE (1 of 2) 2001 INFLUENZA VACCINE (#1) 2025 , 04/10/2020, 04/27/2019, Additional history exists RSV VACCINE (60+ or ) (1 - 1-dose 75+ series) 2026 PNEUMOCOCCAL VACCINE 50+ YEARS Completed 05/20/2018 , 05/19/2017 Insurance [facility] [place] [id number] [address] [place] [address]
--- OUTSIDE RECORDS SUMMARY | 2025-04-28 15:34 | XMS_ITS | Clinical Summary ---
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 Seat Laster Name Role Phone Nelia Naylor MD Primary Care Provider [phone] Allergies No known active allergies Medications allopurinol (ZYLOPRIM) 100 MG tablet Take 200 mg by mouth if needed 9 Active fluticasone (FLONASE) 50 MCG/ACT nasal spray 2 sprays if needed 9 Active gabapentin (NEURONTIN) 300 MG capsule Take 300 mg by mouth if needed Active montelukast (SINGULAIR) 10 MG tablet Take 1 tablet by mouth if needed 2 Active pantoprazole (PROTONIX) 40 MG EC tablet Take 40 mg by mouth 1 (one) time each day before breakfast 2 Active rosuvastatin (CRESTOR) 40 MG tablet Take 40 mg by mouth 1 (one) time each day 3 Active tadalafil (CIALIS) 5 MG tablet Take 1 tablet by mouth 1 (one) time each day if needed Active traMADol (ULTRAM) 50 MG tablet Take 50 mg by mouth every 8 (eight) hours if needed 2 Active Multiple Vitamin (multivitamin) tablet Take 1 tablet by mouth 1 (one) time each day Active aspirin (ST DENA) 81 MG EC tablet Take 81 mg by mouth if needed Active DULoxetine (Cymbalta) [address] capsule Take 1 capsule (30 mg total) by mouth 1 (one) time each day Do not crush or chew. 30 capsule 11 4 04/14/20 29 Active carvedilol (COREG) 12.5 MG tablet Take 1 tablet (12.5 mg total) by mouth in the morning and 1 tablet (12.5 mg total) in the evening. Take with meals. 180 tablet 5 08/01/19 26 Active torsemide (DEMADEX) 20 MG tablet Take 1 tablet (20 mg total) by mouth 1 (one) time each day if needed (for wt> 190 lb or leg selling) 90 tablet 5 11/15/19 26 Active Additional Information Patient taking differently: 10 mgOralDaily, Reported on 04/14/2025 NIFEdipine CC (ADALAT CC) 60 MG 24 hr tablet Take 60 mg by mouth 1 (one) time each day before breakfast Do not crush, chew, or split. Active NIFEdipine CC (ADALAT CC) 30 MG 24 hr tablet Take 30 mg by mouth at bed time Do not crush, chew, or split. Active losartan (COZAAR) 100 MG tablet Take 1 tablet (100 mg total) by mouth 1 (one) time each day 90 tablet 5 12/18/19 26 Active tamsulosin (FLOMAX) 0.4 MG 24 hr capsule Take 1 capsule (0.4 mg total) by mouth 1 (one) time each day 90 capsule 1 5 Active tamsulosin (FLOMAX) 0.4 MG 24 hr capsule Take 1 capsule (0.4 mg total) by mouth 1 (one) time each day 90 capsule 5 04/16/20 25 Discontin ued(Reord er (does not appear on AVS)) Active Problems Problem Noted Date Diagnosed Date Hypertensive chronic kidney disease stage 3 2 07/2023 Back pain 09/28/2023 Spinal stenosis 09/28/2023 Essential hypertension 05/15/2023 Cobalamin deficiency 12/20/2022 Anemia 11/15/2022 Hypercholesterolemia 12/16/2019 Encounters Date Type Department Care Team Description 04/16/2025 Refill [facility], [address] [address] Faiza Bose CMA 04/16/2025 Office Communication [facility], [address] [address] Zafar Chambers MD 04/14/2025 12:30 PM CDT Office [place] [address] [place] [address] Zafar Chambers MD Hypertensive chronic kidney disease stage 3 (Primary Dx); Anemia, not otherwise specified; Cobalamin deficiency; Essential hypertension; Hypercholesterolemia , not otherwise specified; Spinal stenosis, not otherwise specified 03/25/2025 Orders [place] [address] [place] [address] Zafar Chambers MD from Last 3 Months Immunizations Immunization Administration Dates Next Due Influenza (IM) Preservative [...] Sign Reading Time Taken Comments Blood Pressure 112/50 04/14/2025 12:36 PM CDT Pulse 76 04/14/2025 12:36 PM CDT Temperature 36.8 C (98.3 F) 04/14/2025 12:36 PM CDT Respiratory Rate 18 04/14/2025 12:36 PM CDT Oxygen Saturation 92% 04/14/2025 12:36 PM CDT Inhaled Oxygen Concentration - - Weight 87.1 kg (192 lb) 04/14/2025 12:36 PM CDT Height 157.5 cm (5' 2) 04/14/2025 12:36 PM CDT Body Mass Index 35.12 04/14/2025 12:36 PM CDT Plan of Treatment Upcoming Encounters Date Type Department Care Team (Late st Contact Info) Description 08/18/2025 12:45 PM [employer]ATION [employer]PER[employer]OR Office Visit [facility], [facility] [address] [facility] [address] [place] [phone] Zafar Chambers MD [address] [place] [address] 1 [place] [phone] Health Maintenance Due Date Last Done Comments Colorectal Cancer Screening: Annual FOBT 2000 Colorectal Cancer Screening: Colonoscopy 2000 Colorectal Cancer Screening: Sigmoidoscopy 2000 Influenza Vaccine (#1) 2025 , 05/15/2023, 05/31/2021, Additional history exists Pneumococcal Vaccine: 50+ Years Completed 05/20/2018, 05/19/2017 Hepatitis B Vaccine Aged Out No longe r eligible based on patient's age to complete this topic Procedures Procedure Name Priority Date/Time Associated Diagnosis Comments PROTEIN / CREATININE RATIO, URINE Routine 03/25/2025 10:26 AM CDT VITAMIN D 25 HYDROXY Routine 03/25/2025 10:26 AM CDT CBC AND DIFFERENTIAL Routine 03/25/2025 10:26 AM CDT URINE ALBUMIN / CREATININE RATIO Routine 03/25/2025 10:26 AM CDT RENAL FUNCTION PANEL Routine 03/25/2025 10:26 AM CDT IRON PANEL (FE, TIBC, TSAT) Routine 03/25/2025 10:26 AM CDT PTH, INTACT AND CALCIUM Routine 03/25/2025 10:26 AM CDT from Last 3 Months Results * (ABNORMAL) Iron Panel (Fe, TIBC, TSAT) (03/25/2025 10:26 AM CDT) Iron, Total 51 50 - 180 mcg/dL [facility] TIBC 285 250 - 425 mcg/dL (calc) [facility] Iron Saturation (TSat) 18(L) 20 - 48 % (calc) [facility] 03/25/2025 10:2 6 AM CDT 03/25/2025 10:31 AM CDT Narrative [facility] - 03/26/2025 10:50 AM CDT FASTING:YES FASTING: YES Resulting Agency Comment Performing Organization Information: Site ID: [place] Name: [facility] Address: [address] [place] [address] Director: Shaw Love MD Sameed Candis Chambers MD LAB BLOOD ORDERABLES Final Res ult [facility] [address] [place] [address] * PTH, Intact and Calcium (03/25/2025 10:26 AM CDT) Pathologist [facility] Parathyroid Hormone, Intact 41 16 - 77 pg/mL [facility] Comment: Interpretive Guide Intact PTH Calcium ------- Normal Parathyroid Normal Normal Hypoparathyroidism Low or Low Normal Low Hyperparathyroidism Primary Normal or High High Secondary High Normal or Low Tertiary High High Non-Parathyroid Hypercalcemia Low or Low Normal High Calcium 9.0 8.6 - 10.3 mg/dL [facility] 03/25/2025 10:2 6 AM CDT 03/25/2025 10:31 AM CDT Narrative [facility] - 03/26/2025 10:50 AM CDT FASTING:YES FASTING: YES Resulting Agency Comment Performing Organization Information: Site ID: [place] Name: [facility] Address: [address] [place] [address] Director: Shaw Love MD us Sameed Candis Chambers MD LAB BLOOD ORDERABLES Final Res ult Performing Organization Address [facility] Co de Phone Number [facility] [address] [facility] [place] [address] * (ABNORMAL) Protein, Total, Random Urine w/Creatinine (Protein/Creat Ratio) (03/25/2025 10:26 AM CDT) Creatinine, Ur 42 20 - 320 mg/dL [facility] Urine Protein/Creati nine Ratio 571(H) 25 - 148 mg/g creat [facility] Protein/Creati nine Ratio, Urine 0.571(H) 0.025 - 0.148 mg/mg creat [facility] Protein Urine Random 24 5 - 25 mg/dL [facility] 03/25/2025 10:2 6 AM CDT 03/25/2025 10:31 AM CDT Narrative [facility] - 03/26/2025 10:50 AM CDT FASTING:YES FASTING: YES Resulting Agency Comment Performing Organization Information: Site ID: [place] Name: [facility] Address: [address] [place] [address] Director: Shaw Love MD us Sameed Candis Chambers MD LAB URINE ORDERABLES Final Res ult Performing Organization Address [facility] Co de Phone Number LOW [place] [facility] [place] [address] [place] [address] * (ABNORMAL) Urine Albumin / Creatinine Ratio (03/25/2025 10:26 AM CDT) Creatinine, Ur 42 20 - 320 mg/dL [facility] Urine Microalbumin 11.8 See Note: mg/dL [facility] Comment: Reference Range: Reference Range Not established Microalb/Creat Ratio 281(H) <30 mg/g creat [facility] Comment: The ADA defines abnormalities in albumin excretion as follows: Albuminuria Category Result (mg/g creatinine) Normal to Mildly increased <30 Moderately increased 30-299 Severely increased > OR = 300 The ADA recommends that at least two of three specimens collected within a 3-6 month period be abnormal before considering a patient to be within a diagnostic category. 03/25/2025 10:2 6 AM CDT 03/25/2025 10:31 AM CDT Narrative [facility] - 03/26/2025 10:50 AM CDT FASTING:YES FASTING: YES Resulting Agency Comment Performing Organization Information: Site ID: [place] Name: [facility] Address: [address] [place] [address] Director: Shaw Love MD us Kenyoned Candis Chambers MD LAB URINE ORDERABLES Final Res ult [facility] [address] [place] [address] * Vitamin D 25 Hydroxy (03/25/2025 10:26 AM CDT) Vitamin D, 25-OH, Total, IA 63 30 - 100 ng/mL [facility] Comment: Vitamin D Status 25-OH Vitamin D: Deficiency: <20 ng/mL Insufficiency: 20 - 29 ng/mL Optimal: > or = 30 ng/mL For 25-OH Vitamin D testing on patients on D2-supplementation and patients for whom quantitation of D2 and D3 fractions is required, the [facility]() 25-OH VIT D, (D2,D3), LC/MS/MS is recommended: order code 75242 (patients >2yrs). See Note 1 Note 1 For additional information, please refer to http://education.CrowdPC/faq/NBI487 (This link is being provided for informational/ educational purposes only.) 03/25/2025 10:2 6 AM CDT 03/25/2025 10:31 AM CDT Narrative [facility] - 03/26/2025 10:50 AM CDT FASTING:YES FASTING: YES Resulting Agency Comment Performing Organization Information: Site ID: [place] Name: [facility] Address: [address] [place] [address] Director: Shaw Love MD Kenyoned Candis Chambers MD LAB BLOOD ORDERABLES Final Res ult [facility] [place] [address] [place] [place] [address] * (ABNORMAL) CBC and Differential (03/25/2025 10:26 AM CDT) WBC 6.9 3.8 - 10.8 Thousand/ uL [facility] RBC 3.87(L) 4.20 - 5.80 Million/u L [facility] Hemoglobin 12.0(L) 13.2 - 17.1 g/dL [facility] Hematocrit 37.2(L) 38.5 - 50.0 % [facility] MCV 96.1 80.0 - 100.0 fL [facility] MCH 31.0 27.0 - 33.0 pg [facility] MCHC 32.3 32.0 - 36.0 g/dL [facility] Comment: For adults, a slight decrease in the calculated MCHC value (in the range of 30 to 32 g/dL) is most likely not clinically significant; however, it should be interpreted with caution in correlation with other red cell parameters and the patient's clinical condition. RDW 14.0 11.0 - 15.0 % [facility] Platelets 402(H) 140 - 400 Thousand/ uL [facility] MPV 9.0 7.5 - 12.5 fL [facility] Neutrophils Absolute 4,306 1,500 - 7,800 cells/uL [facility] Band Neutrophils Absolute, Manual Count CANCELED 0 - 750 cells/uL [facility] Comment:Result canceled by kenzie teixeira ancillary. Metamyelocytes Absolute CANCELED 0 cells/uL [facility] Comment:Result canceled by kenzie teixeira ancillary. Absolute Myelocytes CANCELED 0 cells/uL [facility] Comment:Result canceled by t he ancillary. Absolute Promyelocytes CANCELED 0 cells/uL [facility] Comment:Result canceled by t he ancillary. Lymphocytes Absolute 1,608 850 - 3,900 cells/uL [facility] Monocytes Absolute 697 200 - 950 cells/uL [facility] Eosinophils Absolute 228 15 - 500 cells/uL [facility] Basophils Absolute 62 0 - 200 cells/uL [facility] Blasts Absolute CANCELED 0 cells/uL [facility] Comment:Result canceled by t he ancillary. NRBC Absolute CANCELED 0 cells/uL [facility] Comment:Result canceled by t he ancillary. Neutrophils Relative 62.4 % [facility] Bands Absolute CANCELED % [facility] Comment:Result canceled by t he ancillary. Metamyelocytes Percent CANCELED % [facility] Comment:Result canceled by t he ancillary. Myelocytes Relative CANCELED % [facility] Comment:Result canceled by t he ancillary. Promyelocytes Relative CANCELED % [facility] Comment:Result canceled by t he ancillary. Lymphocytes 23.3 % [facility] Variant lymphocytes/100 WBC (Bld) CANCELED 0 - 10 % [facility] Comment:Result canceled by t he ancillary. Monocytes 10.1 % [facility] Eosinophils 3.3 % [facility] Basophils Relative 0.9 % [facility] Blasts CANCELED % [facility] Comment:Result canceled by t he ancillary. nRBC CANCELED 0 /100 WBC [facility] Comment:Result canceled by t he ancillary. Comment(s) CANCELED [facility] Comment:Result canceled by t he ancillary. 03/25/2025 10:2 6 AM CDT 03/25/2025 10:31 AM CDT Narrative [facility] - 03/26/2025 10:50 AM CDT FASTING:YES FASTING: YES Resulting Agency Comment Performing Organization Information: Site ID: [place] [facility] Address: [address] [place] [address] Director: Shaw Love us Kenyoned Candis Chambers MD LAB BLOOD ORDERABLES Final Res ult [facility] [address] [address] * (ABNORMAL) Renal Function Panel (03/25/2025 10:26 AM CDT) Glucose 123(H) 65 - 99 mg/dL [facility] Comment: Fasting reference interval For someone without known diabetes, a glucose value between 100 and 125 mg/dL is consistent with prediabetes and should be confirmed with a follow-up test. BUN 37(H) 7 - 25 mg/dL [facility] Creatinine 1.97(H) 0.70 - 1.28 mg/dL [facility] kenzie Lewis eGFR CKD-EPI CR 2020 35(L) > OR = 60 mL/min/1.7 3m2 [facility] kenzie Lewis BUN/Creatinine Ratio 19 6 - 22 (calc) [facility] Sodium 139 135 - 146 mmol/L [facility] Potassium 4.3 3.5 - 5.3 mmol/L [facility] Chloride 103 98 - 110 mmol/L [facility] k[facility] Lewis Bicarbonate (CO2) 27 20 - 32 mmol/L [facility] Calcium 9.4 8.6 - 10.3 mg/dL [facility] Phosphorus 3.6 2.1 - 4.3 mg/dL [facility] Albumin 4.6 3.6 - 5.1 g/dL [facility] 03/25/2025 10:2 6 AM CDT 03/25/2025 10:31 AM CDT Narrative [facility] - 03/26/2025 10:50 AM CDT FASTING:YES FASTING: YES Resulting Agency Comment Performing Organization Information: Site ID: [place] Name: [facility] Address: [address] [place] [id number] Director: Shaw Love us Kenyoned Candis Chambers MD LAB BLOOD ORDERABLES Final Res ult [facility] [address] [place] [address] from Last 3 Months Insurance Medicare [facility] Advance Directives Documents on File Type Date Recorded 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
== END 2025-04-28 13:39 | disposition home or self-care (01) ==
PROVIDERS: PCP Family Medicine; Visit Provider Orthopaedic Surgery
DX: Z01.818 Encounter for other preprocedural examination (principal); M17.0 Bilateral primary osteoarthritis of knee; M25.462 Effusion, left knee; M25.461 Effusion, right knee; M71.22 Synovial cyst of popliteal space [Baker], left knee; I44.0 Atrioventricular block, first degree; I45.10 Unspecified right bundle-branch block; R94.31 Abnormal electrocardiogram [ECG] [EKG]; E78.2 Mixed hyperlipidemia; D64.9 Anemia, unspecified; I10 Essential (primary) hypertension
CPT/HCPCS: 36415; 73700; 82040; 82565; 82947; 85014; 85018; 93005